=== PATIENT | female | born 1945 | race Caucasian/White ===

== ENCOUNTER 2018-04-20 13:49 | Inpatient (IN) | payer MEDICARE ==
[2018-04-20 14:23] LABS: Bilirubin Small (Negative); Blood, Urine Negative (Negative); Clarity CLOUDY (Clear); Glucose, Urine (Dipstick) Negative (Negative); Leukocyte Moderate (Negative); Nitrite Positive (Negative); Protein, Urine (Dipstick) Trace mg/dL (Neg-Trace); Specific Gravity, Urine 1.025 (1.002-1.036); Urobilinogen 0.2 mg/dL (0.2-1.0); pH, Urine 5.5 (5.0-9.0)
[2018-04-20 14:30] LABS: RBC/HPF 0-3 HPF (0-3); WBC/HPF 21-50 HPF (0-3)
[2018-04-20 14:31] LABS: Bacteria/HPF 3+ HPF (None Seen); Hyaline Casts/LPF 0-3 HYALINE CAST LPF (0-3 Hyaline)
[2018-04-20 15:05] LABS: #Basophils 0.1 thou/uL (0.0-0.2); #Lymphocytes 2.2 thou/uL (1.20-3.40); #Monocytes 1.2 thou/uL (0.11-0.59); %Basophils 0.7 % (0.0-1.0); %Lymphocytes 16.2 % (21.0-51.0); %Neutrophils 74.1 % (42.0-75.0); Hemoglobin 12.6 g/dL (12.0-16.0); Mean Corpuscular HGB CONC 31.5 g/dL (32.0-36.0); Mean Corpuscular Hemoglobin 28.5 pg (27.0-31.0); Mean Corpuscular Volume 90.4 fL (78.0-98.0); Mean Platelet Volume 6.4 fL (7.4-10.4); Platelet Count 489 thou/uL (130-400); RBC Distribution Width 13.2 % (11.5-14.5); Red Blood Cell (RBC) Count 4.42 mill/uL (4.20-5.40); White Blood Cell (WBC) Count 13.4 thou/uL (4.8-10.8)
[2018-04-20] MEDS ORDERED: Iopamidol 370 76% 100 ML VIAL ONE (15:08)
[2018-04-20 15:25] LABS: ALT (SGPT) 18 U/L (8-55); AST (SGOT) 20 U/L (5-34); Albumin 3.3 g/dL (3.4-4.8); Alkaline Phosphatase 84 U/L (40-150); Anion Gap 12 mmol/L (10-20); BUN (Urea Nitrogen) 8 mg/dL (9.8-20.1); Bilirubin, Total 0.5 mg/dL (0.2-1.2); Calc. Creatinine Clearance 0 mL/min (70-130); Calcium 9.3 mg/dL (7.8-10.44); Carbon Dioxide 27 mmol/L (23-31); Chloride 98 mmol/L (98-107); Estimated GFR-MDRD 77; Globulin 4.5 g/dL (2.4-3.5); Glucose 107 mg/dL (83-110); Lipase Less than 4 U/L (8-78); Potassium 4.5 mmol/L (3.5-5.1); Protein, Total 7.8 g/dL (6.0-8.3); Sodium 132 mmol/L (136-145)
[2018-04-20] MEDS ORDERED: Fentanyl 100 MCG/2 ML VIAL ONE ×4 (17:30→21:53)
[2018-04-20] MEDS ORDERED: Cefepime 2 GM VIAL ONE (20:12)
[2018-04-20] MEDS ORDERED: metroNIDAZOLE 500 MG/100 ML BAG ONE (20:12)
--- NOTE | 2018-04-20 20:48 | CT ---
CT ABDOMEN AND PELVIS WITH IV CONTRAST: 04/20/2018 HISTORY: Intermittent left lower quadrant abdominal pain for several months. Generalized weakness and difficu lty ambulating. COMPARISON: None available. FINDINGS: Partial visualization of bilateral breast prostheses. There is linear scarring versus atelectasis in the right middle lobe. There is also a small, approxi mately 7 mm pulmonary nodule in the right middle lobe. There is atelectasis present at each lung bas e. Degenerative changes are seen in the lumbar spine. There is a 2 cm calculus within the gallbladder lumen. There is a subcentimeter, low density focus at the medial aspect, lateral segment, left hepatic lobe. This may be related to volume averaging as opposed to a hypodense lesion, although difficult to darin racterize hypodense lesions cannot be entirely excluded. Subcentimeter, avg-fcbwo-su-characterize, hypodense lesions are seen in each kidney. There is mild left hydronephrosis and hydroureter, with dilatation of the ureter extending to the pel vis, where there are prominent inflammatory changes and phlegmon at the left aspect of the pelvis, ad jacent to the left lateral aspect of the sigmoid colon. There is also mild colonic wall thickening. There is a small fluid collection seen within the wall of the sigmoid colon, measuring approximately 2 cm, which may represent a tiny focal abscess collection. In addition, there is also a heterogeneo us focus in the proximal sigmoid colon which measures 2.2 cm. I am unsure if this is related to feca l material within the colon, or related to a small, contained perforation. There is a fluid and gas collection present in the inferior left psoas muscle and extending into the iliopsoas muscle, most co mpatible with an abscess collection. While overall dimensions are difficult to measure, given the sh ape of the abscess collection, the abscess collection measures approximately 11.8 cm craniocaudal x 6 .7 cm AP x 2.5 cm transverse. A small amount of free fluid is seen in the pelvis. No free intraperitoneal gas is appreciated. The spleen, pancreas, and bilateral adrenal glands demonstrate a normal CT appearance. The urinary bladder is decompressed and not well evaluated. The uterus is small in size. There are fluid filled loops of small bowel, which are at the upper limits of normal in size, which c ould be related to a developing ileus due to inflammatory changes in the left lower quadrant. IMPRESSION: 1. Prominent inflammatory changes and phlegmon in the left hemipelvis with a psoas and iliopsoas abs cess collection, with a probable small abscess collection involving the left lateral wall of the sigm oid colon. A heterogeneous focus is seen in the proximal sigmoid colon, which could be related to ret ained fecal material in the colon, but a contained perforation cannot be entirely excluded. The etio logy for the above findings is difficult to determine on this examination. There are colonic diverti cula seen, and findings could potentially be related to diverticulitis, as there does appear to be th ickening in the sigmoid colon. A neoplastic process involving the sigmoid colon is a differential co nsideration but is thought less likely, and findings are most likely infectious in etiology. 2. Left hydronephrosis and hydroureter due to inflammatory changes in the left hemipelvis. 3. Fluid-filled, mildly prominent loops of small bowel, which could be related to a developing ileus , due to inflammatory change in the left lower quadrant. 4. Cholelithiasis with gallbladder wall thickness at the upper limits of normal. 5. Low density focus, left hepatic lobe, which is difficult to further characterize. 6. Subcentimeter, zcl-gxqqh-db-characterize, hypodense lesions in each kidney. 7. Small amount of free fluid in the pelvis. 8. Approximately 7 mm pulmonary nodule, right middle lobe. Follow-up CT scan thorax is recommended. 9. Prominent atherosclerotic vascular calcifications and atherosclerotic plaque in the abdominal aor ta and iliac arteries. The above findings were discussed with KEON Pollack, in the emergency department, on 8, at 1949 hours. CODE CR POS: CARMITA
[2018-04-20 22:48] VITALS: BMI 19.4
[2018-04-20] MEDS ORDERED: Acetaminophen 325 MG TAB PO PRN (22:52)
[2018-04-20] MEDS ORDERED: Ondansetron ODT 4 MG TAB SL PRN (22:52)
[2018-04-20] MEDS ORDERED: Ondansetron PF 4 MG/2 ML Vial IVP PRN (22:52)
[2018-04-20] MEDS: Sodium Chloride 0.9% 1,000 ML IV SCH (23:05)
[2018-04-21] MEDS: Fentanyl 100 MCG/2 ML VIAL SLOW IVP PRN ×2 (03:48→05:50)
[2018-04-21] MEDS ORDERED: metroNIDAZOLE 500 MG in Premix Bag 1 BAG IVPB SCH (06:00)
[2018-04-21 06:19] LABS: ALT (SGPT) 15 U/L (8-55); AST (SGOT) 19 U/L (5-34); Albumin 2.6 g/dL (3.4-4.8); Alkaline Phosphatase 70 U/L (40-150); Anion Gap 16 mmol/L (10-20); BUN (Urea Nitrogen) 8 mg/dL (9.8-20.1); Bilirubin, Total 0.5 mg/dL (0.2-1.2); Calc. Creatinine Clearance 65 mL/min (70-130); Calcium 8.5 mg/dL (7.8-10.44); Carbon Dioxide 19 mmol/L (23-31); Chloride 107 mmol/L (98-107); Estimated GFR-MDRD Greater than 90; Globulin 3.6 g/dL (2.4-3.5); Glucose 82 mg/dL (83-110); Potassium 4.7 mmol/L (3.5-5.1); Protein, Total 6.2 g/dL (6.0-8.3); Sodium 137 mmol/L (136-145)
[2018-04-21 06:56] LABS: #Eosinphils 0.1 thou/uL (0.0-0.7); #Monocytes 1.7 thou/uL (0.11-0.59); #Neutrophils 10.6 thou/uL (1.40-6.50); %Basophils 0.2 % (0.0-1.0); %Eosinophils 0.7 % (0.0-10.0); %Lymphocytes 19.3 % (21.0-51.0); %Neutrophils 68.7 % (42.0-75.0); Hemoglobin 10.2 g/dL (12.0-16.0); Mean Corpuscular HGB CONC 31.6 g/dL (32.0-36.0); Mean Corpuscular Hemoglobin 27.7 pg (27.0-31.0); Mean Corpuscular Volume 87.7 fL (78.0-98.0); Mean Platelet Volume 7.3 fL (7.4-10.4); Platelet Count 408 thou/uL (130-400); RBC Distribution Width 13.1 % (11.5-14.5); Red Blood Cell (RBC) Count 3.68 mill/uL (4.20-5.40); White Blood Cell (WBC) Count 15.6 thou/uL (4.8-10.8)
[2018-04-21] MEDS ORDERED: Cefepime 2 GM in Sodium Chloride 0.9% 100 ML IVPB SCH (09:00)
[2018-04-21 09:05] LABS: INR-International Normal Ratio 1.3; PTT 38.8 SEC (22.9-36.1); Prothrombin Time 16.6 SEC (12.0-14.7)
[2018-04-21] MEDS: Sodium Chloride 0.9% 1,000 ML IV SCH (09:29)
--- NOTE | 2018-04-21 10:28 | HP ---
CHIEF COMPLAINT: Left groin pain, fever and chills. HISTORY OF PRESENT ILLNESS: The patient is a 72-year-old female who came from [place] to visit her daughter and she got sick. She developed a pain in her left groin other than what she had before, although she had some pain on and off in [place]. Her primary care physician told her that she has diverticulosis and diverticulitis and when she came to visit her daughter who lives in [place], she got sicker and they made decision about going to the emergency room for further evaluation and p ossible treatment. She was found to have abscess in her pelvis and she is admitted to the hospital f or further management of this problem. She complains about the left groin pain which is severe, on a nd off from time to time. It is much worse when she walks. She denied any nausea and vomiting. She denied any headache. Apparently, she has a history of coronary artery disease and MIs x2 and she wa s taking 4 or 5 different medications. She does not really know the names well, but she quit many mo nths ago. She said that they were making her sick and she decided to stop taking them altogether. S he denies any chest pains. She denies any shortness of breath. PAST MEDICAL HISTORY: 1. Diverticulosis. 2. Myocardial infarction x2. 3. Coronary artery disease. PAST SURGICAL HISTORY: 1. Shoulder surgery, status post fall and a rotator cuff tear. 2. Breast implants. 3. Abdominal surgery, unclear purpose. CURRENT MEDICATIONS: Herbs, as I mentioned above, she quit taking her regular medications many month s ago. FAMILY HISTORY: Mother of lung cancer. She was a smoker. Her father is not known to her. She is a very poor historian. SOCIAL HISTORY: She used to smoke half a pack for many, many years. She quit 4 months ago. She does not drink any alcohol. She uses marijuana daily. She lives in [place]. REVIEW OF SYSTEMS: CONSTITUTIONAL: Positive for fever and chills. EYES: Negative for eye pain and eye discharge. ENT: Negative for nasal congestion and epistaxis. RESPIRATORY: Negative for shortness of breath and cough. CARDIOVASCULAR: Negative for chest pain or palpitations. GASTROINTESTINAL: Positive for abdominal pain. Negative for nausea and vomiting. GENITOURINARY: Negative for hematuria and dysuria. SKIN: Negative for erythema or rash. NEUROLOGIC: Negative for headache and focal findings. PSYCHIATRIC: Negative for homicidal or suicidal ideations. PHYSICAL EXAMINATION: VITAL SIGNS: Blood pressure is 97/63, temperature is 98.3, pulse is 66, respiratory rate is 15, O2 s aturation is 97 on room air. HEENT: Head is atraumatic, normocephalic. She looks older than her biological age. She is responsi ve to me properly. Eyes are PERRLA, sclerae is nonicteric. Oral mucosa is dry. NECK: Supple, no lymphadenopathy. Thyroid is not palpable. LUNGS: Emphysematous, no rales or wheezing. HEART: S1, S2 distant. No S3, no S4. ABDOMEN: Soft, nontender, bowel sounds are present, no organomegaly. The left groin, there is a pal pable mass approximately 2 x 3 inches, tender on palpation. SKIN: Skin is not changed in the left groin. EXTREMITIES: No clubbing, cyanosis or edema. Peripheral pulses somewhat diminished on both tibialis posterior and dorsalis pedis arteries, similar bilaterally. CARDIOLOGY CLINICAL NURSE SPECIALIST: She is alert and oriented x4. There is not any sensory or motor deficits present. Cranial ner ves are intact. LABORATORY DATA: White count of 15.6, hemoglobin 10.2, hematocrit 32.3, platelet count is 408, lymph ocytes 19.3, INR is 1.3, PT of 16.6, APTT 38.8, normal sodium and potassium and chloride, CO2 of 19, BUN 8, creatinine 0.62, albumin 2.6, lipase less than 4. Urinalysis showed trace of ketones, positiv e for nitrites, small amount of bilirubin, moderate leukocyte esterase positive, 21-50 WBCs, 11-20 sq uamous epithelial cells, 3+ bacteria, 0-3 hyaline casts. Lactic acid yesterday, 2.1, then rechecked it was 1.0, her anion gap calculated is 14. CT of the abdomen showed: 1. Prominent inflammatory changes and phlegmon in the left hemipelvis with a psoas and iliopsoas abs cess collection with a probable small abscess collection involving the left lateral wall of the sigmo id colon. 2. Left hydronephrosis and hydroureter due to inflammatory changes in the left hemipelvis. 3. Fluid filled mildly prominent loops of small bowel which are most likely related to her abscess a nd possible developing ileus due to inflammatory changes in the left lower quadrant of the abdomen. 4. Cholelithiasis with gallbladder wall thickness at the upper limits of normal. 5. Low density focus left hepatic lobe which is difficult to further characterize. 6. Subcentimeter too small to characterize hypodense lesions in each kidney. 7. Small amount of free fluid in the pelvis. 8. Approximately 7 mm pulmonary nodule right middle lobe. 9. Prominent atherosclerotic vascular calcifications and atherosclerotic plaque in the abdominal aor ta and iliac arteries. IMPRESSION: 1. Iliopsoas and psoas abscess. 2. Left hydronephrosis and hydroureter, most likely secondary to #1. 3. Possible early ileus secondary to #1. 4. Cholelithiasis. 5. Low density focus in the left hepatic lobe, which is difficult to further characterize. 6. Subcentimeter too small to characterize hypodense lesions in each kidney. 7. Seven millimeter pulmonary nodule right middle lobe. Further investigation should be done on out patient basis. 8. Prominent atherosclerotic vascular calcification and atherosclerotic plaque. 9. History of myocardial infarctions x2. 10. Coronary artery disease. 11. Noncompliance. The patient stopped taking her medications many months ago and we know that she had several stents placed in her coronary arteries when she had her heart attack in September. PLAN: The plan is to admit her to the surgical floor. Condition is fair. Activity: Bed rest. IV fluids; normal saline at 100 mL per hour, metronidazole 500 mg q.8 h IV piggyback, cefepime 2 grams q .12 hours. Pain management with fentanyl 25 mcg slow IV push q.4h. Surgical evaluation by Dr. Franko pimentel who saw the patient in the emergency room and she will make decision about how this abscess is goi ng to be treated, whether it is going to be drained by radiologist or she will do the surgical open p rocedure. Also will continue both antibiotics. There were some changes in urine suggestive of UTI. She will be on n.p.o. for now until decisions are made. She will have SCDs for DVT prophylaxis.
[2018-04-21] MEDS ORDERED: Aspirin 81 mg Enteric Coated Tablet PO SCH (10:30)
[2018-04-21 13:40] LABS: Bilirubin Negative (Negative); Blood, Urine Negative (Negative); Clarity CLEAR (Clear); Glucose, Urine (Dipstick) Negative (Negative); Leukocyte Small (Negative); Nitrite Negative (Negative); Protein, Urine (Dipstick) Negative (Neg-Trace); Specific Gravity, Urine 1.034 (1.002-1.036); Urobilinogen 0.2 mg/dL (0.2-1.0)
[2018-04-21 13:44] LABS: Bacteria/HPF None Seen HPF (None Seen)
[2018-04-21] MEDS ORDERED: Lidocaine 1% PF 5 ML VIAL ONE (13:47)
[2018-04-21] MEDS ORDERED: Metoclopramide HCl 10 MG/2 ML VIAL ONE (13:47)
[2018-04-21] MEDS ORDERED: Ondansetron PF 4 MG/2 ML Vial ONE (13:47)
[2018-04-21] MEDS ORDERED: PROPOFOL 200 MG/20 ML VIAL ONE (13:47)
[2018-04-21] MEDS ORDERED: Glycopyrrolate 0.2 MG/ML 5 ML SYRINGE ONE (13:47)
[2018-04-21] MEDS ORDERED: Dexamethasone 20 MG/5 ML VIAL ONE (13:47)
[2018-04-21] MEDS ORDERED: PHENYLEPHRINE-NS 100 MCG/ML 10 ML SYRINGE ONE (13:47)
[2018-04-21 13:54] LABS: Pathc Cast-AUWi Flag 3.05 (0-2.49)
[2018-04-21] MEDS ORDERED: Famotidine/PF 20 mg/2ml Vial ONE (13:56)
[2018-04-21] MEDS ORDERED: Iothalamate Meglumine 60% 50 ML VIAL FS ONE (13:56)
[2018-04-21] MEDS ORDERED: Fentanyl 100 MCG/2 ML VIAL ONE (13:56)
[2018-04-21] MEDS ORDERED: Levofloxacin 500 mg/D5W 100 ml Premix Bag ONE (14:06)
[2018-04-21 14:10] LABS: Hyaline Casts/LPF 0-3 HYALINE CAST LPF (0-3 Hyaline); Other Casts/LPF None Seen LPF (0-3 Hyaline)
[2018-04-21] MEDS ORDERED: Meperidine HCl/PF 25 MG/ML VIAL SLOW IVP PRN (14:47)
[2018-04-21] MEDS ORDERED: Ondansetron HCl/PF 4 MG/2 ML Vial IVP PRN (14:47)
[2018-04-21] MEDS ORDERED: Promethazine HCl 25 MG/ML VIAL SLOW IVP PRN (14:47)
[2018-04-21] MEDS ORDERED: SUGAMMADEX SODIUM 200 MG/2 ML VIAL ONE (15:10)
--- NOTE | 2018-04-21 15:55 | RAD ---
RETROGRADE PYELOGRAM: 04/21/18 Two portable fluoroscopic images are presented for interpretation. HISTORY: 72-year-old female with left lower quadrant pain and left renal hydronephrosis. There is injection of the left ureter with areas of marked narrowing of the ureter at the level of th e inferior left sacral ala region with proximal dilatation beyond this areas of marked narrowing. A l eft ureteral stent is placed. IMPRESSION: Marked focal area of narrowing involving the left ureter at approximately the inferior left sacral al a region with proximal dilatation of the upper left ureter and renal upper collecting system. A left ureteral stent placed. POS: LILLY
[2018-04-21] MEDS ORDERED: Albumin 25% 100 ML ONE (16:01)
--- NOTE | 2018-04-21 16:50 | EKG ---
Test Reason : PREOP Blood Pressure : / mmHG Vent. Rate : 072 BPM Atrial Rate : 072 BPM P-R Int : 132 ms QRS Dur : 084 ms QT Int : 426 ms P-R-T Axes : 056 -01 -23 degrees QTc Int : 466 ms Normal sinus rhythm Low voltage QRS Possible Inferior infarct , age undetermined Inferior T wave changes Abnormal ECG No previous ECGs available Confirmed by DR. Davin FLAHERTY ([id number]) on 04/21/2018 4:50:23 PM Referred By: OLIVER Confirmed By:DR. Davin FLAHERTY
[2018-04-21] MEDS ORDERED: Phenazopyridine HCl 97.5 MG TABLET PO PRN (17:33)
[2018-04-21] MEDS: Piperacillin/Tazobactam 3.375 GM in Sodium Chloride 0.9% 100 ML IVPB SCH (18:21)
--- NOTE | 2018-04-21 19:26 | OP ---
DATE OF PROCEDURE: 04/21/2018 PREOPERATIVE DIAGNOSES: 1. History of left pelvic abscess, iliopsoas abscess, phlegmon due to diverticulitis, possible colon mass. 2. Left hydronephrosis secondary to above. POSTOPERATIVE DIAGNOSES: 1. History of left pelvic abscess, iliopsoas abscess, phlegmon due to diverticulitis, possible colon mass. 2. Left hydronephrosis secondary to above. PROCEDURE: Cystoscopy, left retrograde, 4.8 x 28 double-J ureteral stent. SURGEON: Maryanne Monreal D.O. ANESTHESIA: General. COMPLICATIONS: None apparent. DISPOSITION: To the recovery room in stable condition. INTRAOPERATIVE FINDINGS: 1. Bladder grossly unremarkable. 2. Left hydronephrosis with tortuous proximal ureter, ureteral stricture narrowing at the level of t he S1 to ureter. INDICATIONS FOR THE PROCEDURE AND HISTORY: Ms. Santos is a 72-year-old female who presented with pelvic abdominal discomfort, found to have pelvic, iliopsoas abscess due to likely sigmoid diverticu litis, although mass cannot be completely excluded. The patient is being monitored by General Surger y. Urologic consultation was obtained due to left hydronephrosis to the level of the phlegmon. She was advised regarding indications for ureteral stent placement. Risks and complications and indicati ons were reviewed. She desires to proceed. DESCRIPTION OF THE PROCEDURE: After an informed consent is signed, the patient is taken to the opera ting room, placed in a dorsal lithotomy position. Bilateral SHAMA hose, SCDs, and broad-spectrum antib iotics were provided. A 21 Macanese cystoscope was utilized for cystoscopy which demonstrated no evide nce of bladder or urethral mass. The UO's are identified in normal anatomical location. The left UO was intubated with a 5 Macanese open-ended catheter. Of note, KUB perioperative does demonstrate some retained contrast in the proximal ureter consistent with the CT scan. I was able to opacify the col lecting system without difficulty, demonstrating a left ureteral stricture at the level of the phlegm on at the S1 to ureter. The second is approximately 2 cm on KUB fluoroscopy. There was proximal tor tuosity of the ureter. A 0.35 sensor wire was able to be passed without significant issues. I was u nable to pass a 6-Macanese stent, therefore a 4.8 x 28 double-J ureteral stent passed. A 4.8 stent was able to be passed without difficulty. She tolerated the procedure well and transported to the [facility] room in stable condition. She is to be monitored by primary, General Surgery Service as she is s cheduled for CT guided pelvic abscess drainage. As she does have a ureteral stricture formation due to significant inflammatory component the phlegmon, we will leave the indwelling ureteral stent and r estage her pending General Surgery disposition regarding her pelvic abscess. Continue antibiotics du e to urine culture being positive for E. coli.
[2018-04-22] MEDS: Acetaminophen 1,000 MG in Premix Bag 1 BAG IVPB PRN ×3 (00:26→12:07)
[2018-04-22] MEDS: Piperacillin/Tazobactam 3.375 GM in Sodium Chloride 0.9% 100 ML IVPB SCH ×5 (00:26→23:19)
--- NOTE | 2018-04-22 04:21 | CON ---
DATE OF CONSULTATION: 04/21/2018 REASON FOR CONSULT: Complicated diverticulitis. HISTORY OF PRESENT ILLNESS: Ms. Santos is a 72-year-old woman who reports that she has been havi ng abdominal pain off and on for the past 4 months. She states that she is taking antibiotics for it and gets better, but then it comes back. She also reports that she has had episodes of diarrhea and swelling in her groin over the same amount of time, both of which come and go. She is unable to say really how long her most current episode has persisted, but over the past few months, she has lost a bout 20-25 pounds and has had an overall decline in her health. She has a known history of diverticu li and diverticulitis and states that she had a colonoscopy at another facility 2-4 years ago, which did not show any other abnormalities. She has not had any nausea or vomiting, but has had some chill s, but mostly just malaise and abdominal pain. PAST MEDICAL HISTORY: Coronary artery disease, reportedly she has had 2 heart attacks, most recently in September and has had 6 stents placed for this. She also has a history of diverticulosis and diverti culitis. PAST SURGICAL HISTORY: Shoulder surgery in July. Bilateral breast implants and removal of a lar ge birthmark from her lower abdomen. She states that there was no intra-abdominal component to this surgery. SOCIAL HISTORY: The patient does not smoke or drink, but does use marijuana. She is currently stayi ng with her daughter After getting sick during her visits here. MEDICATIONS: She is on no medications except for herbal supplements. She was prescribed a beta-bloc ker, aspirin, and Plavix after her heart attack, but stopped taking those because she felt like they were making things worse. REVIEW OF SYSTEMS: Ten-system review of systems is negative except per HPI. She has not had any dys uria or hematuria. FAMILY HISTORY: Noncontributory. ALLERGIES: She reports no known drug allergies. PHYSICAL EXAMINATION: VITAL SIGNS: Patient has been afebrile since her admission. Heart rate in the 60s, respirations 16, 94% saturated on room air, blood pressure 98/62. GENERAL: Reveals a thin, frail, elderly woman, in no acute distress. She is not flushed or toxic in appearance. She is not jaundiced or icteric. HEENT: Unremarkable. NECK: Supple without lymphadenopathy or thyroid nodules. HEART: Regular in its rate and rhythm without murmurs, rubs, or gallops. LUNGS: Clear to auscultation bilaterally. ABDOMEN: Soft, slightly distended, tender to palpation in the lower greater than upper abdomen and l eft greater than right. She has swelling and tenderness in her left groin, which is quite severe and a healed lower transverse abdominal incision. EXTREMITIES: Warm and well perfused without edema. NEUROLOGIC: No focal deficits. PSYCHIATRIC: Alert, oriented, and appropriate. IMAGING: I have reviewed the patient's CT with our radiologist. She has fairly severe diverticuliti s of the sigmoid colon with some areas adjacent to the colonic loops consistent with contained perfor ations and a large iliopsoas abscess containing gas and liquid extending down into the left groin. T he interloop areas are quite small. There are two, both of which measure under 3 cm at the iliopsoas abscesses over 6 cm in size and easily percutaneously accessible. She also has hydronephrosis of th e left kidney. LABORATORY DATA: Reveal an elevated white count of 15.6, hematocrit of 32, platelet count of 408. C oags were unremarkable and electrolytes were fairly normal. Her albumin is low at 2.6. UA on arriva l was contaminated, but had a lot of white cells, leukocyte esterase, and nitrites and her initial ur ine culture from her clean catch urine showed greater than 100,000 colonies of presumptive E. coli. ASSESSMENT: Complicated diverticulitis with perforation into the large psoas abscess. I have recomm ended percutaneous drainage and antibiotics to try to allow the diverticulitis to subside. Surgery a t this point would be quite hazardous due to the large degree of inflammation and she would require a n end-colostomy for at least 6 months. I was concerned about the hydronephrosis and put urology cons ult this morning and given the E. coli in her urine. Dr. Monreal elected to place a ureteral chandni nt. This will certainly be useful as the patient proceeds to surgery, she would be at very high risk for needing open surgery and risk for ureteral injury will be high. Given the patient's high risk f or need to proceed to the operating room, I have recommended that she have a Cardiology consult. We should also try to obtain her records from [place]. The patient states that she is able to get most of these records through her portal and that she also has printed records at home which her family i s going to bring in. Because of the need for the ureteral stent, her percutaneous drain had to be re scheduled for tomorrow since the patient has not had any nausea or vomiting, I think a clear liquid d iet is probably safe, although she will need to be n.p.o. after midnight for her next procedure.
--- NOTE | 2018-04-22 05:35 | CON ---
DATE OF CONSULTATION: 04/21/2018 CARDIOLOGY CONSULT NOTE INDICATION FOR CONSULTATION: This is a 72-year-old female with a history of coronary artery disease, who has been found to have a left groin or psoas abscess. We were asked to see her concerning her cardiac status. She is pain free, is asymptomatic at this time, but does have a history of stent placement recently and has not been taking her medications. HISTORY OF PRESENT ILLNESS: This is a very unfortunate 72-year-old female, apparently underwent angioplasties and stent placements in the past. I believe the first time according to the patient was 15 years ago. She most recently had a redo stent what sounds like it may perhaps in the right coronary, but was uncertain exactly where they were placed. Back in September of this year, she had more stents placed. I suspect this in the right coronary artery, perhaps she had the restenosis. She states she only had one-vessel disease; however, we do not have those records, and I cannot substantiate that information. She had been placed on Plavix in the past, but she stopped taking her medications, thinking that they were not helping her. She was on other medications, but does not remember the name of the medications, but has not been taking them, but she has continued to smoke until September of this year, and she continues to smoke marijuana. She has occasional alcohol use, but otherwise, she has decreased the amount recently and now pretty much just drinks socially. She denies any chest pain and has no shortness of breath and has been doing quite well apparently since her stent placements, has also a history of myocardial infarction, and according to the EKG, it looks as if she has had an inferior myocardial infarction in the past. PAST MEDICAL HISTORY: Significant for the coronary artery disease, angioplasty and stent placements as noted above in 2018, and prior to that, she also had stents placed 15 years ago. She does have a history of myocardial infarction, history of diverticulitis or diverticuli. She has had a rotator cuff repair, and she also had breast implants. MEDICATIONS: She had been off her medications. She is uncertain as to what she was taking, but at some point in time, she was on Plavix, and she has apparently been doing quite well. She does say she had continued to take some aspirin. Once we have determined what kind of stent she has, it might be advantageous to the patient to resume her Plavix, but once I would suggest that we address her abscess first, and once it is finished, then we can resume her Plavix. ALLERGIES: None according to the patient. FAMILY HISTORY: Unremarkable for any early heart disease. Her mother did have some lung cancer and in her 80s. SOCIAL HISTORY: The patient worked in the past. She now just does what she wants to do pretty much. 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 She smoked heavily in the past, but stopped about 4 years ago. She has no significant alcohol use. She has children, who are alive and well. Apparently , she is staying with her daughter at this time. REVIEW OF SYSTEMS: A 12-point review of systems were unremarkable except for the abscess in the left groin area, and on review, the groin area does not appear that this was an area that she underwent angioplasty and stent placement or cardiac catheterization. I did not see any signs that she had performed it, but it appears to be that it was done on the right side. Otherwise, her 12- point review of systems was unremarkable. PHYSICAL EXAMINATION: GENERAL: Reveals a thin-statured, elderly female, who actually appears her stated age. She at times appears to be somewhat confused about some of the issues regarding her illness at least surrounding her cardiac status. VITAL SIGNS: She is afebrile at this time. Heart rate is in the 60s-70s and shows a sinus rhythm on the EKG, respiratory rate is about 18, O2 saturation is 93%, blood pressure 99/62. HEENT: Shows head to be normocephalic and atraumatic. Carotid pulses are present. There were no bruits. There is no JVD. The thyroid is not enlarged. CHEST: Clear to auscultation. I did not hear any rales, rhonchi, or wheezing at this time. CARDIOVASCULAR: Exam reveals a regular rate and rhythm. She has a normal S1, S2. I cannot hear an S3 nor an S4. There were no significant murmurs, heaves, thrills, bruits, or rubs. ABDOMEN: Soft and nontender. She does have tenderness of the left groin area. There is also palpable mass at that area and that most likely is the area of her abscess. She also has some discoloration over the suprapubic area, which she says there was a large mole or discoloration had been removed in the past. There was a defect that had been removed. EXTREMITIES: Show no clubbing, cyanosis, or edema. Pedal pulses are present as well as femoral pulses. LABORATORY DATA: Shows a sodium of 137. Her BUN was 8 with a creatinine of 0.62. Blood sugar was 82. WBC is 15,600, hemoglobin 10.2, platelet count of 408,000. IMAGING STUDIES: EKG shows a normal sinus rhythm with evidence of old inferior myocardial infarction. IMPRESSION: 1. Known coronary artery disease, for which, she has undergone angioplasty and stent placement with a history of myocardial infarctions in the past. I suspect this involves the right coronary artery. It will be advantageous for us to obtain records to determine exactly whether she has any other underlying coronary artery disease, to see whether or not she will be at risk, but she denies any chest pain. 2. History of apparently an iliopsoas abscess with some left hydronephrosis and hydroureter. I believe she is to undergo drainage in the next day or two. She also has had some discussion as to whether or not to approach iliopsoas abscess either with surgically or to percutaneously, it would appear that most likely her cardiac status will be stable for either method. I believe she has already had the stent placed to the left kidney area for the hydronephrosis. 3. History of tobacco abuse in the past. She no longer smokes. She does continue to use marijuana on a routine basis. It was suggested that she abstain from this at this time. At this time, we will obtain an echocardiogram for evaluation of left ventricular systolic function. We will try to obtain records to determine what stents were placed and where and whether or not she has had any previous recent stress testing or cardiac echocardiograms. She thinks she knows the hospital where her procedure was performed, but she is not aware of the physician. This was done at [facility] in [place], [place]. We will see whether or not we can obtain some records as to the cardiac history. DORCAS
[2018-04-22] MEDS: Aspirin 81 mg Enteric Coated Tablet PO SCH (07:31)
--- NOTE | 2018-04-22 08:07 | CON ---
DATE OF CONSULTATION: 04/21/2018 REASON FOR CONSULT: 72-year-old female admitted to medical service, visiting family from [place]. She has had history of lower pelvic, abdominal discomfort , with decreased appetite. CT demonstrated pelvic, iliopsoas abscess with significant inflammation of the sigmoid colon likely diverticulitis. Gen. surgery following, currently being managed conservatively. Plan percutaneous drainage of lower pelvic abscess. CT also demonstrated left hydronephrosis at the level of the phlegmon in the lower pelvis therefore urologic consultation advise. Patient does have history of tobacco abuse, prior history of [place] cardiology is yet to seen. Urine culture is contaminated however demonstrates Escherichia coli which I did initiate antibiotic therapy. She denies history of kidney stones, recurrent UTI. PAST MEDICAL HISTORY: Diverticulosis, myocardial infarction x2, coronary artery disease. PAST SURGICAL HISTORY: Includes left rotator cuff, breast implants, likely abdominoplasty based on incision. CURRENT MEDICATIONS: Include aspirin 81 mg, sodium chloride. I did add Zosyn upon reviewing her urine culture with [employer] accounting professional to OR. ALLERGIES: No known drug allergies. FAMILY HISTORY: Positive for lung cancer. SOCIAL HISTORY: History of tobacco abuse, quit 4 months ago, uses marijuana daily. Lives in [place]. PHYSICAL EXAMINATION: ABDOMEN: Soft. There is an incision consistent with abdominoplasty. GENITOURINARY: Currently deferred. EXTREMITIES: No cyanosis, clubbing or edema. NEUROLOGIC: No gross focal deficits. PSYCHIATRIC: Appears to be appropriate and intact. PERTINENT LABORATORIES: White count 13 upon presentation, currently is 15, hemoglobin 10, platelets 408. INR is 1.3, PTT 38, creatinine stable at 0.62. Urinalysis demonstrates nitrite positive urine, output is contaminated with moderate leukocytes, 20-50 wbc's, 0-3 rbc's. Urine culture demonstrating E. coli, sensitivity pending. Repeat UA C&S by primary service. CT of the abdomen and pelvis, prominent inflammatory changes and phlegmon in the left hemipelvis with psoas, iliopsoas abscess collection. There is likely a small abscess collection involving the left lateral and sigmoid colon. Diverticulosis, cancer cannot be completely ruled out from the colon. There is incidental left hydroureteronephrosis due to inflammatory changes in the hemipelvis. Per my review, there is symmetric enhancement; however, there is dilated collecting system with dilated ureter to the level of the phlegmon. Incidental 7 mm pulmonary nodule, prominent atherosclerosis. IMPRESSION/PLAN: 1. Ms. Santos is a 72-year-old female from [place] admitted for pelvic abscess likely from sigmoid diverticulitis, iliopsoas psoas abscess. 2. Urologic issues of hydronephrosis secondary to inflammatory process. Urine culture positive, although it is contaminated; however, may reflect true urinary tract infection. Repeat UA C&S has been obtained. Advised patient regarding cystoscopy, left retrograde stent placement. After her convalescence from the inflammatory process of her pelvis and definitive treatment of her diverticulosis, diverticulitis, I would restage her ureter with retrograde to assess for stent removal candidacy. She is NPO. [employer] accounting professional to OR. [facility]
--- NOTE | 2018-04-22 10:10 | PRG ---
DATE OF SERVICE: 04/22/2018 SUBJECTIVE: The patient is seen and examined at bedside. Dr. Galvan is in the room and she is visi ting with the patient too. The patient is doing significantly better. She does not have much pain a nymore. She did not have fever. OBJECTIVE: VITAL SIGNS: Blood pressure is 107/65, pulse is 52, temperature 97.6, respiratory rate is 16, O2 sat uration is 96% on room air. HEENT: Head is atraumatic and normocephalic. Eyes are PERRLA. Sclerae is nonicteric. Oral mucosa is somewhat dry. NECK: Supple, no lymphadenopathy. LUNGS: Emphysematous. HEART: S1 and S2 normal, no S3, no S4. ABDOMEN: Soft, nontender, bowel sounds are present, no organomegaly. Left groin palpable lesion as yesterday, somewhat smaller and nontender on palpation. There is no erythema in the groin. NEUROLOGICAL EXAMINATION: She is alert and oriented x4. There is not any motor or sensory deficit. Cranial nerves are intact. LABORATORY DATA: None this morning. Microbiology shows growth of E. coli, which is almost pansensit garry except for fluoroquinolones. IMPRESSION: 1. Iliopsoas abscess, secondary to diverticulitis. Patient is on Zosyn at this point. She will hav e her abscess drained by Interventional Radiology today. 2. Left hydronephrosis with hydroureter. The patient was seen by Dr. Monreal, urologist, who pl aced a stent to her left ureter stricture yesterday. 3. Cholelithiasis, asymptomatic. 4. A 7 mm pulmonary nodule in the right middle lobe. Further investigation will be done on outpatie nt basis. 5. Prominent atherosclerotic vascular calcification and atherosclerotic plaque in setting of history of coronary artery disease and myocardial infarctions x2. 6. Noncompliance. The patient was seen by planner, who is trying to get more information from her place where she had stenting done during her myocardial infarction. At this point, the patient is not complaining about any chest pains, so as mentioned above, the plan is to go forward with the percutaneous drainage of the abscess today. Continue pain management, cont inue IV Zosyn, and most likely, she will be on clear liquids today. We will continue current regimen with IV fluids.
[2018-04-22] MEDS ORDERED: Midazolam HCl 2 mg/2 ml Vial ONE (10:12)
[2018-04-22] MEDS ORDERED: Lidocaine 1% PF 5 ML VIAL ONE (10:13)
[2018-04-22] MEDS ORDERED: Sodium Bicarbonate 2.5 MEQ/5 ML VIAL ONE (10:13)
[2018-04-22] MEDS ORDERED: Fentanyl 100 MCG/2 ML VIAL ONE (10:29)
--- NOTE | 2018-04-22 10:55 | PDOC.GSPN ---
Surgery Progress Note: Subj - Subjective Narrative: Patient is feeling much better today. Her abdominal pain is gone down and the pain and swelling in her groin his last period she has passed a lot of gas and had a mucousy bowel movement. She denies any nausea vomiting fevers or chills. Her abdomen is soft and less distended. She is only mildly tender to palpation in the left lower quadrant and groin. The swelling in the groin does seem less. Urine output is okay. Assessment/plan: Complicated diverticulitis with symptomatic improvement on antibiotics. She is scheduled for percutaneous drain of her iliopsoas abscess today. I am hopeful that we can avoid surgery during this hospitalization. I consider starting her on TPN given her clinical improvement. He can hold off on this. Hopefully we will be able to advance her diet to full liquids after her percutaneous drain placement, and address her chronic malnutrition with dietary supplements and protein shakes. Dr. Valera will be covering for the next few days as I'm going out of town. Surgery Progress Note: Obj - Vital signs Vital signs: Vital Signs - Most Recent Temp Pulse Resp BP Pulse Ox 97.6 F 52 L 16 107/65 96 04/22/18 07:59 04/22/18 07:59 04/22/18 07:59 04/22/18 07:59 04/22/18 08:00 Surgery Progress Note: Results - Labs Result Diagrams: 04/21/18 05:29 04/21/18 05:29
--- NOTE | 2018-04-22 15:53 | CT ---
CT GUIDED LEFT PSOAS AND ILIOPSOAS ABSCESS COLLECTION DRAINAGE: 04/22/18 HISTORY: Fluid and gas collection involving the distal left psoas muscle and extending to the left iliopsoas m uscle. Drainage was requested. TECHNIQUE: The procedure including risks and complications were explained to the patient and informed consent wa s obtained. The patient was placed on the CT scan table in the supine position. Limited noncontrasted CT scan was obtained through the level of the abscess collection with grid localizer in place. An ar ea was marked and then meticulously prepped and draped in the usual sterile fashion. Skin and subcutaneous tissues were infiltrated with buffered 1% lidocaine for local anesthesia. 21 ga uge needle was advanced into the collection and position was confirmed with three axial noncontrasted CT images. The needle was exchanged over a 0.018 inch guide wire for a 5 [place] introducer sheath an d a 0.035 inch Amplatz guide wire was placed. Positioning was confirmed with axial CT images. A small skin incision was made. The introducer sheath was exchanged over the quide wire for an 8 Fren ch tissue dilator followed by placement of an 8 [place] Wilmer loop drainage catheter. The guide wire wa s removed, and approximately 10 mL of purulent fluid was aspirated. Positioning was evaluated with ax ial noncontrasted CT images. Wilmer loop portion of the drainage catheter was noted to be within the co llection in the region of the psoas muscle and as the result the catheter was withdrawn. An addition al 20 mL of purulent fluid was aspirated. The catheter was flushed and placed to gravity drainage. The catheter was sutured in place utilizing 2-0 Ethilon suture. A dry sterile dressing was placed. FINDINGS: Technically successful left psoas and iliopsoas abscess drainage with placement of an 8 [place] Wilmer loop all purpose drainage catheter within the collection. Market Maker images demonstrate partial visualization of a left ureteral stent. Most proximal portion which is not imaged. Small amount of free fluid is seen in the pelvis. IMPRESSION: Technically successful left psoas/iliopsoas abscess drainage. Specimen was sent for labs. POS: [facility]
--- NOTE | 2018-04-22 17:28 | PRG ---
DATE OF SERVICE: 04/22/2018 INPATIENT PROGRESS NOTE SUBJECTIVE: The patient is resting comfortably, echocardiogram in progress. The patient states that her component of her left lower pelvic discomfort has improved since the stent. OBJECTIVE: VITAL SIGNS: Stable. She is afebrile. I's and O's 550 out. not strictly documented. ABDOMEN: Soft. No rigidity, no rebound. She does have residual left mid to lower pelvic discomfort with no gross rigidity appreciated. PERTINENT LABORATORY DATA: No new labs. Creatinine yesterday 0.6. Repeat UA with initial one being contaminated appears to be still contaminated. Prior urine culture demonstrating E. coli. Repeat urine culture is pending. IMPRESSION AND PLAN: Ms. Santos is a 72-year-old female who presents with, 1. Left lower pelvic abscess. 2. Iliopsoas abscess. 3. Likely diverticulitis. 4. Urologic issues of left hydroureteronephrosis, cystoscopy retrograde demonstrates component of ureteral stricture at the level of the phlegmon, postop day number 1 stent. The patient will continue indwelling ureteral stent. I will follow along on this admission. Informed patient that after resolution of her pelvic abscess, phlegmon, I would advise regarding restaging cystoscopy, ureteral stricture dilatation. [facility]
[2018-04-23] MEDS: Oxybutynin 5 MG TAB PO PRN ×2 (02:34→12:05)
[2018-04-23 05:56] LABS: #Lymphocytes 2.7 thou/uL (1.20-3.40); #Monocytes 0.8 thou/uL (0.11-0.59); #Neutrophils 7.5 thou/uL (1.40-6.50); %Basophils 0.2 % (0.0-1.0); %Eosinophils 0.3 % (0.0-10.0); %Lymphocytes 24.1 % (21.0-51.0); %Monocytes 7.6 % (0.0-10.0); %Neutrophils 67.7 % (42.0-75.0); Hemoglobin 9.5 g/dL (12.0-16.0); Mean Corpuscular HGB CONC 30.6 g/dL (32.0-36.0); Mean Corpuscular Hemoglobin 27.8 pg (27.0-31.0); Mean Corpuscular Volume 90.8 fL (78.0-98.0); Mean Platelet Volume 6.3 fL (7.4-10.4); Platelet Count 476 thou/uL (130-400); Red Blood Cell (RBC) Count 3.42 mill/uL (4.20-5.40); White Blood Cell (WBC) Count 11.1 thou/uL (4.8-10.8)
[2018-04-23] MEDS: Piperacillin/Tazobactam 3.375 GM in Sodium Chloride 0.9% 100 ML IVPB SCH (06:00)
[2018-04-23 06:38] LABS: Anion Gap 9 mmol/L (10-20); BUN (Urea Nitrogen) 9 mg/dL (9.8-20.1); Calc. Creatinine Clearance 62 mL/min (70-130); Calcium 8.1 mg/dL (7.8-10.44); Carbon Dioxide 21 mmol/L (23-31); Chloride 112 mmol/L (98-107); Estimated GFR-MDRD 90; Glucose 84 mg/dL (83-110); Potassium 4.4 mmol/L (3.5-5.1); Sodium 138 mmol/L (136-145)
--- NOTE | 2018-04-23 08:33 | PRG ---
DATE OF SERVICE: 04/23/2018 SUBJECTIVE: The patient is sleeping, continues to have some mid lower quadrant abdominal discomfort. PHYSICAL EXAMINATION: VITAL SIGNS: Stable. She is afebrile. ABDOMEN: Soft, some tenderness in the left mid to lower quadrant. No rigidity , no rebound. LABORATORY DATA: White blood cell count is 11, hemoglobin 9.5, platelets 476, creatinine 0.65. Repeat urine culture negative thus far. Previous urine culture E. coli, currently on Zosyn. It is pansensitive except to quinolones. IMPRESSION AND PLAN: 1. Ms. Santos is a 72-year-old female with left iliopsoas, pelvic abscess secondary to diverticulitis. 2. Left hydronephrosis secondary to ureteral stricture due to significant inflammatory phlegmon formation in the pelvis, status post stent, postop day # 2. Continue indwelling ureteral stent. I will restage her ureter in a few weeks pending convalescence from her diverticulitis and pelvic abscess. patient informed. 3. Positive urine culture likely a true urinary tract infection even though it is contaminated. I do recommend treatment for a few days as she has had a recent stent. Repeat urine culture is negative. Currently on Zosyn. May discontinue Zosyn as she is on full liquids. will transition to oral Omnicef for a few days. Recommend Omnicef for a course of 5-7 days. She will have an elective followup with me as an outpatient to readdressed her ureteral stent at a later date. DORCAS
--- NOTE | 2018-04-23 09:03 | PRG ---
DATE OF SERVICE: 04/23/2018 SUBJECTIVE: The patient is seen and examined at the bedside. She complains about the left groin dulce maria n where the drain was placed by radiologist yesterday. Yesterday she had some tangerine and she had full liquid diet, tolerating well. No nausea, no vomiting. OBJECTIVE: VITAL SIGNS: Blood pressure is 113/67, temperature 98.5, pulse 65, respiratory rate 16, O2 saturatio n is 94% on room air. HEENT: Head is atraumatic, normocephalic. Eyes are PERRLA. Sclerae nonicteric. Oral mucosa is patrica st. NECK: Supple, no lymphadenopathy. Thyroid is not palpable. LUNGS: Lungs are somewhat emphysematous, breath sounds diminished diffusely. HEART: S1, S2, somewhat distant. No S3, no S4. ABDOMEN: Soft, mildly to moderate tender in the left lower quadrant. No guarding. EXTREMITIES: No clubbing, cyanosis or edema. NEUROLOGIC: She is alert and oriented x4. There is not any sensorimotor deficits present. Cranial nerves are intact. LABORATORY DATA: Showed white count of 11.1, hemoglobin 9.5, hematocrit 31.1, platelet count is 476, 000. Sodium of 138, potassium 4.4, chloride 112, CO2 of 21, BUN 9, creatinine 0.65. Lactic acid not checked. Calcium 8.1. Microbiology showed E. coli in the urine culture which is resistant to Cipro . Otherwise, is pansensitive. Also, is resistant to levofloxacin. Abdominal aspirate preliminary report is many WBCs, moderate gram positive cocci in pairs and few gra m negative rods and culture is presumptive E. coli many. I suspect that there is going to be some ot her organism since she has moderate gram positive cocci in pairs on her Gram stain. Echocardiogram was also done which showed ejection fraction of left ventricle was 59-65%, normal righ t ventricular size and function, normal left atrium, normal right atrium, mild to moderate tricuspid regurgitation and mild to moderate pulmonic regurgitation is present. IMPRESSION: 1. Iliopsoas abscess secondary to diverticulitis. The specimen from the drained abscess, which was done yesterday by interventional radiologist who got approximately 30 mL of pus out of the abscess. The patient was started on Omnicef by Dr. Monreal, but I would like to continue her Zosyn for now until we have final report on this culture since she is growing a lot of gram positive cocci and it is not clear what pathogen it is. 2. Left hydronephrosis with hydroureter, status post stent placement for left ureter, stricture. e plan is to reevaluate her later and continue her stent in place. 3. Cholelithiasis, asymptomatic. 4. A 7 mm pulmonary nodule in the right middle lobe, for further investigation with a CT on outpatie nt basis. 5. Prominent atherosclerotic vascular calcification and atherosclerotic plaque in the setting of his tory of coronary artery disease and myocardial infarctions x2. The patient is asymptomatic. She is started on aspirin and Cardiology is obtaining her past medical records. 6. Noncompliance. Apparently, the patient was taking some medications for her heart and she stopped all of them several months ago, so plan is to continue with Zosyn. We are going to start her on a s oft diet today and this will be confirmed with General Surgery. I will start her on Tylenol p.o. 500 mg every 6 hours p.r.n. as needed for the pain since she does not like to take drugs. She will star t physical therapy and will continue DVT prophylaxis.
[2018-04-23] MEDS: Cefdinir 300 MG CAP PO SCH ×2 (09:14→21:00)
[2018-04-23] MEDS: Acetaminophen 500 MG TAB PO PRN (09:15)
[2018-04-23] MEDS: Aspirin 81 mg Enteric Coated Tablet PO SCH (09:15)
--- NOTE | 2018-04-23 16:43 | PRG ---
DATE OF SERVICE: 04/23/2018 SUBJECTIVE: Ms. Santos is doing well today. I am seeing her for Dr. Galvan. The patient is on Omnicef. A CT guided drainage revealed E. coli. Purulent material, 10 mL aspirated and sent for cu lture. In her drainage bag from her drainage catheter is stool appearing material. She denies havin g any pain. She has been advanced to a regular diet. Her white count is diminished. OBJECTIVE: LUNGS: Clear to auscultation. CARDIAC: murmur or gallop. ABDOMEN: Soft, nontender. ASSESSMENT AND PLAN: Diverticulitis with psoas abscess. This has been drained effectively. She zhou s not have any pain. I would recommend a low fiber diet. Continue with MiraLax daily. She should b e on Augmentin twice a day. We will assure that nursing is irrigating her drainage tube twice a day. Patient should be instructed on drain tube care and irrigation. She should follow up with Dr. Allen george next week, and could be discharged home in the next 24-48 hours on oral antibiotics. She may aren yanes help with her CT guided drain tube in, which is a home health nursing could be arranged.
[2018-04-23] MEDS ORDERED: TICAGRELOR 90 MG TABLET PO SCH (17:00)
[2018-04-23] MEDS: HYDROcodone/Acetaminophen 7.5/325 mg Tablet PO PRN ×2 (17:05→21:01)
[2018-04-23] MEDS: Amoxicillin/Potassium Clav 500 MG TAB PO SCH (21:00)
[2018-04-24 05:58] LABS: #Monocytes 1.1 thou/uL (0.11-0.59); #Neutrophils 7.5 thou/uL (1.40-6.50); %Basophils 0.1 % (0.0-1.0); %Eosinophils 0.4 % (0.0-10.0); %Lymphocytes 18.5 % (21.0-51.0); %Monocytes 10.2 % (0.0-10.0); %Neutrophils 70.7 % (42.0-75.0); Hemoglobin 10.2 g/dL (12.0-16.0); Mean Corpuscular HGB CONC 30.2 g/dL (32.0-36.0); Mean Corpuscular Hemoglobin 27.2 pg (27.0-31.0); Mean Corpuscular Volume 89.9 fL (78.0-98.0); Mean Platelet Volume 6.3 fL (7.4-10.4); Platelet Count 472 thou/uL (130-400); Red Blood Cell (RBC) Count 3.77 mill/uL (4.20-5.40); White Blood Cell (WBC) Count 10.6 thou/uL (4.8-10.8)
[2018-04-24 06:09] LABS: Anion Gap 10 mmol/L (10-20); BUN (Urea Nitrogen) 6 mg/dL (9.8-20.1); Calc. Creatinine Clearance 74 mL/min (70-130); Calcium 8.2 mg/dL (7.8-10.44); Carbon Dioxide 26 mmol/L (23-31); Chloride 105 mmol/L (98-107); Estimated GFR-MDRD Greater than 90; Glucose 84 mg/dL (83-110); Potassium 3.4 mmol/L (3.5-5.1); Sodium 138 mmol/L (136-145)
--- NOTE | 2018-04-24 08:16 | PRG ---
DATE OF SERVICE: 04/24/2018 SUBJECTIVE: The patient without complaints, doing well. PHYSICAL EXAMINATION: VITAL SIGNS: Stable. She is afebrile. ABDOMEN: Soft, some tenderness in the left lower quadrant as expected due to pelvic abscess. No rigidity, no rebound. LABORATORY DATA: 1. White blood cell count 10. Renal function stable at 0.55. 2. Repeat urine culture is negative. Prior urine culture demonstrated Escherichia coli. 3. Abdominal aspirate pelvic abscess, E. coli, same sensitivity as urine culture. She is currently on Augmentin and Omnicef. IMPRESSION AND PLAN: 1. Ms. Santos is a 72-year-old female with history of coronary artery disease, presents with sigmoid diverticulitis, complicated by pelvic abscess, iliopsoas abscess. 2. Left hydronephrosis secondary to ureteral stricture; due to significant inflammation phlegmon in the pelvis, status post stent, postop day #3. 3. Positive urine culture. Repeat culture negative. From a urologic perspective, patient can be discharged home. As she is on Augmentin and Omnicef, I will leave antibiotic regimen for General Surgery as there is same sensitivity from pelvic abscess culture as urine culture. From a urologic perspective antibiotics can be discontinued in the next 2-3 days. She has followup appointment with me in chart. She will require restaging retrograde once pelvic abscess has resolved. DORCAS
[2018-04-24] MEDS: Cefdinir 300 MG CAP PO SCH (09:41)
[2018-04-24] MEDS: Amoxicillin/Potassium Clav 500 MG TAB PO SCH (09:42)
[2018-04-24] MEDS: Polyethylene Glycol 3350 17 GM Packet PO SCH (09:42)
[2018-04-24] MEDS: Aspirin 81 mg Enteric Coated Tablet PO SCH (09:42)
[2018-04-24] MEDS: TICAGRELOR 90 MG TABLET PO SCH ×2 (09:43→20:33)
--- NOTE | 2018-04-24 13:31 | CT ---
CT GUIDED LEFT PSOAS AND ILIOPSOAS ABSCESS COLLECTION DRAINAGE: 04/22/18 HISTORY: Fluid and gas collection involving the distal left psoas muscle and extending to the left iliopsoas m uscle. Drainage was requested. TECHNIQUE: The procedure including risks and complications were explained to the patient and informed consent wa s obtained. The patient was placed on the CT scan table in the supine position. Limited noncontrasted CT scan was obtained through the level of the abscess collection with grid localizer in place. An ar ea was marked and then meticulously prepped and draped in the usual sterile fashion. Skin and subcutaneous tissues were infiltrated with buffered 1% lidocaine for local anesthesia. 21 ga uge needle was advanced into the collection and position was confirmed with three axial noncontrasted CT images. The needle was exchanged over a 0.018 inch guide wire for a 5 [place] introducer sheath an d a 0.035 inch Amplatz guide wire was placed. Positioning was confirmed with axial CT images. A small skin incision was made. The introducer sheath was exchanged over the quide wire for an 8 Fren ch tissue dilator followed by placement of an 8 [place] loop drainage catheter. The guide wire wa s removed, and approximately 10 mL of purulent fluid was aspirated. Positioning was evaluated with ax ial noncontrasted CT images. [place] loop portion of the drainage catheter was noted to be within the co llection in the region of the psoas muscle and as the result the catheter was withdrawn. An addition al 20 mL of purulent fluid was aspirated. The catheter was flushed and placed to gravity drainage. The catheter was sutured in place utilizing 2-0 Ethilon suture. A dry sterile dressing was placed. FINDINGS: Technically successful left psoas and iliopsoas abscess drainage with placement of an 8 [place] loop all purpose drainage catheter within the collection. Game Moderator images demonstrate partial visualization of a left ureteral stent. Most proximal portion which is not imaged. Small amount of free fluid is seen in the pelvis. IMPRESSION: Technically successful left psoas/iliopsoas abscess drainage. Specimen was sent for labs.
--- NOTE | 2018-04-24 15:59 | PRG ---
DATE OF SERVICE: 04/24/2018 SUBJECTIVE: The patient is seen and examined at the bedside. She is not having any pain and night w as uneventful. OBJECTIVE: VITAL SIGNS: Blood pressure is 114/73, pulse is 79, respiratory rate is 20, pulse oximetry is 95% on room air, temperature is 98.5, maximal temperature is 98.7. HEENT: Head is atraumatic, normocephalic. Eyes are PERRLA. Sclerae are nonicteric. Oral mucosa is moist. NECK: Supple, no lymphadenopathy. Thyroid is not palpable. LUNGS: Clear, although emphysematous. HEART: S1, S2, somewhat distant. No S3, no S4. ABDOMEN: Soft, nontender, bowel sounds are present, no organomegaly. EXTREMITIES: No clubbing, cyanosis or edema. She has a drain in the left groin draining some yellow tova fluid. NEUROLOGIC: She is alert and oriented x4. There is not any motor or sensory deficits. LABORATORY DATA AND IMAGING: Showed a white count of 10.6, hemoglobin 10.2, hematocrit 33.9, platele t count is 472. Sodium of 130, potassium 3.4, chloride 105, CO2 of 28, BUN 6, creatinine 0.55, calci um 8.2. Microbiology is growing E. coli in urine, which is pansensitive except for Cipro and levoflo xacin. Urine from the 6th is not growing anything. Abdomen aspirate bacterial culture is growing E. coli and alpha hemolytic streptococcus E. coli is sensitive to amikacin, ampicillin/sulbactam, cefoxitin, gentamicin, meropenem and tazobactam along with piperacillin, tobramycin, trimethoprim, s ulfamethoxazole IMPRESSION: 1. Iliopsoas abscesses secondary to diverticulitis, status post drainage. The patient was switched to Omnicef and Augmentin was added by Dr. Valera yesterday and Zosyn was stopped by Dr. Monreal. She is growing E. coli, which is quite resistant to many pathogens and will most likely have to send her to the skilled unit for IV antibiotics and most likely this is going to be meropenem. 2. Left hydronephrosis with hydroureter, status post stent placement for left ureteral stricture. 3. Cholelithiasis, asymptomatic. 4. A 5 mm pulmonary nodule in the right middle lobe for further evaluation with a CT scan on outpati ent basis. Prominent atherosclerotic vascular calcification, atherosclerotic plaque in the setting o f history of coronary artery disease and myocardial infarction x2. According to the recommendation, she had stent placed, so Cardiology be starting her on anticoagulant. 5. Noncompliance. PLAN: Make some adjustment to the antibiotic and send her to skilled unit for PT, OT, and IV antibio tics.
[2018-04-24] MEDS: HYDROcodone/Acetaminophen 7.5/325 mg Tablet PO PRN ×2 (18:22→23:09)
[2018-04-24] MEDS: MEROPENEM 1 GM/50 ML 1 GM in Premix Bag 1 BAG IVPB SCH (20:33)
[2018-04-25] MEDS: MEROPENEM 1 GM/50 ML 1 GM in Premix Bag 1 BAG IVPB SCH ×3 (05:24→20:11)
[2018-04-25] MEDS: HYDROcodone/Acetaminophen 7.5/325 mg Tablet PO PRN ×2 (05:33→17:27)
[2018-04-25] MEDS: Aspirin 81 mg Enteric Coated Tablet PO SCH (10:44)
[2018-04-25] MEDS: TICAGRELOR 90 MG TABLET PO SCH ×2 (10:45→20:10)
[2018-04-25] MEDS: Polyethylene Glycol 3350 17 GM Packet PO SCH (10:45)
--- NOTE | 2018-04-25 12:55 | PDOC.PN ---
- Subjective Encounter Start Date: 04/25/18 Encounter Start Time: 10:45 Subjective: no abd pain or sob -: feels weak, is amb in room - Objective MAR Reviewed: Yes Vital Signs & Weight: Vital Signs (12 hours) Temp Pulse Resp BP Pulse Ox 04/25/18 11:09 97.8 F 88 18 100/65 97 04/25/18 07:18 98.2 F 74 16 106/67 94 L 04/25/18 04:01 98.6 F 74 20 94/57 L 95 Weight Weight 109 lb 12.8 oz I&O: 04/24/18 04/25/18 04/26/18 06:59 06:59 06:59 Intake Total 1050 600 Output Total 1105 600 Balance -55 0 Result Diagrams: 04/24/18 04:44 04/24/18 04:44 Phys Exam - Physical Examination HEENT: PERRLA, moist MMs Neck: no JVD, supple Respiratory: no wheezing, no rales Cardiovascular: RRR, no significant murmur Gastrointestinal: soft, positive bowel sounds percut drain has purulent/stool in it Musculoskeletal: no edema, pulses present Neurological: non-focal, moves all 4 limbs Psychiatric: normal affect, A&O x 3 Dx/Plan (1) Sigmoid diverticulitis Code(s): K57.32 - DVTRCLI OF LG INT W/O PERFORATION OR ABSCESS W/O BLEEDING Status: Acute (2) Pelvic abscess Code(s): XNG1770 - Status: Acute Comment: sec to above (3) CAD (coronary artery disease) Code(s): I25.10 - ATHSCL HEART DISEASE OF [place] CORONARY ARTERY W/O ANG PCTRS Status: Chronic Qualifiers: Coronary Disease-Associated Artery/Lesion type: [place] artery [place] vs. transplanted heart: [place] heart Associated angina: without angina Qualified Code(s): I25.10 - Atherosclerotic heart disease of [place] coronary artery without angina pectoris (4) Hydronephrosis Code(s): N13.30 - UNSPECIFIED HYDRONEPHROSIS Status: Acute Comment: s/p stent to left ureter sec to pelvic abscess/obstr uropathy (5) UTI (urinary tract infection) Status: Acute Qualifiers: Urinary tract infection type: acute cystitis Hematuria presence: without hematuria Qualified Code(s): N30.00 - Acute cystitis without hematuria - Plan is on meropenem -: plan is for oral augmentin and omnicef per surgeons -: is still draining a lot from her percut drain -: to amb as tolerated -: is on asp and brilinta, azo, oxybutynin and norco prn * . Review of Systems - Medications/Allergies Allergies/Adverse Reactions: Allergies Allergy/AdvReac Type Severity Reaction Status Date / Time No Known Allergies Allergy Unverified 04/20/18 22:49 Medications: Current Medications Acetaminophen (Tylenol) 500 mg PO Q6H PRN PRN Reason: Mild Pain (1-3) Last Admin: 04/23/18 09:15 Dose: 500 mg Hydrocodone Bitart/Acetaminophen ([place] 7.5/325) 1 tab PO Q4H PRN PRN Reason: Moderate Pain (4-6) Last Admin: 04/25/18 05:33 Dose: 1 tab Hydrocodone Bitart/Acetaminophen ([place] 7.5/325) 2 tab PO Q4H PRN PRN Reason: Severe Pain (7-10) Aspirin (Ecotrin) 81 mg PO DAILY [facility] Last Admin: 04/25/18 10:44 Dose: 81 mg Meropenem 1 gm/ Device 50 mls @ 100 mls/hr IVPB 0400,1200,2000 [facility] Last Admin: 04/25/18 05:24 Dose: 50 mls Oxybutynin Chloride (Ditropan) 5 mg PO Q8H PRN PRN Reason: Bladder Spasms Last Admin: 04/23/18 12:05 Dose: 5 mg Phenazopyridine HCl (Azo Standard) 97.5 mg PO Q8H PRN PRN Reason: dysuria Polyethylene Glycol (Miralax) 17 gm PO DAILY [facility] Last Admin: 04/25/18 10:45 Dose: Not Given Sodium Chloride (Flush - Normal Saline) 10 ml IVF Q12HR [facility] Last Admin: 04/24/18 20:34 Dose: 10 ml Sodium Chloride (Flush - Normal Saline) 10 ml IVF PRN PRN PRN Reason: Saline Flush Sodium Chloride (Flush - Normal Saline) 10 ml IVF PRN PRN PRN Reason: Saline Flush Ticagrelor (Brilinta) 90 mg PO BID [facility] Last Admin: 04/25/18 10:45 Dose: 90 mg
[2018-04-25] MEDS: Acetaminophen 500 MG TAB PO PRN (20:10)
--- NOTE | 2018-04-25 21:26 | CON ---
DATE OF CONSULTATION: 04/25/2018 REASON FOR CONSULTATION: Psoas abscess. HISTORY OF PRESENT ILLNESS: A 72-year-old patient who has a history of recurrent diverticulitis, coronary artery disease, previous NV, who has had worsening symptoms in the left lower quadrant and pain on ambulation left lower extremity. The patient reportedly went to her doctor in [place] and he did not think that she had any infection. She decided to come here, she has been admitted and CT scan showed psoas abscess resulting from complications of her diverticulitis. Dr. Galvan has been consulted and recommended percutaneous aspirate which has been accomplished. Cultures have been resulted in which the results are discussed below. She is having improvement in the left groin pain and it is still moderate. She has a percutaneous drainage in place with purulent drainage. She denies any headaches, no visual symptoms, sore throat, odynophagia, dysphagia, no cough or sputum production or chest pain, no abdominal pain or diarrhea. No genitourinary symptoms. No other joint symptoms. PAST MEDICAL HISTORY: Diverticulitis, coronary artery disease, myocardial infarction. PAST SURGICAL HISTORY: Shoulder rotator cuff repair, breast implants, some abdominal surgery in the past. CURRENT MEDICATIONS: Tylenol, [place], Ecotrin, meropenem, oxybutynin, Marlex, IV fluids, Brilinta. FAMILY HISTORY: Lung cancer. SOCIAL HISTORY: Former smoker, quit recently. Does not drink. She had been living in [place]. PHYSICAL EXAMINATION: VITAL SIGNS: Within normal limits. She has been afebrile since admission. SKIN: Shows a percutaneous drainage in the left lower quadrant, purulent drainage. Peripheral IV access. No lymphadenopathy. HEENT: Ocular movements conjugate. Oral cavity normal. NECK: Supple. LUNGS: Clear to auscultation and percussion. HEART: S1, S2, regular rate. No S3 or S4. ABDOMEN: Soft, not distended or tender. There is tenderness on range of motion of left hip and on palpation of the left groin. EXTREMITIES: Pulses are 1+ in dorsalis pedis. No edema. She is able to move extremities with limitations imposed by the left psoas muscle abscess. NEUROLOGIC: Cognitive function appears to be intact. LABORATORY DATA AND IMAGING DATA: White cell count of 13,000 down to 10.6, hemoglobin 10.2, platelets 472, 70% neutrophils. INR 1.3. Sodium 138, creatinine 0.55. Liver profile normal. Albumin 2.6 and globulin 3.6. Urinalysis, 4-6 wbc's. Microbiology from the aspirate showed E. coli and Streptococcus constellates, urine culture with E. coli. The abdominal aspirate E. coli has ESBL pattern and Streptococcus constellates is intermediate to cefotaxime, erythromycin, resistant to clindamycin, tetracycline and penicillin intermediate. Reports include abdomen and pelvis CT which showed a prominent inflammatory change in left hemipelvis with psoas and iliopsoas abscess collection. Also, a small abscess collection involving the left lateral wall of the sigmoid colon. There is evidence of left hydronephrosis and hydroureter , possible early ileus small pulmonary nodule. Patient had a retrograde pyelogram done and it showed marked focal area of narrowing involving the left ureter approximately the inferior left sacral ala region. A left ureteral stent was placed. ASSESSMENT: 1. History of coronary artery disease. 2. History of recurrent diverticulitis. 3. Diverticulitis with left psoas muscle abscess and kidney outflow tract obstruction managed with stenting. DISCUSSION: Patient has a not very common complication of diverticulitis and she will be managed conservatively with percutaneous drainage and IV antimicrobial administration geared towards the organisms retrieved with meropenem. The patient can be transitioned to Invanz for d/c planning eventually. We will continue meropenem/invanz in the outpatient setting. We will need a PICC line placement. The duration of therapy will probably at least 4 weeks. We will follow up imaging studies. Drainage of the psoas abscess to be monitored with also CT scan and discontinue the drainage according to the radiological response. Eventually, she probably will need resection of the involved segment of colon once the inflammatory process receives. Complications of placing a PICC line and on antimicrobial therapy have discussed with the patient and family members and they agreed with management recommendations. DORCAS
[2018-04-26] MEDS: MEROPENEM 1 GM/50 ML 1 GM in Premix Bag 1 BAG IVPB SCH ×3 (03:04→20:05)
[2018-04-26] MEDS: HYDROcodone/Acetaminophen 7.5/325 mg Tablet PO PRN ×2 (03:06→08:20)
[2018-04-26] MEDS: Aspirin 81 mg Enteric Coated Tablet PO SCH (08:20)
[2018-04-26] MEDS: Polyethylene Glycol 3350 17 GM Packet PO SCH (08:20)
[2018-04-26] MEDS: TICAGRELOR 90 MG TABLET PO SCH ×2 (08:20→20:06)
--- NOTE | 2018-04-26 10:28 | PDOC.PN ---
- Subjective Encounter Start Date: 04/26/18 Encounter Start Time: 08:45 Subjective: abd pain is better, is amb in room -: no sob - Objective MAR Reviewed: Yes Vital Signs & Weight: Vital Signs (12 hours) Temp Pulse Resp BP Pulse Ox 04/26/18 07:29 98.4 F 76 20 99/70 96 04/26/18 03:57 98 F 81 18 114/79 97 04/26/18 00:00 98.2 F 67 16 130/83 95 Weight Weight 109 lb 12.8 oz I&O: 04/25/18 04/26/18 04/27/18 06:59 06:59 06:59 Intake Total 600 500 Output Total 600 70 Balance 0 430 Result Diagrams: 04/24/18 04:44 04/24/18 04:44 Phys Exam - Physical Examination HEENT: PERRLA, moist MMs Neck: no JVD, supple Respiratory: no wheezing, no rales Cardiovascular: RRR, no significant murmur Gastrointestinal: soft, no distention, positive bowel sounds per cut drain has purulent material Musculoskeletal: no edema, pulses present Neurological: non-focal, moves all 4 limbs Dx/Plan (1) Sigmoid diverticulitis Code(s): K57.32 - DVTRCLI OF [place] INT W/O PERFORATION OR ABSCESS W/O BLEEDING Status: Acute (2) Pelvic abscess Code(s): [id number] - Status: Acute Comment: sec to above (3) CAD (coronary artery disease) Code(s): I25.10 - ATHSCL HEART DISEASE OF [place] CORONARY ARTERY W/O ANG PCTRS Status: Chronic Qualifiers: Coronary Disease-Associated Artery/Lesion type: [place] artery [place] vs. transplanted heart: [place] heart Associated angina: without angina Qualified Code(s): I25.10 - Atherosclerotic heart disease of [place] coronary artery without angina pectoris (4) Hydronephrosis Code(s): N13.30 - UNSPECIFIED HYDRONEPHROSIS Status: Acute Comment: s/p stent to left ureter sec to pelvic abscess/obstr uropathy (5) UTI (urinary tract infection) Status: Acute Qualifiers: Urinary tract infection type: acute cystitis Hematuria presence: without hematuria Qualified Code(s): N30.00 - Acute cystitis without hematuria - Plan is on meropenem -: awaiting placement -: needs invanz to be set up at swing bed -: picc line in am -: on asp, brilinta, oxybutynin and azo. [place] prn * . Review of Systems - Medications/Allergies Allergies/Adverse Reactions: Allergies Allergy/AdvReac Type Severity Reaction Status Date / Time No Known Allergies Allergy Unverified 04/20/18 22:49 Medications: Current Medications Acetaminophen (Tylenol) 500 mg PO Q6H PRN PRN Reason: Mild Pain (1-3) Last Admin: 04/25/18 20:10 Dose: 500 mg Hydrocodone Bitart/Acetaminophen ([place] 7.5/325) 1 tab PO Q4H PRN PRN Reason: Moderate Pain (4-6) Last Admin: 04/26/18 08:20 Dose: 1 tab Hydrocodone Bitart/Acetaminophen ([place] 7.5/325) 2 tab PO Q4H PRN PRN Reason: Severe Pain (7-10) Aspirin (Ecotrin) 81 mg PO DAILY [facility] Last Admin: 04/26/18 08:20 Dose: 81 mg Meropenem 1 gm/ Device 50 mls @ 100 mls/hr IVPB 0400,1200,2000 [facility] Last Admin: 04/26/18 03:04 Dose: 50 mls Oxybutynin Chloride (Ditropan) 5 mg PO Q8H PRN PRN Reason: Bladder Spasms Last Admin: 04/23/18 12:05 Dose: 5 mg Phenazopyridine HCl (Azo Standard) 97.5 mg PO Q8H PRN PRN Reason: dysuria Polyethylene Glycol (Miralax) 17 gm PO DAILY [facility] Last Admin: 04/26/18 08:20 Dose: Not Given Sodium Chloride (Flush - Normal Saline) 10 ml IVF Q12HR [facility] Last Admin: 04/26/18 08:21 Dose: 10 ml Sodium Chloride (Flush - Normal Saline) 10 ml IVF PRN PRN PRN Reason: Saline Flush Sodium Chloride (Flush - Normal Saline) 10 ml IVF PRN PRN PRN Reason: Saline Flush Ticagrelor (Brilinta) 90 mg PO BID [facility] Last Admin: 04/26/18 08:20 Dose: 90 mg
[2018-04-27] MEDS: HYDROcodone/Acetaminophen 7.5/325 mg Tablet PO PRN ×6 (01:50→22:19)
[2018-04-27] MEDS: MEROPENEM 1 GM/50 ML 1 GM in Premix Bag 1 BAG IVPB SCH ×3 (03:56→20:07)
[2018-04-27] MEDS: Polyethylene Glycol 3350 17 GM Packet PO SCH (08:07)
[2018-04-27] MEDS: TICAGRELOR 90 MG TABLET PO SCH ×2 (08:15→20:09)
[2018-04-27] MEDS: Aspirin 81 mg Enteric Coated Tablet PO SCH (08:15)
--- NOTE | 2018-04-27 10:32 | PDOC.PN ---
- Subjective Encounter Start Date: 04/27/18 Encounter Start Time: 10:15 Subjective: no sob or pain -: is amb in hallway per patient - Objective MAR Reviewed: Yes Vital Signs & Weight: Vital Signs (12 hours) Temp Pulse Resp BP Pulse Ox 04/27/18 08:00 98.3 F 63 15 148/97 H 96 04/27/18 04:00 98.5 F 88 18 108/70 95 04/26/18 23:55 99.2 F 78 20 133/82 97 04/26/18 23:18 96 Weight Weight 109 lb 12.8 oz I&O: 04/26/18 04/27/18 04/28/18 06:59 06:59 06:59 Intake Total 500 1730 Output Total 70 90 Balance 430 1640 Result Diagrams: 04/24/18 04:44 04/24/18 04:44 Phys Exam - Physical Examination HEENT: PERRLA, moist MMs Neck: no JVD, supple Respiratory: no wheezing, no rales Cardiovascular: RRR, no significant murmur Gastrointestinal: soft, no distention, positive bowel sounds percut drain has purulent material Musculoskeletal: no edema, pulses present Neurological: non-focal, moves all 4 limbs Psychiatric: A&O x 3 Dx/Plan (1) Sigmoid diverticulitis Code(s): K57.32 - DVTRCLI OF LG INT W/O PERFORATION OR ABSCESS W/O BLEEDING Status: Acute Comment: s/p perc drain (2) Pelvic abscess Code(s): [id number] - Status: Acute Comment: sec to above (3) CAD (coronary artery disease) Code(s): I25.10 - ATHSCL HEART DISEASE OF [place] CORONARY ARTERY W/O ANG PCTRS Status: Chronic Qualifiers: Coronary Disease-Associated Artery/Lesion type: [place] artery [place] vs. transplanted heart: [place] heart Associated angina: without angina Qualified Code(s): I25.10 - Atherosclerotic heart disease of [place] coronary artery without angina pectoris (4) Hydronephrosis Code(s): N13.30 - UNSPECIFIED HYDRONEPHROSIS Status: Acute Comment: s/p stent to left ureter sec to pelvic abscess/obstr uropathy (5) UTI (urinary tract infection) Status: Acute Qualifiers: Urinary tract infection type: acute cystitis Hematuria presence: without hematuria Qualified Code(s): N30.00 - Acute cystitis without hematuria - Plan awaiting placement and arrangement of iv invanz -: for picc line today -: outpt imaging and duration of perc tube will be decided by surgery -: on meropenem, asp, brilinta, norco prn -: likely has underlying dementia/cognitive dysfunction * . Review of Systems - Medications/Allergies Allergies/Adverse Reactions: Allergies Allergy/AdvReac Type Severity Reaction Status Date / Time No Known Allergies Allergy Unverified 04/20/18 22:49 Medications: Current Medications Acetaminophen (Tylenol) 500 mg PO Q6H PRN PRN Reason: Mild Pain (1-3) Last Admin: 04/25/18 20:10 Dose: 500 mg Hydrocodone Bitart/Acetaminophen ([place] 7.5/325) 1 tab PO Q4H PRN PRN Reason: Moderate Pain (4-6) Last Admin: 04/27/18 05:53 Dose: 1 tab Hydrocodone Bitart/Acetaminophen ([place] 7.5/325) 2 tab PO Q4H PRN PRN Reason: Severe Pain (7-10) Last Admin: 04/27/18 09:55 Dose: 2 tab Aspirin (Ecotrin) 81 mg PO DAILY [facility] Last Admin: 04/27/18 08:15 Dose: Not Given Meropenem 1 gm/ Device 50 mls @ 100 mls/hr IVPB 0400,1200,2000 [facility] Last Admin: 04/27/18 03:56 Dose: 50 mls Oxybutynin Chloride (Ditropan) 5 mg PO Q8H PRN PRN Reason: Bladder Spasms Last Admin: 04/23/18 12:05 Dose: 5 mg Phenazopyridine HCl (Azo Standard) 97.5 mg PO Q8H PRN PRN Reason: dysuria Polyethylene Glycol (Miralax) 17 gm PO DAILY [facility] Last Admin: 04/27/18 08:07 Dose: 17 gm Sodium Chloride (Flush - Normal Saline) 10 ml IVF Q12HR [facility] Last Admin: 04/27/18 08:15 Dose: 10 ml Sodium Chloride (Flush - Normal Saline) 10 ml IVF PRN PRN PRN Reason: Saline Flush Sodium Chloride (Flush - Normal Saline) 10 ml IVF PRN PRN PRN Reason: Saline Flush Ticagrelor (Brilinta) 90 mg PO BID [facility] Last Admin: 04/27/18 08:15 Dose: Not Given
--- NOTE | 2018-04-27 13:42 | SPC ---
ULTRASOUND-GUIDED LEFT UPPER EXTREMITY PICC LINE PLACEMENT: HISTORY: Infection. COMPARISON: None. EXPOSURE: 5 minutes 1852 mGy per cm2 FINDINGS: Successful left upper extremity PICC line placement with ultrasound guidance. There is a 41 cm singl e-lumen 5 Swiss catheter with the distal tip in the superior vena cava. The catheter flushes and as pirates without difficulty. TECHNIQUE: Consent obtained to perform an ultrasound-guided right upper extremity PICC line. the right arm was prepped and draped in a sterile fashion. Lidocaine 1% buffered with sodium bicarbonate was used for local anesthesia. Under ultrasound guidance, a micropuncture needle was used to cannulate the brachi al vein. A 0.018 guidewire was advanced through the needle, to the level of the superior vena cava. Under fluoroscopy, the wire was advanced into the inferior vena cava, to document venous access. Th e wire was subsequently pulled back to the superior vena cava. The tract was dilated. A single-lume n 5 Swiss catheter was advanced over the wire. The wire was removed. Trim length was 41 cm. The c atheter flushed and aspirated without difficulty. IMPRESSION: Successful left upper extremity peripherally inserted central catheter line placement with ultrasound guidance. POS: [facility]
--- NOTE | 2018-04-27 19:08 | PRG ---
DATE OF SERVICE: 04/27/2018 SUBJECTIVE: Feeling well. No pain in the abdominal area. No respiratory symptoms, no diarrhea. PHYSICAL EXAMINATION: VITAL SIGNS: T-max 99.2, BP nl, pulse 63, respirations 16, O2 sat 96%. SKIN: Not remarkable. She has a percutaneous drainage tube with quite prominent drainage, still a PICC line in left upper extremity. HEENT: Noncontributory. LUNGS: Clear. HEART: S1, S2, regular rate. No S3, S4. ABDOMEN: Soft with mild tenderness, left lower quadrant. NEUROLOGIC: Nonfocal. LABORATORY DATA: White cell count 10.6, hemoglobin 10.2, platelets 472. Sodium 138, creatinine 0.55. Liver profile normal. Albumin 2.6. Microbiology with E. coli and Streptococcus constellates/constellates E. coli with resistance to quinolones. ASSESSMENT AND DISCUSSION: Coronary artery disease with recurrent diverticulitis and now complication of left psoas muscle abscess and kidney outflow tract obstruction managed with stenting. Patient to continue on IV meropenem. PICC line has been placed at least with 4 weeks of therapy. Follow up CT scan in 2-3 weeks and hopefully then discontinue the drainage. After completion of IV phase of therapy, transitioned to oral antimicrobial therapy potentially with Bactrim and Augmentin. She probably will have to complete the entire course of therapy anywhere from 4-6 weeks with IV meropenem. DOR[facility]
[2018-04-28] MEDS: MEROPENEM 1 GM/50 ML 1 GM in Premix Bag 1 BAG IVPB SCH ×3 (02:52→21:13)
[2018-04-28] MEDS: HYDROcodone/Acetaminophen 7.5/325 mg Tablet PO PRN ×5 (03:09→21:13)
[2018-04-28 05:23] LABS: #Eosinphils 0.2 thou/uL (0.0-0.7); #Lymphocytes 2.1 thou/uL (1.20-3.40); #Monocytes 0.9 thou/uL (0.11-0.59); %Basophils 0.4 % (0.0-1.0); %Eosinophils 1.7 % (0.0-10.0); %Lymphocytes 22.3 % (21.0-51.0); %Monocytes 9.8 % (0.0-10.0); %Neutrophils 65.8 % (42.0-75.0); Hemoglobin 10.6 g/dL (12.0-16.0); Mean Corpuscular HGB CONC 30.2 g/dL (32.0-36.0); Mean Corpuscular Hemoglobin 27.6 pg (27.0-31.0); Mean Corpuscular Volume 91.4 fL (78.0-98.0); Mean Platelet Volume 5.9 fL (7.4-10.4); Platelet Count 518 thou/uL (130-400); RBC Distribution Width 13.6 % (11.5-14.5); Red Blood Cell (RBC) Count 3.84 mill/uL (4.20-5.40); White Blood Cell (WBC) Count 9.2 thou/uL (4.8-10.8)
[2018-04-28 05:39] LABS: ALT (SGPT) 10 U/L (8-55); AST (SGOT) 12 U/L (5-34); Albumin 2.7 g/dL (3.4-4.8); Alkaline Phosphatase 62 U/L (40-150); Anion Gap 11 mmol/L (10-20); BUN (Urea Nitrogen) 10 mg/dL (9.8-20.1); Bilirubin, Total 0.4 mg/dL (0.2-1.2); Calc. Creatinine Clearance 77 mL/min (70-130); Calcium 8.6 mg/dL (7.8-10.44); Carbon Dioxide 26 mmol/L (23-31); Chloride 107 mmol/L (98-107); Estimated GFR-MDRD Greater than 90; Globulin 3.3 g/dL (2.4-3.5); Glucose 85 mg/dL (83-110); Potassium 3.9 mmol/L (3.5-5.1); Sodium 140 mmol/L (136-145)
[2018-04-28] MEDS: Aspirin 81 mg Enteric Coated Tablet PO SCH (08:26)
[2018-04-28] MEDS: Polyethylene Glycol 3350 17 GM Packet PO SCH (08:26)
[2018-04-28] MEDS: TICAGRELOR 90 MG TABLET PO SCH ×2 (08:26→21:12)
--- NOTE | 2018-04-28 11:06 | RAD ---
ABDOMEN TWO VIEWS: HISTORY: Abdominal pain. Flank pain. Bloating. COMPARISON: None. FINDINGS: Nonspecific bowel gas pattern. There is a mild amount of fecal material throughout the colon. No bajwa spicious densities in the abdomen or pelvis. No pneumoperitoneum. A left-sided double-J ureteral stent is noted and is appropriately positioned. There is a pigtail ca theter in the left hemipelvis. IMPRESSION: 1. Nonspecific bowel gas pattern. 2. Drainage catheter and stent, as above. POS: [facility] [place]
[2018-04-28] MEDS: Magnesium Citrate 300 ML BOT PO SCH ×2 (11:15→18:40)
--- NOTE | 2018-04-28 12:43 | PDOC.PN ---
- Subjective Encounter Start Date: 04/28/18 Encounter Start Time: 12:40 - Objective Vital Signs & Weight: Vital Signs (12 hours) Temp Pulse Resp BP Pulse Ox 04/28/18 11:29 98.2 F 82 14 109/66 04/28/18 08:24 94 L 04/28/18 07:33 97.9 F 85 16 131/93 H 94 L 04/28/18 04:24 98.3 F 75 20 111/75 95 Weight Weight 109 lb 12.8 oz I&O: 04/27/18 04/28/18 04/29/18 06:59 06:59 06:59 Intake Total 1730 1810 Output Total 90 40 Balance 1640 1770 Result Diagrams: 04/28/18 04:16 04/28/18 04:16 Dx/Plan (1) Pelvic abscess Code(s): [id number] - Status: Acute Comment: Iliopsoas abscess as a complication of sigmoid diverticulitis, S/P drain. Continue merrem. Switch to Invanz at [place]? Awaiting PICC and make arrangements for IV abx. Abd abscess cx growing ecoli and Sterp Constellatus (2) Sigmoid diverticulitis Code(s): K57.32 - DVTRCLI OF LG INT W/O PERFORATION OR ABSCESS W/O BLEEDING Status: Acute Comment: sEE Above (3) Hydronephrosis Code(s): N13.30 - UNSPECIFIED HYDRONEPHROSIS Status: Acute Qualifiers: Hydronephrosis type: other Qualified Code(s): N13.39 - Other hydronephrosis Comment: s/p stent to left ureter sec to pelvic abscess/obstr uropathy (4) UTI (urinary tract infection) Status: Acute Qualifiers: Urinary tract infection type: acute cystitis Hematuria presence: without hematuria Qualified Code(s): N30.00 - Acute cystitis without hematuria Comment: Urine cx positive for ecoli (5) CAD (coronary artery disease) Code(s): I25.10 - ATHSCL HEART DISEASE OF [place] CORONARY ARTERY W/O ANG PCTRS Status: Chronic Qualifiers: Coronary Disease-Associated Artery/Lesion type: [place] artery [place] vs. transplanted heart: [place] heart Associated angina: without angina Qualified Code(s): I25.10 - Atherosclerotic heart disease of [place] coronary artery without angina pectoris Comment: Aspirin - Plan cont current plan of care, plan discussed w/ family, continue antibiotics, DVT proph w/SCDs Patient on Brillinta * .
[2018-04-28] MEDS ORDERED: Ondansetron PF 4 MG/2 ML Vial SLOW IVP PRN (18:49)
[2018-04-29] MEDS: HYDROcodone/Acetaminophen 7.5/325 mg Tablet PO PRN (03:58)
[2018-04-29] MEDS: MEROPENEM 1 GM/50 ML 1 GM in Premix Bag 1 BAG IVPB SCH ×3 (03:59→20:35)
[2018-04-29] MEDS: TICAGRELOR 90 MG TABLET PO SCH ×2 (08:49→19:37)
[2018-04-29] MEDS: Aspirin 81 mg Enteric Coated Tablet PO SCH (08:49)
[2018-04-29] MEDS: Docusate 100 MG CAP PO SCH ×2 (08:53→19:37)
[2018-04-29] MEDS: Polyethylene Glycol 3350 17 GM Packet PO SCH ×2 (08:53→19:36)
[2018-04-29] MEDS: HYDROcodone/Acetaminophen 5/325 mg Tablet PO PRN ×2 (14:01→19:37)
--- NOTE | 2018-04-29 14:28 | PDOC.PN ---
- Subjective Encounter Start Date: 04/29/18 Encounter Start Time: 14:27 Subjective: waiting for discharge with IV abx. - Objective MAR Reviewed: Yes Vital Signs & Weight: Vital Signs (12 hours) Temp Pulse Resp BP Pulse Ox 04/29/18 11:26 98.0 F 76 18 105/70 96 04/29/18 08:00 98.3 F 75 20 106/60 95 04/29/18 04:48 98.2 F 75 22 H 113/66 98 Weight Weight 109 lb 12.8 oz I&O: 04/28/18 04/29/18 04/30/18 06:59 06:59 06:59 Intake Total 1810 2340 Output Total 40 35 Balance 1770 2305 Result Diagrams: 04/28/18 04:16 04/28/18 04:16 Phys Exam - Physical Examination HEENT: PERRLA, moist MMs, sclera anicteric, TM's clear, oral pharynx no lesions , 2+ tonsils Neck: no nodes, no JVD, supple, full ROM Respiratory: no wheezing, no rales, no rhonchi Cardiovascular: RRR, no significant murmur, no rub Gastrointestinal: soft, non-tender, no distention, positive bowel sounds Musculoskeletal: pulses present, edema present right groin drain in place Neurological: non-focal, normal sensation, moves all 4 limbs Dx/Plan (1) Pelvic abscess Code(s): [id number] - Status: Acute Comment: Iliopsoas abscess as a complication of sigmoid diverticulitis, S/P drain. Continue merrem. Switch to Invanz at [place]? S/P PICC and make arrangements for IV abx. Abd abscess cx growing ecoli and Sterp Constellatus (2) Sigmoid diverticulitis Code(s): K57.32 - DVTRCLI OF [place] INT W/O PERFORATION OR ABSCESS W/O BLEEDING Status: Acute Comment: sEE Above (3) Hydronephrosis Code(s): N13.30 - UNSPECIFIED HYDRONEPHROSIS Status: Acute Qualifiers: Hydronephrosis type: other Qualified Code(s): N13.39 - Other hydronephrosis Comment: s/p stent to left ureter sec to pelvic abscess/obstr uropathy (4) UTI (urinary tract infection) Status: Acute Qualifiers: Urinary tract infection type: acute cystitis Hematuria presence: without hematuria Qualified Code(s): N30.00 - Acute cystitis without hematuria Comment: Urine cx positive for ecoli (5) CAD (coronary artery disease) Code(s): I25.10 - ATHSCL HEART DISEASE OF [place] CORONARY ARTERY W/O ANG PCTRS Status: Chronic Qualifiers: Coronary Disease-Associated Artery/Lesion type: [place] artery [place] vs. transplanted heart: [place] heart Associated angina: without angina Qualified Code(s): I25.10 - Atherosclerotic heart disease of [place] coronary artery without angina pectoris Comment: Aspirin - Plan * .
[2018-04-29 16:59] VITALS: BP 98/64; TEMP 98.8
--- NOTE | 2018-04-30 03:55 | DIS ---
DATE OF ADMISSION: 04/20/2018 DATE OF DISCHARGE: 04/29/2018 ADMISSION DIAGNOSES: 1. Sigmoid diverticulitis. 2. Pelvic abscess. 3. Coronary artery disease. 4. Hydronephrosis. 5. Urinary tract infection. DISCHARGE DIAGNOSES: 1. Sigmoid diverticulitis. 2. Pelvic abscess growing Escherichia coli. 3. Coronary artery disease. 4. Hydronephrosis. 5. Urinary tract infection due to Escherichia coli. HISTORY OF PRESENTING ILLNESS AND HOSPITAL COURSE: Ms. Santos is a 72-year-old, female , who came to the ER with significant abdominal pain. Patient had a known history of diverticulosis and diverticulitis. She complained of the left groin pain, which was very severe and that was gettin g worse as she walked. 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 The patient was admitted with impression of diverticulosis and diverticulitis, and fur ther radiology evaluation of abdomen and pelvis with a CT scan showed prominent inflammatory changes in the left hemipelvic psoas abscess collection. Next, it also showed left hydronephrosis and hydroureter. The patient was then treated with a left iliopsoas G-tube drain. PREOPERATIVE DIAGNOSES: Patient's preoperative diagnosis was: 1. Left pelvic abscess, iliopsoas abscess, and phlegmon due to diverticulitis, possible colon mass. 2. Left hydronephrosis secondary to the above. POSTOPERATIVE DIAGNOSES: Patient's postoperative diagnosis was: 1. Left pelvic abscess, iliopsoas abscess, and phlegmon due to diverticulitis, possible colon mass. 2. Left hydronephrosis secondary to the above. The patient underwent cystoscopy, left retrograde, double-J ureteral stent. The patient subsequently did well with the drainage of the abscess. The wound cultures grew E. coli and Streptococcus conste llatus. The patient was treated with IV antibiotics, and a PICC line was placed for a total of 6 wee ks of IV antibiotics. The patient was discharged with G-tube intact with an instruction to follow up with the surgeon for discontinuation of the G-tube. DISCHARGE INSTRUCTIONS: 1. The patient was discharged with IV antibiotics. Initially, she was treated here on meropenem and discharged with meropenem or Invanz. 2. G-tube was left intact in her left groin to continue to drain the abscess. 3. Please follow up with the surgeon in a week. 4. Activity: As tolerated. 5. Continue with IV antibiotics for the next 3 weeks. 6. PICC line to be discontinued upon discharge from the rehab or the skill that she has gone to.
[2018-05-01] MEDS ORDERED: Heparin 1,000 UNITS/ML VIAL ONE (14:23)
== END 2018-04-29 21:30 | DRG 988 ==
LOC: ERS 13:49 → SURG A 22:07
PROVIDERS: ADMIT Internal Medicine; ATTEND Internal Medicine
PROC: 0T778DZ Dilation of Left Ureter with Intraluminal Device, Via Natural or Artificial Opening Endoscopic (ICD-10-PCS; principal; 2018-04-21)
PROC: 0K9P30Z Drainage of Left Hip Muscle with Drainage Device, Percutaneous Approach (ICD-10-PCS; 2018-04-22)
PROC: 02HV33Z Insertion of Infusion Device into Superior Vena Cava, Percutaneous Approach (ICD-10-PCS; 2018-04-27)
DX: K57.20 Diverticulitis of large intestine with perforation and abscess without bleeding (principal); N13.1 Hydronephrosis with ureteral stricture, not elsewhere classified; M60.08 Infective myositis, other site; E46 Unspecified protein-calorie malnutrition; Z68.1 Body mass index [BMI] 19.9 or less, adult; N30.00 Acute cystitis without hematuria; B96.20 Unspecified Escherichia coli [E. coli] as the cause of diseases classified elsewhere; B95.4 Other streptococcus as the cause of diseases classified elsewhere; I25.10 Atherosclerotic heart disease of native coronary artery without angina pectoris; I25.2 Old myocardial infarction; R91.1 Solitary pulmonary nodule; K59.09 Other constipation; K80.80 Other cholelithiasis without obstruction; Z16.24 Resistance to multiple antibiotics; Z87.891 Personal history of nicotine dependence; Z91.14 Patient's other noncompliance with medication regimen
CPT/HCPCS: 36415; 36569; 49020; 74019; 74177; 74420; 77002; 80048; 80053; 81001; 81003; 81015; 83605; 83690; 85025; 85610; 85730; 87070; 87077; 87086; 87186; 87205; 93005; 93010; 93306; 96361; 96365; 96366; 96368; 96375; 96376; C1729; C1751; C1758; C1769; G8978-GP-CK; G8979-GP-CI; J0131; J0692; J1100; J1956; J2001; J2185; J2250; J2405; J2543; J2704; J2765; J3010; J7050; P9047; Q9961; S0028

== ENCOUNTER 2018-05-08 11:24 | Inpatient (IN) | payer MEDICARE ==
[2018-05-08 12:23] LABS: Bilirubin Negative (Negative); Blood, Urine Large (Negative); Clarity CLOUDY (Clear); Glucose, Urine (Dipstick) Negative (Negative); Leukocyte Small (Negative); Nitrite Negative (Negative); Protein, Urine (Dipstick) 100 mg/dL (Neg-Trace)
[2018-05-08 12:25] LABS: WBC/HPF 21-50 HPF (0-3)
[2018-05-08 12:26] LABS: Yeast-AUWi Flag 178.3 (0-25.0)
[2018-05-08 12:27] LABS: Specific Gravity, Urine Greater than 1.060 (1.002-1.036)
[2018-05-08 12:35] LABS: RBC/HPF GREATER THAN 50-TNTC HPF (0-3)
[2018-05-08 12:36] LABS: Bacteria/HPF 1+ HPF (None Seen); Hyaline Casts/LPF NONE SEEN LPF (0-3 Hyaline); Manual Microscopic Reviewed? No Path Casts Seen; Yeast-All Forms 1+ HPF (None Seen)
[2018-05-08] MEDS ORDERED: Sodium Chloride 0.9% 1,000 ML IV SCH (13:00)
[2018-05-08] MEDS ORDERED: Meropenem 1 GM in Sodium Chloride 0.9% 100 ML IVPB SCH (13:00)
[2018-05-08 13:08] LABS: #Lymphocytes 1.7 thou/uL (1.20-3.40); #Monocytes 1.1 thou/uL (0.11-0.59); #Neutrophils 9.8 thou/uL (1.40-6.50); %Basophils 0.2 % (0.0-1.0); %Eosinophils 0.3 % (0.0-10.0); %Lymphocytes 13.6 % (21.0-51.0); %Monocytes 8.4 % (0.0-10.0); %Neutrophils 77.5 % (42.0-75.0); Hemoglobin 10.9 g/dL (12.0-16.0); Mean Corpuscular HGB CONC 31.5 g/dL (32.0-36.0); Mean Corpuscular Hemoglobin 28.2 pg (27.0-31.0); Mean Corpuscular Volume 89.4 fL (78.0-98.0); Mean Platelet Volume 6.2 fL (7.4-10.4); Platelet Count 548 thou/uL (130-400); RBC Distribution Width 13.7 % (11.5-14.5); Red Blood Cell (RBC) Count 3.85 mill/uL (4.20-5.40); White Blood Cell (WBC) Count 12.6 thou/uL (4.8-10.8)
[2018-05-08 13:30] LABS: CKMB 0.4 ng/mL (0-6.6); Troponin I Less than 0.010 ng/mL (< 0.028)
[2018-05-08 13:40] LABS: ALT (SGPT) 12 U/L (8-55); AST (SGOT) 22 U/L (5-34); Alkaline Phosphatase 80 U/L (40-150); Anion Gap 16 mmol/L (10-20); BUN (Urea Nitrogen) 8 mg/dL (9.8-20.1); Bilirubin, Total 0.5 mg/dL (0.2-1.2); CK (CPK) 28 U/L (29-168); Calc. Creatinine Clearance 0 mL/min (70-130); Calcium 8.7 mg/dL (7.8-10.44); Carbon Dioxide 22 mmol/L (23-31); Chloride 102 mmol/L (98-107); Estimated GFR-MDRD Greater than 90; Globulin 4.1 g/dL (2.4-3.5); Glucose 106 mg/dL (83-110); Lipase Less than 4 U/L (8-78); Potassium 3.7 mmol/L (3.5-5.1); Protein, Total 7.1 g/dL (6.0-8.3); Sodium 136 mmol/L (136-145)
[2018-05-08] MEDS ORDERED: Morphine 4 MG/ML VIAL ONE (14:00)
--- NOTE | 2018-05-08 14:20 | CON ---
DATE OF CONSULTATION: 05/08/2018 CHIEF COMPLAINT: Worsening diverticulitis. HISTORY OF PRESENT ILLNESS: This is a 72-year-old female who came back to the hospital today for a t ube check via CT scan found to have worsening diverticulitis. Her pain was worse after eating a heav y Thanksgiving meal last night. Review of the CT this morning reveals worsening diverticular inflammation, contained perforation, no significant free air. The previous psoas abscess fluid collection is improved. The patient herself states that she has been doing actually better in the last few days. She is pain free now. Please s ee previous notes for details. PHYSICAL EXAMINATION: VITAL SIGNS: Blood pressure is 114/82, her pulse is 85. She is afebrile. CHEST: Clear. HEART: Regular rate. ABDOMEN: Soft, tender in the left lower quadrant with localized guarding, no rebound, no abdominal i nguinal hernias. EXTREMITIES: No ischemia or edema to extremities. LABORATORY DATA: White blood cell count 12, hemoglobin 10, creatinine 0.56. ASSESSMENT: Worsening diverticulitis refractory to medical treatment including percutaneous drain. PLAN: Admit to hospital for IV antibiotics. We will have medical admit her. Plan surgery within next 3-4 days.
--- NOTE | 2018-05-08 15:19 | HP ---
PRIMARY CARE PHYSICIAN: [facility] call admission. REASON FOR ADMISSION: Worsening diverticulitis with abscess. HISTORY OF PRESENT ILLNESS: A 72-year-old female who was admitted in our hospital on 04/20/2018. At that time, patient had a CT of the abdomen and pelvis for her lower abdominal pain which showed phlegmon in the left hemipelvis with iliopsoas abscess. The patient was predominantly suspected for diverticulitis with abscess. The patient also had associated left hydronephrosis and hydroureter secondary to inflammatory changes. During that admission, patient was evaluated by Dr. Galvan, General Surgery as well as Dr. Monreal, Urology and Dr. Castro was also involved in her care. The patient was treated with broad spectrum IV antibiotic therapy while in hospital. The patient also required CT guided drainage of the abscess. Subsequently, patient was discharged to rehab on 04/29/2018. The patient was discharged with IV antibiotic therapy after PICC line placement. As per patient, she was not receiving any antibiotic therapy at intermediate. The patient had a repeat CT today which showed worsening of diverticulitis with abscess and contained perforation. The patient was sent to emergency room for evaluation. Subsequently, patient was admitted to medical floor. Dr. Quevedo already saw this patient and he is considering that patient will need a surgery in the next 3-4 days. The patient will need IV antibiotic therapy and close monitoring in hospital. The patient still has left lower quadrant drain as well as left lower quadrant pain. Patient denies any fever or chills. She denies any urinary tract infection symptoms, but her urinalysis is consistent with urinary tract infection. The patient continued to worsen over rehab facility and that is why she was sent to emergency room for further evaluation. PAST MEDICAL HISTORY: Coronary artery disease, history of MS, history of diverticulitis, failure of outpatient therapy with abscess. PAST SURGICAL HISTORY: Shoulder surgery required a rotator cuff repair, breast implant, status post CT guided drainage of pelvic abscess. PAST PSYCHIATRIC HISTORY: Reviewed and negative. FAMILY HISTORY: Mother from lung cancer. No family history of coronary artery disease or stroke. SOCIAL HISTORY: The patient has a remote history of smoking. She quit smoking 4 months ago. She denies any alcohol abuse. She abuses marijuana periodically. She is originally from [place]. REVIEW OF SYSTEMS: The following complete review of systems was negative, unless otherwise mentioned in the HPI or below: Constitutional: Weight loss or gain, ability to conduct usual activities. Skin: Rash, itching. Eyes: Double vision, pain. ENT/Mouth: Nose bleeding, neck stiffness, pain, tenderness. Cardiovascular: Palpitations, dyspnea on exertion, orthopnea. Respiratory: Shortness of breath, wheezing, cough, hemoptysis, fever or night sweats. Gastrointestinal: Poor appetite, abdominal pain, heartburn, nausea, vomiting, constipation, or diarrhea. Genitourinary: Urgency, frequency, dysuria, nocturia. Musculoskeletal: Pain, swelling. Neurologic/Psychiatric: Anxiety, depression. Allergy/Immunologic: Skin rash, bleeding tendency. Please see my HPI for pertinent positive and negative. All other review of systems reviewed and negative except as mentioned in the HPI. ALLERGIES: No known drug allergy. CURRENT HOME MEDICATIONS: Lipitor 40 mg p.o. daily, Plavix 75 mg p.o. daily, lisinopril 2.5 mg p.o. daily, Toprol-XL 25 mg p.o. daily, Ditropan 5 mg p.o. q.8 hourly, AZO 97.5 mg p.o. q.8 hours p.r.n., MiraLax 17 grams p.o. b.i.d., Brilinta. EMERGENCY ROOM COURSE: Patient has received meropenem, IV fluid and morphine. PHYSICAL EXAMINATION: VITAL SIGNS: Currently, blood pressure 114/77, pulse 73, respiratory rate 17, temperature 98.7, saturation 98% on room air, weight 44.4 kilograms. GENERAL: Patient is currently alert, awake, no obvious acute distress, appears chronically ill. HEAD: Normocephalic, atraumatic. EYES: Pupils round, reactive to light. Extraocular muscle intact. ENT: Oropharynx within normal limits. Moist mucous membranes. No oral lesion , no pharyngeal erythema, no exudate. NECK: Supple, no JVD, no thyromegaly, no carotid bruit. LUNGS: Clear to auscultation without any rhonchi or rales. CARDIAC: S1, S2 regular. No murmur, no gallop, no rub. ABDOMEN: The patient does have left-sided lower quadrant tenderness. Patient does have drains in place. No organomegaly, rebound tenderness noted in left lower quadrant. BACK: Unremarkable, no CVA tenderness. EXTREMITIES: Upper extremity: Passive movements of all joints are normal. Lower extremities: No edema. Good distal pulsation. SKIN: No skin rash. HEMATOLOGICAL: No lymphadenopathy. SIGNIFICANT LABORATORY DATA: 1. EKG normal sinus rhythm without any acute ischemic changes. CT pelvis today showed severely inflamed sigmoid colon with extraluminal gas and fluid suggestive of contained perforation. 2. Left percutaneous groin drain remained in place. CBC: WBC 12.6, hemoglobin 10.9, platelet 548. 3. BMP shows sodium 136, potassium 3.7, chloride 102, carbon dioxide 22, BUN 8 , creatinine 0.56, calcium 8.7, lactic acid 1.7. 4. LFT: AST 22, ALT 12, alkaline phosphatase 80, albumin 3.0, lipase less than 4. CK 28, CK-MB 0.4, troponin I less than 0.010. Urinalysis suggestive of UTI. ASSESSMENT AND PLAN: 1. Acute diverticulitis complicated by contained perforation, failure of outpatient therapy. This patient does not responded to IV antibiotic therapy. Patient's condition has continued to deteriorate. The patient will require surgery. Dr. Quevedo already consulted. At this point, we will continue with antibiotic therapy with meropenem 1 gram IV q.8 hourly and Flagyl 500 mg IV q. 8 hourly, Florastor 250 mg p.o. daily. We will control her pain with morphine p.r.n. basis. Dr. Quevedo will be consulted. 2. Urinary tract infection. Patient is already started on meropenem therapy. We will follow up on culture result. 3. Protein calorie malnutrition. The patient will need nutritional supplement with Ensure t.i.d. 4. Coronary artery disease, currently stable without any angina. We will continue Lipitor, Toprol-XL, and lisinopril. 5. Hypertension, currently blood pressure is stable. We will continue Toprol- XL and lisinopril low dose. 6. Deep venous thrombosis prophylaxis, Lovenox 40 mg subcu daily. 7. Gastrointestinal prophylaxis, Pepcid 20 mg IV q.12 hourly. CODE STATUS: The patient is FULL CODE. Patient does not have any surrogate decision maker. Disposition plan based on clinical course. We are expecting patient's stay in hospital more than 2 midnights. Plan of care discussed with the patient in detail. [facility]
[2018-05-08] MEDS ORDERED: Oxybutynin 5 MG TAB PO PRN (16:15)
[2018-05-08] MEDS ORDERED: Promethazine HCl 25 MG/ML VIAL IM PRN (16:15)
[2018-05-08] MEDS ORDERED: Acetaminophen 1,000 MG in Premix Bag 1 BAG IVPB PRN (16:15)
[2018-05-08] MEDS ORDERED: Dextrose 5% in Water 1,000 ML IV PRN (16:15)
[2018-05-08] MEDS ORDERED: Dextrose 50% Abboject 50 ML SYRINGE SLOW IVP PRN (16:15)
[2018-05-08] MEDS ORDERED: Ondansetron ODT 4 MG TAB PO PRN (16:15)
[2018-05-08] MEDS ORDERED: Phenazopyridine HCl 97.5 MG TABLET PO PRN (16:15)
[2018-05-08] MEDS ORDERED: Ondansetron PF 4 MG/2 ML Vial IVP PRN (16:15)
[2018-05-08 16:37] VITALS: BMI 16.6
[2018-05-08] MEDS: D5 1/2 NS w/20 mEq KCL 1,000 ML IV SCH (17:08)
[2018-05-08] MEDS: metroNIDAZOLE 500 MG in Premix Bag 1 BAG IVPB SCH (17:10)
[2018-05-08] MEDS: Famotidine/PF 20 mg/2ml Vial SLOW IVP SCH (20:24)
[2018-05-08] MEDS: Morphine 4 MG/ML VIAL SLOW IVP PRN (20:24)
[2018-05-08] MEDS ORDERED: Enoxaparin Sodium 40 MG/0.4 ML SYRINGE SC SCH (21:00)
[2018-05-08] MEDS: MEROPENEM 1 GM/50 ML 1 GM in Premix Bag 1 BAG IVPB SCH (22:25)
[2018-05-09] MEDS: metroNIDAZOLE 500 MG in Premix Bag 1 BAG IVPB SCH ×3 (02:26→18:20)
[2018-05-09] MEDS: MEROPENEM 1 GM/50 ML 1 GM in Premix Bag 1 BAG IVPB SCH ×3 (05:44→21:39)
[2018-05-09] MEDS: D5 1/2 NS w/20 mEq KCL 1,000 ML IV SCH ×3 (05:44→18:24)
[2018-05-09 06:16] LABS: Anion Gap 11 mmol/L (10-20); BUN (Urea Nitrogen) 5 mg/dL (9.8-20.1); Calc. Creatinine Clearance 69 mL/min (70-130); Calcium 7.5 mg/dL (7.8-10.44); Carbon Dioxide 23 mmol/L (23-31); Chloride 107 mmol/L (98-107); Estimated GFR-MDRD Greater than 90; Glucose 107 mg/dL (83-110); Potassium 3.9 mmol/L (3.5-5.1); Sodium 137 mmol/L (136-145)
[2018-05-09 06:19] LABS: #Eosinphils 0.1 thou/uL (0.0-0.7); #Lymphocytes 1.4 thou/uL (1.20-3.40); #Neutrophils 5.3 thou/uL (1.40-6.50); %Basophils 0.3 % (0.0-1.0); %Eosinophils 1.1 % (0.0-10.0); %Lymphocytes 17.6 % (21.0-51.0); %Monocytes 12.8 % (0.0-10.0); %Neutrophils 68.3 % (42.0-75.0); Hemoglobin 8.4 g/dL (12.0-16.0); Mean Corpuscular HGB CONC 32.1 g/dL (32.0-36.0); Mean Corpuscular Hemoglobin 28.3 pg (27.0-31.0); Mean Corpuscular Volume 88.1 fL (78.0-98.0); Mean Platelet Volume 6.6 fL (7.4-10.4); Platelet Count 476 thou/uL (130-400); RBC Distribution Width 13.5 % (11.5-14.5); Red Blood Cell (RBC) Count 2.96 mill/uL (4.20-5.40); White Blood Cell (WBC) Count 7.8 thou/uL (4.8-10.8)
[2018-05-09] MEDS: Saccharomyces boulardii 250 MG CAP PO SCH (08:42)
[2018-05-09] MEDS: Famotidine/PF 20 mg/2ml Vial SLOW IVP SCH ×2 (08:42→21:40)
[2018-05-09] MEDS: Morphine 4 MG/ML VIAL SLOW IVP PRN (08:42)
[2018-05-09] MEDS: Atorvastatin Calcium 40 MG TAB PO SCH (08:42)
[2018-05-09] MEDS: Lisinopril 2.5 MG TAB PO SCH (08:49)
--- NOTE | 2018-05-09 09:26 | PRG ---
DATE OF SERVICE: 05/09/2018 SUBJECTIVE: Ms. Santos notes continued crampy lower abdominal pain, but it is stable. PHYSICAL EXAMINATION: VITAL SIGNS: Blood pressure 93/58, pulse 66, respirations 18. She is afebrile. ABDOMEN: Soft, tender in the left lower quadrant and pelvis. LABORATORY DATA: White blood cell count is 7, hemoglobin 8.4, and platelets are 476. Creatinine is 0.52. ASSESSMENT: Severe diverticulitis. PLAN: Left colectomy with colostomy tomorrow. Risks, benefits, and alternatives discussed. She giv es consent to do this today.
--- NOTE | 2018-05-09 10:35 | PDOC.PN ---
- Subjective Encounter Start Date: 05/09/18 Encounter Start Time: 08:20 -: old records requested/rev Patient seen and examined. No new complaints. No overnight events pt has lower abdominal pain, no fever - Objective MAR Reviewed: Yes Vital Signs & Weight: Vital Signs (12 hours) Temp Pulse Resp BP Pulse Ox 05/09/18 08:49 68 05/09/18 08:00 99.0 F 68 16 101/66 99 05/09/18 04:00 99.1 F 66 18 93/58 L 94 L 05/09/18 00:00 99.2 F 73 18 92/56 L 95 Weight Weight 97 lb 0.054 oz I&O: 05/08/18 05/09/18 05/10/18 06:59 06:59 06:59 Intake Total 2280 Output Total 20 Balance 2260 Result Diagrams: 05/09/18 05:18 05/09/18 05:18 Phys Exam - Physical Examination Constitutional: NAD HEENT: PERRLA, moist MMs, sclera anicteric Neck: no JVD, supple Respiratory: no wheezing, no rales, no rhonchi Cardiovascular: RRR, no significant murmur, no rub Gastrointestinal: soft, no distention, positive bowel sounds LLQ drain in place Musculoskeletal: no edema, pulses present Neurological: non-focal, normal sensation Lymphatic: no nodes Psychiatric: normal affect, A&O x 3 Skin: no rash, normal turgor Dx/Plan (1) Diverticulitis of intestine with perforation and abscess Code(s): K57.80 - DVTRCLI OF INTEST, PART UNSP, W PERF AND ABSCESS W/O BLEED Status: Acute (2) Anemia of chronic disease Code(s): D63.8 - ANEMIA IN OTHER CHRONIC DISEASES CLASSIFIED ELSEWHERE Status : Acute (3) Protein-calorie malnutrition, moderate Code(s): E44.0 - MODERATE PROTEIN-CALORIE MALNUTRITION Status: Acute (4) UTI (urinary tract infection) Status: Acute Qualifiers: Comment: (5) CAD (coronary artery disease) Code(s): I25.10 - ATHSCL HEART DISEASE OF [place] CORONARY ARTERY W/O ANG PCTRS Status: Chronic Qualifiers: Comment: (6) Dyslipidemia Code(s): E78.5 - HYPERLIPIDEMIA, UNSPECIFIED Status: Chronic (7) Hypoalbuminemia due to protein-calorie malnutrition Code(s): E46 - UNSPECIFIED PROTEIN-CALORIE MALNUTRITION Status: Chronic - Plan cont current plan of care, continue antibiotics, incentive spirometry * continue meropenam and flagyl * tomorrow pt is planned for surgery * medication reviewed as below * symptomatic treatment * discussed with dr de santiago * continue IVF * Hold BP meds for SBP <110. Review of Systems - Review of Systems Constitutional: weakness. negative: fever, chills, sweats, malaise, other ENT: negative: Ear Pain, Ear Discharge, Nose Pain, Nose Discharge, Nose Congestion, Mouth Pain, Mouth Swelling, Throat Pain, Throat Swelling, Other Respiratory: negative: Cough, Dry, Shortness of Breath, Hemoptysis, SOB with Excertion, Pleuritic Pain, Sputum, Wheezing Cardiovascular: negative: chest pain, palpitations, orthopnea, paroxysmal nocturnal dyspnea, edema, light headedness, other Gastrointestinal: Abdominal Pain. negative: Nausea, Vomiting, Diarrhea, Constipation, Melena, Hematochezia, Other Genitourinary: negative: Dysuria, Frequency, Incontinence, Hematuria, Retention , Other Musculoskeletal: negative: Neck Pain, Shoulder Pain, Arm Pain, Back Pain, Hand Pain, Leg Pain, Foot Pain, Other Skin: negative: Rash, Lesions, Solitario, Bruising, Other - Medications/Allergies Allergies/Adverse Reactions: Allergies Allergy/AdvReac Type Severity Reaction Status Date / Time No Known Allergies Allergy Unverified 04/20/18 22:49 Medications: Current Medications Albuterol/Ipratropium (Duoneb) 3 ml NEB Q4H PRN PRN Reason: Wheezing Atorvastatin Calcium (Lipitor) 40 mg PO DAILY [facility] Last Admin: 05/09/18 08:42 Dose: 40 mg Dextrose/Water (Dextrose 50%) 25 gm SLOW IVP PRN PRN PRN Reason: Hypoglycemia Enoxaparin Sodium (Lovenox) 40 mg SC 2100 [facility] Last Admin: 05/08/18 20:24 Dose: 40 mg Famotidine (Pepcid) 20 mg SLOW IVP Q12HR [facility] Last Admin: 05/09/18 08:42 Dose: 20 mg Glucagon (Glucagon) 1 mg IM PRN PRN PRN Reason: Hypoglycemia Acetaminophen 1,000 mg/ Device 100 mls @ 400 mls/hr IVPB Q6H PRN PRN Reason: Fever/Mild Pain Stop: 05/09/18 16:16 Dextrose/Water (D5w) 1,000 mls @ 0 mls/hr IV .Q0M PRN PRN Reason: Hypoglycemia Meropenem 1 gm/ Device 50 mls @ 100 mls/hr IVPB Q8HR [facility] Last Admin: 05/09/18 05:44 Dose: 50 mls Metronidazole 500 mg/ Device 100 mls @ 100 mls/hr IVPB 0200,1000,1800 [facility] Last Admin: 05/09/18 09:14 Dose: 100 mls Potassium Chloride/Dextrose/Sod Cl (D5 1/2 Ns W/20 Meq Kcl) 1,000 mls @ 70 mls/ hr IV .[id number] [facility] Last Admin: 05/09/18 08:49 Dose: Not Given Lisinopril (Zestril) 2.5 mg PO DAILY [facility] Last Admin: 05/09/18 08:49 Dose: Not Given Metoprolol Succinate (Toprol Xl) 25 mg PO DAILY [facility] Last Admin: 05/09/18 08:49 Dose: Not Given Morphine Sulfate (Morphine) 2 mg IVP Q2H PRN PRN Reason: Mild Pain (1-3) Morphine Sulfate (Morphine) 4 mg SLOW IVP Q2H PRN PRN Reason: Severe Pain (7-10) Last Admin: 05/09/18 08:42 Dose: 4 mg Ondansetron HCl (Zofran Odt) 4 mg PO Q6H PRN PRN Reason: Nausea/Vomiting Ondansetron HCl (Zofran) 4 mg IVP Q6H PRN PRN Reason: Nausea Oxybutynin Chloride (Ditropan) 5 mg PO Q8H PRN PRN Reason: Bladder Spasms Phenazopyridine HCl (Azo Standard) 97.5 mg PO Q8H PRN PRN Reason: dysuria Promethazine HCl (Phenergan) 12.5 mg IM Q4H PRN PRN Reason: Nausea Saccharomyces Boulardii (Florastor) 250 mg PO DAILY [facility] Last Admin: 05/09/18 08:42 Dose: 250 mg Sodium Chloride (Flush - Normal Saline) 10 ml IVF PRN PRN PRN Reason: Saline Flush
[2018-05-09] MEDS: Morphine 2 MG/ML SYRINGE IVP PRN ×3 (15:09→21:40)
[2018-05-10] MEDS: metroNIDAZOLE 500 MG in Premix Bag 1 BAG IVPB SCH ×2 (01:05→12:17)
[2018-05-10] MEDS: Morphine 2 MG/ML SYRINGE IVP PRN (01:06)
[2018-05-10] MEDS: D5 1/2 NS w/20 mEq KCL 1,000 ML IV SCH (01:17)
[2018-05-10] MEDS: MEROPENEM 1 GM/50 ML 1 GM in Premix Bag 1 BAG IVPB SCH ×3 (05:31→21:00)
[2018-05-10 06:02] LABS: Anion Gap 12 mmol/L (10-20); BUN (Urea Nitrogen) Less than 4 mg/dL (9.8-20.1); Calc. Creatinine Clearance 70 mL/min (70-130); Calcium 8.1 mg/dL (7.8-10.44); Carbon Dioxide 20 mmol/L (23-31); Chloride 108 mmol/L (98-107); Estimated GFR-MDRD Greater than 90; Glucose 93 mg/dL (83-110); Potassium 3.7 mmol/L (3.5-5.1); Sodium 136 mmol/L (136-145)
[2018-05-10 06:47] LABS: Band 1 % (5-11); Eosinophils 2 % (0-10); Hemoglobin 9.2 g/dL (12.0-16.0); Lymphocytes 39 % (21-51); MDiff Complete? YES; Mean Corpuscular HGB CONC 31.9 g/dL (32.0-36.0); Mean Corpuscular Hemoglobin 28.2 pg (27.0-31.0); Mean Corpuscular Volume 88.4 fL (78.0-98.0); Mean Platelet Volume 6.4 fL (7.4-10.4); Monocytes 14 % (0-10); Neutrophil 44 % (42-75); PLT Morphology Comment Appears Increased; Platelet Count 500 thou/uL (130-400); RBC Distribution Width 13.5 % (11.5-14.5); Red Blood Cell (RBC) Count 3.28 mill/uL (4.20-5.40); Small Platelets SLIGHT
[2018-05-10] MEDS ORDERED: HYDROmorphone 2 MG/ML VIAL ONE (07:12)
[2018-05-10] MEDS ORDERED: Fentanyl 100 MCG/2 ML VIAL ONE (07:12)
[2018-05-10] MEDS: Atorvastatin Calcium 40 MG TAB PO SCH (08:30)
[2018-05-10] MEDS: Famotidine/PF 20 mg/2ml Vial SLOW IVP SCH ×2 (08:30→20:52)
[2018-05-10] MEDS: Saccharomyces boulardii 250 MG CAP PO SCH (08:30)
[2018-05-10] MEDS ORDERED: Promethazine HCl 25 MG/ML VIAL SLOW IVP PRN (09:59)
[2018-05-10] MEDS ORDERED: Promethazine HCl 25 MG/ML VIAL IM PRN ×3 (09:59→12:34)
[2018-05-10] MEDS ORDERED: Ondansetron HCl/PF 4 MG/2 ML Vial IVP PRN (09:59)
--- NOTE | 2018-05-10 10:27 | PDOC.PN ---
- Subjective Encounter Start Date: 05/10/18 Encounter Start Time: 08:15 Patient seen and examined. No new complaints. No overnight events - Objective MAR Reviewed: Yes Vital Signs & Weight: Vital Signs (12 hours) Temp Pulse Resp BP Pulse Ox 05/10/18 04:25 98.7 F 61 16 97/56 L 98 05/10/18 00:25 97.8 F 64 16 107/77 98 Weight Admit Weight 97 lb Weight 97 lb 0.054 oz I&O: 05/09/18 05/10/18 05/11/18 06:59 06:59 06:59 Intake Total 2280 2522 Output Total 20 25 Balance 2260 2497 Result Diagrams: 05/10/18 05:17 05/10/18 05:17 Additional Labs: Accuchecks 05/10/18 00:15 POC Glucose 127 H Phys Exam - Physical Examination Constitutional: NAD HEENT: PERRLA, moist MMs, sclera anicteric Neck: no JVD, supple Respiratory: no wheezing, no rales, no rhonchi Cardiovascular: RRR, no significant murmur, no rub Gastrointestinal: soft, no distention, positive bowel sounds diffuse sore ness, LLQ drain in place Musculoskeletal: no edema, pulses present Neurological: non-focal, normal sensation Lymphatic: no nodes Psychiatric: normal affect, A&O x 3 Skin: no rash, normal turgor Dx/Plan (1) Diverticulitis of intestine with perforation and abscess Code(s): K57.80 - DVTRCLI OF INTEST, PART UNSP, W PERF AND ABSCESS W/O BLEED Status: Acute (2) Anemia of chronic disease Code(s): D63.8 - ANEMIA IN OTHER CHRONIC DISEASES CLASSIFIED ELSEWHERE Status : Acute (3) Protein-calorie malnutrition, moderate Code(s): E44.0 - MODERATE PROTEIN-CALORIE MALNUTRITION Status: Acute (4) UTI (urinary tract infection) Status: Acute Qualifiers: Comment: (5) CAD (coronary artery disease) Code(s): I25.10 - ATHSCL HEART DISEASE OF [place] CORONARY ARTERY W/O ANG PCTRS Status: Chronic Qualifiers: Comment: (6) Dyslipidemia Code(s): E78.5 - HYPERLIPIDEMIA, UNSPECIFIED Status: Chronic (7) Hypoalbuminemia due to protein-calorie malnutrition Code(s): E46 - UNSPECIFIED PROTEIN-CALORIE MALNUTRITION Status: Chronic - Plan cont current plan of care, continue antibiotics * today plan for surgery * after surgery continue post operative care as per surgeon * continue meropenam and flagyl * medication reviewed as below * symptomatic treatment. Review of Systems - Review of Systems Constitutional: negative: fever, chills, sweats, weakness, malaise, other Eyes: negative: Pain, Vision Change, Conjunctivae Inflammation, Eyelid Inflammation, Redness, Other ENT: negative: Ear Pain, Ear Discharge, Nose Pain, Nose Discharge, Nose Congestion, Mouth Pain, Mouth Swelling, Throat Pain, Throat Swelling, Other Respiratory: negative: Cough, Dry, Shortness of Breath, Hemoptysis, SOB with Excertion, Pleuritic Pain, Sputum, Wheezing Cardiovascular: negative: chest pain, palpitations, orthopnea, paroxysmal nocturnal dyspnea, edema, light headedness, other Gastrointestinal: Abdominal Pain. negative: Nausea, Vomiting, Diarrhea, Constipation, Melena, Hematochezia, Other Genitourinary: negative: Dysuria, Frequency, Incontinence, Hematuria, Retention , Other Musculoskeletal: negative: Neck Pain, Shoulder Pain, Arm Pain, Back Pain, Hand Pain, Leg Pain, Foot Pain, Other Skin: negative: Rash, Lesions, Solitario, Bruising, Other - Medications/Allergies Allergies/Adverse Reactions: Allergies Allergy/AdvReac Type Severity Reaction Status Date / Time No Known Allergies Allergy Unverified 04/20/18 22:49 Medications: Current Medications Albuterol/Ipratropium (Duoneb) 3 ml NEB Q4H PRN PRN Reason: Wheezing Atorvastatin Calcium (Lipitor) 40 mg PO DAILY [facility] Last Admin: 05/10/18 08:30 Dose: Not Given Dextrose/Water (Dextrose 50%) 25 gm SLOW IVP PRN PRN PRN Reason: Hypoglycemia Enoxaparin Sodium (Lovenox) 40 mg SC 2100 [facility] Last Admin: 05/08/18 20:24 Dose: 40 mg Famotidine (Pepcid) 20 mg SLOW IVP Q12HR [facility] Last Admin: 05/10/18 08:30 Dose: Not Given Fentanyl (Pacu-Sublimaze) 50 mcg SLOW IVP Q10MIN PRN PRN Reason: Moderate to Severe Pain (6-10) Stop: 05/10/18 12:59 Glucagon (Glucagon) 1 mg IM PRN PRN PRN Reason: Hypoglycemia Dextrose/Water (D5w) 1,000 mls @ 0 mls/hr IV .Q0M PRN PRN Reason: Hypoglycemia Meropenem 1 gm/ Device 50 mls @ 100 mls/hr IVPB Q8HR [facility] Last Admin: 05/10/18 05:31 Dose: 50 mls Metronidazole 500 mg/ Device 100 mls @ 100 mls/hr IVPB 0200,1000,1800 [facility] Last Admin: 05/10/18 01:05 Dose: 100 mls Potassium Chloride/Dextrose/Sod Cl (D5 1/2 Ns W/20 Meq Kcl) 1,000 mls @ 70 mls/ hr IV .[id number] [facility] Last Admin: 05/10/18 01:17 Dose: 1,000 mls Lisinopril (Zestril) 2.5 mg PO DAILY [facility] Last Admin: 05/09/18 08:49 Dose: Not Given Metoprolol Succinate (Toprol Xl) 25 mg PO DAILY [facility] Last Admin: 05/09/18 08:49 Dose: Not Given Morphine Sulfate (Morphine) 2 mg IVP Q2H PRN PRN Reason: Mild Pain (1-3) Last Admin: 05/10/18 01:06 Dose: 2 mg Morphine Sulfate (Morphine) 4 mg SLOW IVP Q2H PRN PRN Reason: Severe Pain (7-10) Last Admin: 05/09/18 08:42 Dose: 4 mg Ondansetron HCl (Zofran Odt) 4 mg PO Q6H PRN PRN Reason: Nausea/Vomiting Ondansetron HCl (Zofran) 4 mg IVP Q6H PRN PRN Reason: Nausea Ondansetron HCl (Pacu-Zofran) 4 mg IVP ONE PRN PRN Reason: Nausea/Vomiting Stop: 05/10/18 12:59 Oxybutynin Chloride (Ditropan) 5 mg PO Q8H PRN PRN Reason: Bladder Spasms Phenazopyridine HCl (Azo Standard) 97.5 mg PO Q8H PRN PRN Reason: dysuria Promethazine HCl (Phenergan) 12.5 mg IM Q4H PRN PRN Reason: Nausea Promethazine HCl (Pacu-Phenergan) 6.25 mg SLOW IVP ONE PRN PRN Reason: Nausea/Vomiting Stop: 05/10/18 12:59 Promethazine HCl (Pacu-Phenergan) 6.25 mg IM ONE PRN PRN Reason: Nausea/Vomiting Stop: 05/10/18 12:59 Saccharomyces Boulardii (Florastor) 250 mg PO DAILY [facility] Last Admin: 05/10/18 08:30 Dose: Not Given Sodium Chloride (Flush - Normal Saline) 10 ml IVF PRN PRN PRN Reason: Saline Flush
[2018-05-10] MEDS ORDERED: Ondansetron PF 4 MG/2 ML Vial IVP PRN (11:09)
[2018-05-10] MEDS ORDERED: hydrALAZINE 20 MG/ML VIAL SLOW IVP PRN (11:09)
[2018-05-10] MEDS: Lisinopril 2.5 MG TAB PO SCH (11:13)
[2018-05-10] MEDS ORDERED: Glycopyrrolate 0.2 MG/ML 5 ML SYRINGE ONE (11:26)
[2018-05-10] MEDS ORDERED: Dexamethasone 20 MG/5 ML VIAL ONE (11:26)
[2018-05-10] MEDS ORDERED: PROPOFOL 200 MG/20 ML VIAL ONE (11:26)
[2018-05-10] MEDS ORDERED: PHENYLEPHRINE-NS 100 MCG/ML 10 ML SYRINGE ONE (11:26)
[2018-05-10] MEDS ORDERED: Ondansetron PF 4 MG/2 ML Vial ONE (11:26)
[2018-05-10] MEDS ORDERED: Lidocaine 1% PF 5 ML VIAL ONE (11:26)
[2018-05-10] MEDS: Acetaminophen 1,000 MG in Premix Bag 1 BAG IVPB SCH ×2 (11:34→17:29)
--- NOTE | 2018-05-10 11:39 | OP ---
DATE OF PROCEDURE: 05/10/2018 PREOPERATIVE DIAGNOSES: Left colon diverticulitis versus mass with worsening pain and inflammatory c hange. PROCEDURE: 1. Exploratory laparotomy and left colectomy with end colostomy and Demetra stump. 2. Splenic flexure mobilization. SURGEON: Lv Quevedo M.D. ANESTHESIA: General. ESTIMATED BLOOD LOSS: 50 mL. COMPLICATIONS: None. FINDINGS: Mass in the left colon. TECHNIQUE: The patient was taken to the operating room and laid supine on the table. After general anesthetic was obtained, a Castanon was placed. The abdomen was shaved, prepped, and draped in a steril e fashion. Midline incision was made. Bookwalter retractor was placed. There was severe local infl ammatory change and mass-like effect in the colon. Left ureter was found and excluded from the disse ction. The stent could be felt. There was extensive inflammatory change in the mesentery of the lef t colon. Mesentery for the left colon was taken using the impact LigaSure down into the pelvis, in t he lower sigmoid near the rectosigmoid junction. A contour stapler was fired across the colon distal to the inflammatory area. The mass-like effect in the left colon and the sigmoid colon was meticulo usly dissected off of the left pelvic sidewall, avoiding injury to the ureter. Suture was placed on distal margin. Splenic flexure was then mobilized in the usual fashion. An additional small amount of mesentery was taken where it looked like the mass-like effect was still present. This would be th e radial margin of the resection. A window was made at the base of the appendix and the appendix was removed, because of it was stuck to the local inflammatory area and its tip was involved. The ellip se of skin was taken out in the left abdomen, in the proximal colon, brought up here. This will be t he colostomy. Abdomen was irrigated. There was no ongoing bleeding. Prolene suture placed on the t ip of the Demetra. PDS was used to close the fascial defect from the top and the bottom and tied in the middle. Subcutaneous tissues were irrigated and closed using 3-0 Vicryl, 4-0 Monocryl, and Derm abond. The colostomy was matured in usual fashion using Vicryl suture. The patient was en route to recovery in stable condition. All instrument counts, needle counts, lap counts were correct.
[2018-05-10] MEDS ORDERED: diphenhydrAMINE 50 MG/ML VIAL IM PRN (12:34)
[2018-05-10] MEDS ORDERED: Zolpidem Tartrate 5 MG TAB PO PRN (12:34)
[2018-05-10] MEDS ORDERED: diphenhydrAMINE 50 MG/ML VIAL IVP PRN (12:34)
[2018-05-10] MEDS ORDERED: Naloxone HCl 0.4 mg/ml Vial IV PRN (12:34)
[2018-05-10] MEDS ORDERED: diphenhydrAMINE 25 MG CAP PO PRN (12:34)
[2018-05-10] MEDS ORDERED: Communication Order-Pharmacy FS SCH (12:45)
[2018-05-10] MEDS: fentaNYL Citrate/PF 2,000 MCG in Sodium Chloride 0.9% 60 ML IV PRN (13:46)
[2018-05-10] MEDS ORDERED: Artificial Tear Sol 15 ML BOT EA EYE PRN (16:14)
[2018-05-10] MEDS: Sodium Chloride 0.9% 1,000 ML IV SCH (17:29)
[2018-05-10] MEDS: Enoxaparin Sodium 40 MG/0.4 ML SYRINGE SC SCH (20:52)
[2018-05-10] MEDS ORDERED: Famotidine 20 MG TAB PO SCH (21:00)
[2018-05-11] MEDS: Acetaminophen 1,000 MG in Premix Bag 1 BAG IVPB SCH ×2 (00:57→06:21)
[2018-05-11 05:59] LABS: Anion Gap 13 mmol/L (10-20); BUN (Urea Nitrogen) 7 mg/dL (9.8-20.1); Calc. Creatinine Clearance 62 mL/min (70-130); Calcium 8.1 mg/dL (7.8-10.44); Carbon Dioxide 21 mmol/L (23-31); Chloride 109 mmol/L (98-107); Estimated GFR-MDRD Greater than 90; Glucose 130 mg/dL (83-110); Potassium 4.7 mmol/L (3.5-5.1); Sodium 138 mmol/L (136-145)
[2018-05-11] MEDS: MEROPENEM 1 GM/50 ML 1 GM in Premix Bag 1 BAG IVPB SCH ×3 (06:20→21:29)
[2018-05-11 06:24] LABS: #Basophils 0.1 thou/uL (0.0-0.2); #Lymphocytes 2.1 thou/uL (1.20-3.40); #Monocytes 1.3 thou/uL (0.11-0.59); #Neutrophils 10.1 thou/uL (1.40-6.50); %Basophils 0.4 % (0.0-1.0); %Eosinophils 0.3 % (0.0-10.0); %Lymphocytes 15.2 % (21.0-51.0); %Monocytes 9.7 % (0.0-10.0); %Neutrophils 74.5 % (42.0-75.0); Hemoglobin 9.2 g/dL (12.0-16.0); Mean Corpuscular HGB CONC 32.6 g/dL (32.0-36.0); Mean Corpuscular Hemoglobin 28.3 pg (27.0-31.0); Mean Corpuscular Volume 86.8 fL (78.0-98.0); Mean Platelet Volume 6.5 fL (7.4-10.4); PLT Morphology Comment Appears Increased; Platelet Count 574 thou/uL (130-400); RBC Distribution Width 13.5 % (11.5-14.5); RBC Morphology Normal; Red Blood Cell (RBC) Count 3.24 mill/uL (4.20-5.40); White Blood Cell (WBC) Count 13.6 thou/uL (4.8-10.8)
[2018-05-11] MEDS: Sodium Chloride 0.9% 1,000 ML IV SCH ×3 (07:39→21:33)
--- NOTE | 2018-05-11 08:17 | PRG ---
DATE OF SERVICE: 05/11/2018 Ms. Santos notes pain, but no nausea. PHYSICAL EXAMINATION: VITAL SIGNS: She is afebrile and her vital signs are stable. ABDOMEN: Soft, nondistended and incision is healing well. Colostomy; mucosa is dark, but viable. T here is no stool in the bag. ASSESSMENT: Postop day #1, left colectomy for chronic diverticulitis on meropenem. PLAN: Stay on clear liquids today. Encouraged ambulation. I explained to her that if she is more a mbulatory and dependent she does not have to go back to rehab later this week when she is discharged.
[2018-05-11] MEDS: Famotidine/PF 20 mg/2ml Vial SLOW IVP SCH ×2 (09:45→21:30)
[2018-05-11] MEDS: Atorvastatin Calcium 40 MG TAB PO SCH (09:45)
[2018-05-11] MEDS: Lisinopril 2.5 MG TAB PO SCH (09:50)
--- NOTE | 2018-05-11 13:08 | PDOC.PN ---
- Subjective Encounter Start Date: 05/11/18 Encounter Start Time: 08:45 Patient seen and examined. No new complaints. No overnight events - Objective MAR Reviewed: Yes Vital Signs & Weight: Vital Signs (12 hours) Temp Pulse Resp BP Pulse Ox 05/11/18 10:49 97.6 F 70 16 106/73 98 05/11/18 09:50 74 05/11/18 07:11 97.6 F 74 14 101/65 97 05/11/18 04:00 98.0 F 74 18 104/69 97 Weight Admit Weight 97 lb Weight 97 lb 0.054 oz I&O: 05/10/18 05/11/18 05/12/18 06:59 06:59 06:59 Intake Total 2522 890 Output Total 25 200 400 Balance 2497 -200 490 Result Diagrams: 05/11/18 05:22 05/11/18 05:22 Phys Exam - Physical Examination Constitutional: NAD HEENT: PERRLA, moist MMs, sclera anicteric Neck: no JVD, supple Respiratory: no wheezing, no rales, no rhonchi Cardiovascular: RRR, no significant murmur, no rub Gastrointestinal: soft, non-tender, no distention, positive bowel sounds surgical site clean, colostomy+ Musculoskeletal: no edema, pulses present Neurological: non-focal, normal sensation, moves all 4 limbs Lymphatic: no nodes Psychiatric: normal affect, A&O x 3 Skin: no rash, normal turgor Dx/Plan (1) Diverticulitis of intestine with perforation and abscess Code(s): K57.80 - DVTRCLI OF INTEST, PART UNSP, W PERF AND ABSCESS W/O BLEED Status: Acute (2) S/P left colectomy Code(s): Z90.49 - ACQUIRED ABSENCE OF OTHER SPECIFIED PARTS OF DIGESTIVE TRACT Status: Acute (3) S/P colostomy Code(s): Z93.3 - COLOSTOMY STATUS Status: Acute (4) Anemia of chronic disease Code(s): D63.8 - ANEMIA IN OTHER CHRONIC DISEASES CLASSIFIED ELSEWHERE Status : Acute (5) Protein-calorie malnutrition, moderate Code(s): E44.0 - MODERATE PROTEIN-CALORIE MALNUTRITION Status: Acute (6) UTI (urinary tract infection) Status: Acute Qualifiers: Comment: (7) CAD (coronary artery disease) Code(s): I25.10 - ATHSCL HEART DISEASE OF [place] CORONARY ARTERY W/O ANG PCTRS Status: Chronic Qualifiers: Comment: (8) Dyslipidemia Code(s): E78.5 - HYPERLIPIDEMIA, UNSPECIFIED Status: Chronic (9) Hypoalbuminemia due to protein-calorie malnutrition Code(s): E46 - UNSPECIFIED PROTEIN-CALORIE MALNUTRITION Status: Chronic - Plan cont current plan of care, continue antibiotics, PT/OT, incentive spirometry * continue meropenam * continue post operative care as per surgeon * medication reviewed as below * symptomatic treatment * ambulate as tolerated * on LASERIST for pain control. * on clear liquid diet, diet will defer to surgeon * continue IVF * repeat labs tomorrow Review of Systems - Review of Systems Eyes: negative: Pain, Vision Change, Conjunctivae Inflammation, Eyelid Inflammation, Redness, Other ENT: negative: Ear Pain, Ear Discharge, Nose Pain, Nose Discharge, Nose Congestion, Mouth Pain, Mouth Swelling, Throat Pain, Throat Swelling, Other Respiratory: negative: Cough, Dry, Shortness of Breath, Hemoptysis, SOB with Excertion, Pleuritic Pain, Sputum, Wheezing Cardiovascular: negative: chest pain, palpitations, orthopnea, paroxysmal nocturnal dyspnea, edema, light headedness, other Gastrointestinal: Abdominal Pain. negative: Nausea, Vomiting, Diarrhea, Constipation, Melena, Hematochezia, Other Genitourinary: negative: Dysuria, Frequency, Incontinence, Hematuria, Retention , Other Musculoskeletal: negative: Neck Pain, Shoulder Pain, Arm Pain, Back Pain, Hand Pain, Leg Pain, Foot Pain, Other Skin: negative: Rash, Lesions, Solitario, Bruising, Other - Medications/Allergies Allergies/Adverse Reactions: Allergies Allergy/AdvReac Type Severity Reaction Status Date / Time No Known Allergies Allergy Unverified 04/20/18 22:49 Medications: Current Medications Albuterol/Ipratropium (Duoneb) 3 ml NEB Q4H PRN PRN Reason: Wheezing Artificial Tears (Tears Renewed 15ml Bottle) 1 drop EA EYE PRN PRN PRN Reason: Dry Eyes Atorvastatin Calcium (Lipitor) 40 mg PO DAILY [facility] Last Admin: 05/11/18 09:45 Dose: 40 mg Diphenhydramine HCl (Benadryl) 25 mg IVP Q3H PRN PRN Reason: Itching Diphenhydramine HCl (Benadryl) 25 mg PO Q3H PRN PRN Reason: Itching Diphenhydramine HCl (Benadryl) 25 mg IM Q3H PRN PRN Reason: Itching Enoxaparin Sodium (Lovenox) 40 mg SC 2100 [facility] Last Admin: 05/10/18 20:52 Dose: 40 mg Famotidine (Pepcid) 20 mg SLOW IVP Q12HR [facility] Last Admin: 05/11/18 09:45 Dose: 20 mg Hydralazine HCl (Apresoline) 10 mg SLOW IVP Q4H PRN PRN Reason: SBP > 170 or DBP > 100 Meropenem 1 gm/ Device 50 mls @ 100 mls/hr IVPB Q8HR [facility] Last Admin: 05/11/18 06:20 Dose: 50 mls Sodium Chloride (Normal Saline 0.9%) 1,000 mls @ 70 mls/hr IV .[id number] [facility] Last Admin: 05/11/18 07:39 Dose: Not Given Fentanyl Citrate 2,000 mcg/ (Sodium Chloride) 100 mls @ 0 mls/hr IV INF PRN PRN Reason: Pain Last Admin: 05/10/18 13:46 Dose: 100 mls Lisinopril (Zestril) 2.5 mg PO DAILY [facility] Last Admin: 05/11/18 09:50 Dose: Not Given Metoprolol Succinate (Toprol Xl) 25 mg PO DAILY [facility] Last Admin: 05/11/18 09:50 Dose: Not Given Naloxone HCl (Narcan) 0.2 mg IV Q5MIN PRN PRN Reason: Opiate Reversal Ondansetron HCl (Zofran) 4 mg IVP Q6H PRN PRN Reason: Nausea/Vomiting Promethazine HCl (Phenergan) 12.5 mg IM Q4H PRN PRN Reason: Nausea/Vomiting Sodium Chloride (Flush - Normal Saline) 10 ml IVF PRN PRN PRN Reason: Saline Flush Zolpidem Tartrate (Ambien) 5 mg PO HSPRN PRN PRN Reason: Insomnia
[2018-05-11] MEDS: Enoxaparin Sodium 40 MG/0.4 ML SYRINGE SC SCH (21:30)
[2018-05-12] MEDS: MEROPENEM 1 GM/50 ML 1 GM in Premix Bag 1 BAG IVPB SCH ×3 (05:20→21:32)
[2018-05-12 06:47] LABS: #Eosinphils 0.1 thou/uL (0.0-0.7); #Lymphocytes 2.7 thou/uL (1.20-3.40); #Monocytes 0.8 thou/uL (0.11-0.59); #Neutrophils 6.8 thou/uL (1.40-6.50); %Basophils 0.3 % (0.0-1.0); %Eosinophils 0.6 % (0.0-10.0); %Monocytes 7.9 % (0.0-10.0); %Neutrophils 65.2 % (42.0-75.0); Hemoglobin 6.8 g/dL (12.0-16.0); Mean Corpuscular HGB CONC 31.2 g/dL (32.0-36.0); Mean Corpuscular Hemoglobin 27.9 pg (27.0-31.0); Mean Corpuscular Volume 89.3 fL (78.0-98.0); Mean Platelet Volume 6.4 fL (7.4-10.4); Platelet Count 564 thou/uL (130-400); RBC Distribution Width 13.5 % (11.5-14.5); Red Blood Cell (RBC) Count 2.45 mill/uL (4.20-5.40); White Blood Cell (WBC) Count 10.5 thou/uL (4.8-10.8)
[2018-05-12 06:54] LABS: Anion Gap 11 mmol/L (10-20); BUN (Urea Nitrogen) 8 mg/dL (9.8-20.1); Calc. Creatinine Clearance 73 mL/min (70-130); Carbon Dioxide 24 mmol/L (23-31); Chloride 109 mmol/L (98-107); Estimated GFR-MDRD Greater than 90; Glucose 84 mg/dL (83-110); Magnesium 1.6 mg/dL (1.6-2.6); Phosphorus 2.4 mg/dL (2.3-4.7); Potassium 4.3 mmol/L (3.5-5.1); Sodium 140 mmol/L (136-145)
[2018-05-12] MEDS: Atorvastatin Calcium 40 MG TAB PO SCH (09:32)
[2018-05-12] MEDS: Lisinopril 2.5 MG TAB PO SCH (09:33)
[2018-05-12] MEDS: Famotidine/PF 20 mg/2ml Vial SLOW IVP SCH ×2 (09:35→21:32)
--- NOTE | 2018-05-12 10:32 | PDOC.PN ---
- Subjective Encounter Start Date: 05/12/18 Encounter Start Time: 10:30 Feels ok. Not tolerating the clear liquids because she is a vegetarian and the broth is making her nauseated just to smell it. Overall does not feel great. - Objective MAR Reviewed: Yes Vital Signs & Weight: Vital Signs (12 hours) Temp Pulse Resp BP BP BP Pulse Ox 05/12/18 09:33 82 121/73 05/12/18 07:50 98.4 F 82 16 118/71 99 05/12/18 04:33 98.3 F 85 20 99/60 98 05/12/18 00:05 98.1 F 84 22 H 106/58 L 95 Weight Admit Weight 97 lb Weight 97 lb 0.054 oz I&O: 05/11/18 05/12/18 05/13/18 06:59 06:59 06:59 Intake Total 3150 Output Total 200 1350 Balance -200 1800 Result Diagrams: 05/12/18 05:19 05/12/18 05:19 Phys Exam - Physical Examination Constitutional: NAD Had shower, up in chair. Respiratory: no wheezing, no rales, no rhonchi Cardiovascular: RRR, no significant murmur, no rub Gastrointestinal: soft Musculoskeletal: no edema Trace edema in fingers/hands. Psychiatric: normal affect Skin: normal turgor Dx/Plan (1) Diverticulitis of intestine with perforation and abscess Code(s): K57.80 - DVTRCLI OF INTEST, PART UNSP, W PERF AND ABSCESS W/O BLEED Status: Acute (2) Protein-calorie malnutrition, moderate Code(s): E44.0 - MODERATE PROTEIN-CALORIE MALNUTRITION Status: Acute (3) S/P colostomy Code(s): Z93.3 - COLOSTOMY STATUS Status: Acute (4) S/P left colectomy Code(s): Z90.49 - ACQUIRED ABSENCE OF OTHER SPECIFIED PARTS OF DIGESTIVE TRACT Status: Acute (5) CAD (coronary artery disease) Code(s): I25.10 - ATHSCL HEART DISEASE OF [place] CORONARY ARTERY W/O ANG PCTRS Status: Chronic Qualifiers: Comment: (6) Hypoalbuminemia due to protein-calorie malnutrition Code(s): E46 - UNSPECIFIED PROTEIN-CALORIE MALNUTRITION Status: Chronic - Plan * Try to change clear liquid diet to better meet patient preferences. * Continue abx. * Follow up path and cultures. * Recheck hgb. She is amenable to transfusion if necessary. * Continue to mobilize. * GI/DVT prophylaxis.
[2018-05-12 11:16] LABS: Hemoglobin 7.2 g/dL (12.0-16.0)
--- NOTE | 2018-05-12 13:16 | PDOC.GSPN ---
Surgery Progress Note: Subj - Subjective Narrative: Feels more distended today Surgery Progress Note: Obj - Vital signs Vital signs: Vital Signs - Most Recent Temp Pulse Resp BP Pulse Ox 97.7 F 71 16 106/71 93 L 05/12/18 12:04 05/12/18 12:04 05/12/18 12:04 05/12/18 12:04 05/12/18 12:04 - Physical Exam General: no distress Cardiovascular: regular rate and rhythm Respiratory: clear to auscultation Abdomen: soft, positive bowel sounds, distended Surgery Progress Note: Results - Labs Result Diagrams: 05/12/18 10:55 05/12/18 05:19 Lab results: Laboratory Results - last 24 hr 05/12/18 05/12/18 05/12/18 05:19 05:19 10:55 WBC 10.5 RBC 2.45 L Hgb 6.8 L 7.2 L Hct 21.9 L 22.7 L MCV 89.3 MCH 27.9 MCHC 31.2 L RDW 13.5 Plt Count 564 H MPV 6.4 L Neutrophils % 65.2 Lymphocytes % 26.0 Monocytes % 7.9 Eosinophils % 0.6 Basophils % 0.3 Neutrophils # 6.8 H Lymphocytes # 2.7 Monocytes # 0.8 H Eosinophils # 0.1 Basophils # 0.0 Sodium 140 Potassium 4.3 Chloride 109 H Carbon Dioxide 24 Anion Gap 11 BUN 8 L Creatinine 0.49 L Estimated GFR (MDRD) Greater than 90 Glucose 84 Calcium 8.0 Phosphorus 2.4 Magnesium 1.6 Surgery Progress Note: A/P - Plan Plan: POD #2 -full liquid diet -transfuse with further drop in Hgb -Likely home or to rehab end of week.
[2018-05-12] MEDS: Enoxaparin Sodium 40 MG/0.4 ML SYRINGE SC SCH (21:32)
[2018-05-13] MEDS: fentaNYL Citrate/PF 2,000 MCG in Sodium Chloride 0.9% 60 ML IV PRN (05:13)
[2018-05-13] MEDS: MEROPENEM 1 GM/50 ML 1 GM in Premix Bag 1 BAG IVPB SCH ×3 (05:13→21:36)
[2018-05-13] MEDS: Sodium Chloride 0.9% 1,000 ML IV SCH ×2 (05:17→12:06)
[2018-05-13 07:02] LABS: #Eosinphils 0.1 thou/uL (0.0-0.7); #Lymphocytes 2.2 thou/uL (1.20-3.40); #Monocytes 0.8 thou/uL (0.11-0.59); #Neutrophils 6.2 thou/uL (1.40-6.50); %Basophils 0.2 % (0.0-1.0); %Lymphocytes 23.5 % (21.0-51.0); %Monocytes 8.5 % (0.0-10.0); %Neutrophils 66.7 % (42.0-75.0); Hemoglobin 7.3 g/dL (12.0-16.0); Mean Corpuscular HGB CONC 32.3 g/dL (32.0-36.0); Mean Corpuscular Hemoglobin 28.5 pg (27.0-31.0); Mean Corpuscular Volume 88.2 fL (78.0-98.0); Mean Platelet Volume 5.9 fL (7.4-10.4); Platelet Count 656 thou/uL (130-400); RBC Distribution Width 13.7 % (11.5-14.5); Red Blood Cell (RBC) Count 2.54 mill/uL (4.20-5.40); White Blood Cell (WBC) Count 9.3 thou/uL (4.8-10.8)
[2018-05-13 07:21] LABS: Anion Gap 14 mmol/L (10-20); BUN (Urea Nitrogen) 5 mg/dL (9.8-20.1); Calc. Creatinine Clearance 76 mL/min (70-130); Calcium 7.7 mg/dL (7.8-10.44); Carbon Dioxide 24 mmol/L (23-31); Chloride 105 mmol/L (98-107); Estimated GFR-MDRD Greater than 90; Glucose 66 mg/dL (83-110); Potassium 3.5 mmol/L (3.5-5.1); Sodium 139 mmol/L (136-145)
[2018-05-13] MEDS ORDERED: Clopidogrel Bisulfate 75 MG TAB ONE ×2 (08:03→08:26)
[2018-05-13] MEDS: Lisinopril 2.5 MG TAB PO SCH (08:18)
[2018-05-13] MEDS: Atorvastatin Calcium 40 MG TAB PO SCH (08:18)
[2018-05-13] MEDS: Famotidine/PF 20 mg/2ml Vial SLOW IVP SCH ×2 (08:19→19:41)
[2018-05-13] MEDS: Ondansetron PF 4 MG/2 ML Vial IVP PRN ×2 (11:09→19:40)
--- NOTE | 2018-05-13 13:59 | PDOC.PN ---
- Subjective Encounter Start Date: 05/13/18 Encounter Start Time: 11:15 Doing ok. Has had some nausea. No BM. - Objective Vital Signs & Weight: Vital Signs (12 hours) Temp Pulse Resp BP BP BP Pulse Ox 05/13/18 11:02 98.3 F 83 18 124/79 97 05/13/18 08:18 91 113/78 05/13/18 07:21 98.4 F 91 18 113/78 98 05/13/18 04:00 98.5 F 83 18 122/77 95 Weight Admit Weight 97 lb Weight 97 lb 0.054 oz I&O: 05/12/18 05/13/18 05/14/18 06:59 06:59 06:59 Intake Total 3150 2410 Output Total 1350 1300 Balance 1800 1110 Result Diagrams: 05/13/18 06:45 05/13/18 06:45 Phys Exam - Physical Examination Constitutional: NAD Respiratory: no wheezing, no rales, no rhonchi, clear to auscultation bilateral Cardiovascular: RRR, no significant murmur Gastrointestinal: soft, no distention, positive bowel sounds Musculoskeletal: no edema Neurological: non-focal Psychiatric: normal affect, A&O x 3 Dx/Plan (1) S/P colostomy Code(s): Z93.3 - COLOSTOMY STATUS Status: Acute (2) Diverticulitis of intestine with perforation and abscess Code(s): K57.80 - DVTRCLI OF INTEST, PART UNSP, W PERF AND ABSCESS W/O BLEED Status: Acute (3) S/P left colectomy Code(s): Z90.49 - ACQUIRED ABSENCE OF OTHER SPECIFIED PARTS OF DIGESTIVE TRACT Status: Acute (4) Protein-calorie malnutrition, moderate Code(s): E44.0 - MODERATE PROTEIN-CALORIE MALNUTRITION Status: Acute (5) CAD (coronary artery disease) Code(s): I25.10 - ATHSCL HEART DISEASE OF [place] CORONARY ARTERY W/O ANG PCTRS Status: Chronic Qualifiers: Comment: (6) Hypoalbuminemia due to protein-calorie malnutrition Code(s): E46 - UNSPECIFIED PROTEIN-CALORIE MALNUTRITION Status: Chronic (7) Dyslipidemia Code(s): E78.5 - HYPERLIPIDEMIA, UNSPECIFIED Status: Chronic Comment: Statin - Plan * Discussed the pathology findings. Patient indicated that she had prepared herself for a diagnosis of cancer and was much relieved. She was reassured that there is a good chance that she can have the reversal procedure at some point in the future. She was relieved by this news as well. * Advancing diet as tolerated. * Post-op per surg. * Continue abx.
--- NOTE | 2018-05-13 14:06 | PRG ---
DATE OF SERVICE: 05/13/2018 SUBJECTIVE: Ms. Santos has been in the hallway, walking today. She is complaining of nausea and abdominal distention. OBJECTIVE: VITAL SIGNS: She is afebrile. Her vital signs are stable. ABDOMEN: Distended, but there are bowel sounds present. There is no air or stool in her bag. Her wound is healing well. No evidence of infection or hernia. LABORATORY DATA: White blood cell count is 9, hemoglobin 7.3, and platelet count is 656. Creatinine 0.47, sodium 139, and potassium 3.5. Urine output is 1300. ASSESSMENT: Postop left colectomy, colostomy, chronic deconditioning. PLAN: She really needs to be walking more. We will keep her on liquids until her ileus resolves. I really expect more bowel function within the next few days. I encouraged her to be more active. Job ID: [id number]
[2018-05-13] MEDS: Enoxaparin Sodium 40 MG/0.4 ML SYRINGE SC SCH (19:42)
[2018-05-14] MEDS: Ondansetron PF 4 MG/2 ML Vial IVP PRN (04:42)
[2018-05-14] MEDS: Sodium Chloride 0.9% 1,000 ML IV SCH ×3 (05:12→22:58)
[2018-05-14] MEDS: MEROPENEM 1 GM/50 ML 1 GM in Premix Bag 1 BAG IVPB SCH ×3 (05:53→19:57)
--- NOTE | 2018-05-14 08:22 | PDOC.PN ---
- Subjective Encounter Start Date: 05/14/18 Encounter Start Time: 08:20 Had BM yesterday. Ostomy working. Had vomiting yesterday. Still feels nauseated this morning. Not much pain. Getting up, but feels very weak still. - Objective Vital Signs & Weight: Vital Signs (12 hours) Temp Pulse Resp BP Pulse Ox 05/14/18 04:45 98.5 F 82 19 121/75 95 05/13/18 23:52 96 14 113/76 95 Weight Admit Weight 97 lb Weight 97 lb 0.054 oz I&O: 05/13/18 05/14/18 05/15/18 06:59 06:59 06:59 Intake Total 2410 985 Output Total 1300 2572 Balance 1110 -1587 Result Diagrams: 05/13/18 06:45 05/13/18 06:45 Phys Exam - Physical Examination Constitutional: NAD Respiratory: no wheezing, no rales, no rhonchi, clear to auscultation bilateral Cardiovascular: RRR, no significant murmur, no rub Gastrointestinal: soft, non-tender, no distention, positive bowel sounds Wound looks good. Musculoskeletal: no edema Psychiatric: normal affect, A&O x 3 Skin: normal turgor Dx/Plan (1) Diverticulitis of intestine with perforation and abscess Code(s): K57.80 - DVTRCLI OF INTEST, PART UNSP, W PERF AND ABSCESS W/O BLEED Status: Acute (2) S/P colostomy Code(s): Z93.3 - COLOSTOMY STATUS Status: Acute (3) S/P left colectomy Code(s): Z90.49 - ACQUIRED ABSENCE OF OTHER SPECIFIED PARTS OF DIGESTIVE TRACT Status: Acute (4) Protein-calorie malnutrition, moderate Code(s): E44.0 - MODERATE PROTEIN-CALORIE MALNUTRITION Status: Acute (5) CAD (coronary artery disease) Code(s): I25.10 - ATHSCL HEART DISEASE OF [place] CORONARY ARTERY W/O ANG PCTRS Status: Chronic Qualifiers: Comment: (6) Hypoalbuminemia due to protein-calorie malnutrition Code(s): E46 - UNSPECIFIED PROTEIN-CALORIE MALNUTRITION Status: Chronic (7) Dyslipidemia Code(s): E78.5 - HYPERLIPIDEMIA, UNSPECIFIED Status: Chronic Comment: Statin (8) Nausea & vomiting Code(s): R11.2 - NAUSEA WITH VOMITING, UNSPECIFIED Status: Acute (9) Anemia Code(s): D64.9 - ANEMIA, UNSPECIFIED Status: Acute - Plan * Doing fairly well post-op. Bowels functioning. Nausea and weakness are primary post-op issues. * Recheck hemoglobin today. * Continue to ambulate as tolerated. * Discussed with CM. Will not need to return to the skilled facility for abx now that she has had the surgery. * Will likely need to have home health for ostomy care and PT.
[2018-05-14] MEDS: Lisinopril 2.5 MG TAB PO SCH (08:32)
[2018-05-14] MEDS: Famotidine/PF 20 mg/2ml Vial SLOW IVP SCH ×2 (08:32→19:57)
[2018-05-14] MEDS: Atorvastatin Calcium 40 MG TAB PO SCH (08:33)
[2018-05-14 09:42] LABS: Hemoglobin 6.8 g/dL (12.0-16.0)
[2018-05-14] MEDS ORDERED: Acetaminophen 1,000 MG in Premix Bag 1 BAG IVPB PRN (12:22)
[2018-05-14] MEDS ORDERED: Fentanyl 100 MCG/2 ML VIAL SLOW IVP PRN ×2 (12:22→12:26)
--- NOTE | 2018-05-14 12:49 | PRG ---
DATE OF SERVICE: 05/14/2018 SUBJECTIVE: Ms. Santos is not being super active. She still states she has nausea. She vomited at 4:30 this morning. She remains on a clear liquid diet. PHYSICAL EXAMINATION: VITAL SIGNS: She is afebrile. Her vital signs are stable. ABDOMEN: She has had good colostomy output today. Her abdomen is less distended with bowel sounds present. LABORATORY DATA: Her white blood cell count is 9. Hemoglobin is 6.8. Platelet count is 656. Normal differential. Creatinine is 0.47. Sodium 139. ASSESSMENT: 1. Postoperative left colectomy, colostomy. Hemoglobin is stable, but given her weakness, fatigue and lack of interest in the walking program, we will transfuse 1 unit. 2. For nutrition she has been 7 days, still not tolerating much liquids. We will start total parenteral nutrition. PLAN: For her to go to [facility] probably within the next few days as long her ileus resolves. Job ID: [id number]
[2018-05-14] MEDS: Enoxaparin Sodium 40 MG/0.4 ML SYRINGE SC SCH (19:57)
[2018-05-14] MEDS: SODIUM ACETATE IV SCH (22:38)
[2018-05-14] MEDS: POTASSIUM ACETATE IV SCH (22:38)
[2018-05-14] MEDS: [UNRECOGNIZED DRUG - OTHER] IV SCH (22:38)
[2018-05-15] MEDS: MEROPENEM 1 GM/50 ML 1 GM in Premix Bag 1 BAG IVPB SCH ×3 (05:22→19:45)
[2018-05-15 05:44] LABS: #Eosinphils 0.3 thou/uL (0.0-0.7); #Lymphocytes 2.3 thou/uL (1.20-3.40); #Monocytes 1.1 thou/uL (0.11-0.59); #Neutrophils 8.3 thou/uL (1.40-6.50); %Basophils 0.2 % (0.0-1.0); %Eosinophils 2.3 % (0.0-10.0); %Lymphocytes 19.1 % (21.0-51.0); %Monocytes 8.9 % (0.0-10.0); %Neutrophils 69.4 % (42.0-75.0); Hemoglobin 9.2 g/dL (12.0-16.0); Mean Corpuscular HGB CONC 33.1 g/dL (32.0-36.0); Mean Corpuscular Hemoglobin 28.9 pg (27.0-31.0); Mean Corpuscular Volume 87.5 fL (78.0-98.0); Mean Platelet Volume 5.7 fL (7.4-10.4); Platelet Count 680 thou/uL (130-400); RBC Distribution Width 13.7 % (11.5-14.5); Red Blood Cell (RBC) Count 3.18 mill/uL (4.20-5.40); White Blood Cell (WBC) Count 11.9 thou/uL (4.8-10.8)
[2018-05-15 05:55] LABS: Anion Gap 8 mmol/L (10-20); BUN (Urea Nitrogen) 6 mg/dL (9.8-20.1); Calc. Creatinine Clearance 60 mL/min (70-130); Calcium 7.7 mg/dL (7.8-10.44); Carbon Dioxide 26 mmol/L (23-31); Chloride 108 mmol/L (98-107); Estimated GFR-MDRD Greater than 90; Glucose 224 mg/dL (83-110); Potassium 3.1 mmol/L (3.5-5.1); Sodium 139 mmol/L (136-145)
[2018-05-15] MEDS ORDERED: Potassium Chloride 40 MEQ in Premix Bag 1 BAG IVPB SCH (07:45)
--- NOTE | 2018-05-15 07:58 | PQF ---
CLINICAL DOCUMENTATION IMPROVEMENT CLARIFICATION FORM: ICD-10 Updated PLEASE DO AN ADDENDUM TO THE PROGRESS NOTE WITH ANY DOCUMENTATION UPDATES OR ADDITIONS AND CARRY THROUGH TO DC SUMMARY. THANK YOU. DATE: 05/15 ATTN : DR. PADDY WATTS Please exercise your independent, professional judgment in responding to the clarification form. Clinical indicators are provided on the bottom of this form for your review. Please check appropriate box(s): [ ] Acute blood loss anemia [ x ] Post-op anemia related to acute blood loss [ ] Other diagnosis [ ] Unable to determine For continuity of documentation, please document condition throughout progress notes and discharge summary. Thank You. CLINICAL INDICATORS - SIGNS / SYMPTOMS / LABS H/H: 10.9/34.4 - 6.8/21.9 (05/08 - 05/14) PN 05/14 (STEFANIE): DX/PLAN: 9) ANEMIA, ACUTE; RECHECK HEMOGLOBIN TODAY RISK FACTORS: EXPLORATORY LAPAROTOMY, L COLECTOMY W/COLOSTOMY (05/10) MODERATE PROTEIN CALORIE MALNUTRITION TREATMENTS: SERIAL H/H LABS TRANSFUSION 1U [facility] (05/14) THANK YOU! Beatriz (This form is maintained as a part of the permanent medical record) 2014 [employer], [employer]. All Rights Reserved Beatriz Lawson RN, BSN [email or web address] Office: [phone] [facility]
[2018-05-15] MEDS: Lisinopril 2.5 MG TAB PO SCH (08:05)
[2018-05-15] MEDS: Atorvastatin Calcium 40 MG TAB PO SCH (08:06)
[2018-05-15] MEDS: Famotidine/PF 20 mg/2ml Vial SLOW IVP SCH ×2 (08:06→19:45)
[2018-05-15] MEDS: Potassium Chloride 20 MEQ in Premix Bag 1 BAG IVPB SCH ×2 (12:00→17:05)
[2018-05-15] MEDS ORDERED: Dextrose 50% Abboject 50 ML SYRINGE SLOW IVP PRN (12:31)
[2018-05-15] MEDS ORDERED: Dextrose 5% in Water 1,000 ML IV PRN (12:31)
[2018-05-15] MEDS: HumaLOG 300 UNITS/3 ML VIAL SC PRN ×2 (13:26→18:49)
--- NOTE | 2018-05-15 14:12 | PRG ---
DATE OF SERVICE: 05/15/2018 SUBJECTIVE: Ms. Santos remains weak. She is not getting out of bed much. She notes nausea, but she had not vomited in the last 24 hours. OBJECTIVE: VITAL SIGNS: She is afebrile. Vital signs are stable. ABDOMEN: Soft. Wounds are healing well. LABORATORY DATA: Her hemoglobin is now 9. Good urine output. Good stool output. ASSESSMENT: Postop left colectomy. Pathology shows only chronic diverticulitis, significant deconditioning, probably to shelter next week. PLAN: Encouraged ambulation over the weekend. We will stop TPN if she tolerates the soft diet and her nausea improves. Dr. Galvan covering for me this weekend. Job ID: [id number]
[2018-05-15] MEDS: Ondansetron PF 4 MG/2 ML Vial IVP PRN ×2 (15:30→22:33)
[2018-05-15] MEDS: Sodium Chloride 0.9% 1,000 ML IV SCH (19:42)
[2018-05-15] MEDS: Enoxaparin Sodium 40 MG/0.4 ML SYRINGE SC SCH (19:45)
--- NOTE | 2018-05-15 20:01 | PDOC.PN ---
- Subjective Encounter Start Date: 05/15/18 Encounter Start Time: 12:00 Still has some nausea, but not vomiting. Has good ostomy output. Minimal pain. - Objective Vital Signs & Weight: Vital Signs (12 hours) Temp Pulse Resp BP BP Pulse Ox 05/15/18 16:10 98.3 F 72 14 126/84 94 L 05/15/18 11:46 98.6 F 70 14 118/73 96 05/15/18 08:05 75 116/73 Weight Admit Weight 97 lb Weight 97 lb 0.054 oz Most Recent Monitor Data Heart Rate from ECG 72 NIBP 116/74 I&O: 05/14/18 05/15/18 05/16/18 06:59 06:59 06:59 Intake Total 985 1726 Output Total 2572 150 Balance -1587 1576 Result Diagrams: 05/15/18 05:25 05/15/18 05:25 Additional Labs: Accuchecks 05/15/18 05/15/18 05/15/18 18:03 12:06 05:41 POC Glucose 259 H 410 H 217 H Phys Exam - Physical Examination Constitutional: NAD Respiratory: no wheezing, no rales, no rhonchi, clear to auscultation bilateral Cardiovascular: RRR, no significant murmur Gastrointestinal: soft, no distention, positive bowel sounds Minimal TTP. Musculoskeletal: no edema Neurological: non-focal Psychiatric: normal affect, A&O x 3 Dx/Plan (1) Diverticulitis of intestine with perforation and abscess Code(s): K57.80 - DVTRCLI OF INTEST, PART UNSP, W PERF AND ABSCESS W/O BLEED Status: Acute (2) S/P colostomy Code(s): Z93.3 - COLOSTOMY STATUS Status: Acute (3) S/P left colectomy Code(s): Z90.49 - ACQUIRED ABSENCE OF OTHER SPECIFIED PARTS OF DIGESTIVE TRACT Status: Acute (4) Protein-calorie malnutrition, moderate Code(s): E44.0 - MODERATE PROTEIN-CALORIE MALNUTRITION Status: Acute (5) CAD (coronary artery disease) Code(s): I25.10 - ATHSCL HEART DISEASE OF [place] CORONARY ARTERY W/O ANG PCTRS Status: Chronic Qualifiers: Comment: (6) Hypoalbuminemia due to protein-calorie malnutrition Code(s): E46 - UNSPECIFIED PROTEIN-CALORIE MALNUTRITION Status: Chronic (7) Dyslipidemia Code(s): E78.5 - HYPERLIPIDEMIA, UNSPECIFIED Status: Chronic Comment: Statin (8) Nausea & vomiting Code(s): R11.2 - NAUSEA WITH VOMITING, UNSPECIFIED Status: Acute (9) Anemia Code(s): D64.9 - ANEMIA, UNSPECIFIED Status: Acute (10) Hyperglycemia Code(s): R73.9 - HYPERGLYCEMIA, UNSPECIFIED Status: Acute - Plan * Continue post-op recovery. * TPN ordered due to nausea and poor appetite. * Monitor hemoglobin. * Continue abx. * Sliding scale insulin for hyperglycemia related to TPN. * Patient is very deconditioned and the plan is to get her to a skilled facility. * Pepcid, lovenox.
[2018-05-15] MEDS: SODIUM ACETATE IV SCH (22:00)
[2018-05-15] MEDS: [UNRECOGNIZED DRUG - OTHER] IV SCH (22:00)
[2018-05-15] MEDS: POTASSIUM ACETATE IV SCH (22:00)
[2018-05-16] MEDS: MEROPENEM 1 GM/50 ML 1 GM in Premix Bag 1 BAG IVPB SCH ×3 (05:25→21:38)
[2018-05-16] MEDS: Ondansetron PF 4 MG/2 ML Vial IVP PRN (05:25)
[2018-05-16 06:20] LABS: ALT (SGPT) 12 U/L (8-55); AST (SGOT) 31 U/L (5-34); Albumin 2.3 g/dL (3.4-4.8); Alkaline Phosphatase 62 U/L (40-150); Anion Gap 10 mmol/L (10-20); BUN (Urea Nitrogen) 13 mg/dL (9.8-20.1); Bilirubin, Total 0.5 mg/dL (0.2-1.2); Calc. Creatinine Clearance 76 mL/min (70-130); Calcium 7.6 mg/dL (7.8-10.44); Carbon Dioxide 31 mmol/L (23-31); Chloride 103 mmol/L (98-107); Estimated GFR-MDRD Greater than 90; Globulin 3.4 g/dL (2.4-3.5); Glucose 130 mg/dL (83-110); Potassium 3.7 mmol/L (3.5-5.1); Protein, Total 5.7 g/dL (6.0-8.3); Sodium 140 mmol/L (136-145)
[2018-05-16 06:30] LABS: Band 8 % (5-11); Hemoglobin 9.6 g/dL (12.0-16.0); Lymphocytes 23 % (21-51); MDiff Complete? YES; Mean Corpuscular HGB CONC 33.2 g/dL (32.0-36.0); Mean Corpuscular Hemoglobin 28.9 pg (27.0-31.0); Mean Platelet Volume 5.8 fL (7.4-10.4); Metamyelocyte 1 % (0-0); Monocytes 6 % (0-10); Neutrophil 62 % (42-75); PLT Morphology Comment Appears Increased; Platelet Count 668 thou/uL (130-400); RBC Distribution Width 14.2 % (11.5-14.5); RBC Morphology Normal; Red Blood Cell (RBC) Count 3.33 mill/uL (4.20-5.40); White Blood Cell (WBC) Count 11.7 thou/uL (4.8-10.8)
[2018-05-16] MEDS ORDERED: HYDROcodone/Acetaminophen 10/325 mg Tablet PO PRN ×2 (07:51→08:10)
[2018-05-16] MEDS: Lisinopril 2.5 MG TAB PO SCH (08:43)
[2018-05-16] MEDS: Famotidine/PF 20 mg/2ml Vial SLOW IVP SCH ×2 (08:44→21:38)
[2018-05-16] MEDS: Atorvastatin Calcium 40 MG TAB PO SCH (08:44)
[2018-05-16] MEDS: traMADol HCl 50 MG TAB PO PRN ×2 (08:50→21:57)
--- NOTE | 2018-05-16 09:01 | PRG ---
DATE OF SERVICE: 05/16/2018 SUBJECTIVE: Ms. Santos actually feels better today. No nausea this morning. She did vomit a little bit last night. She has been advanced to GI soft diet. She is up and at the bedside today. PHYSICAL EXAMINATION: VITAL SIGNS: She is afebrile. Vital signs are stable. She has a colostomy output of 250-275 overnight. ABDOMEN: Soft, minimally distended. LABORATORY DATA: White cell count is 11, hemoglobin is 9.6. Creatinine 0.47. ASSESSMENT: Postop left colectomy for chronic diverticulitis, benign pathology. PLAN: Slow improvement for her deconditioning, likely to long term versus rehab next week. We will start weaning TPN. Job ID: [id number]
--- NOTE | 2018-05-16 18:00 | EKG ---
Test Reason : Blood Pressure : / mmHG Vent. Rate : 074 BPM Atrial Rate : 074 BPM P-R Int : 116 ms QRS Dur : 084 ms QT Int : 426 ms P-R-T Axes : -07 -16 -32 degrees QTc Int : 472 ms Normal sinus rhythm Inferior infarct , age undetermined Cannot rule out Anterior infarct , age undetermined Abnormal ECG Confirmed by INDY NAVAS, JERRICA ([id number]), editor school photograph EVELIN RIVERA ([id number]) on 05/16/2018 6:00:13 PM Referred By: Confirmed By:JERRICA PUTNAM MD
--- NOTE | 2018-05-16 19:38 | PDOC.PN ---
- Subjective Encounter Start Date: 05/16/18 Encounter Start Time: 10:15 Doing well overall. 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 Able to tolerate po's generally well. Good output from ostomy. - Objective Vital Signs & Weight: Vital Signs (12 hours) Temp Pulse Resp BP Pulse Ox 05/16/18 15:57 98.6 F 77 14 126/84 93 L 05/16/18 12:08 98.6 F 74 16 126/85 95 05/16/18 08:20 98.6 F 80 14 135/84 95 Weight Admit Weight 97 lb Weight 97 lb 0.054 oz Most Recent Monitor Data Heart Rate from ECG 72 NIBP 116/74 I&O: 05/15/18 05/16/18 05/17/18 06:59 06:59 06:59 Intake Total 1726 1400 1020 Output Total 150 75 250 Balance 1576 1325 770 Result Diagrams: 05/16/18 05:50 05/16/18 05:50 Additional Labs: Accuchecks 05/16/18 05/16/18 05/16/18 15:45 10:36 05:23 POC Glucose 128 H 133 H 177 H Phys Exam - Physical Examination Constitutional: NAD Respiratory: no wheezing, no rales, no rhonchi, clear to auscultation bilateral Cardiovascular: RRR, no significant murmur, no rub Gastrointestinal: soft, non-tender, positive bowel sounds Musculoskeletal: no edema Psychiatric: normal affect, A&O x 3 Dx/Plan (1) Diverticulitis of intestine with perforation and abscess Code(s): K57.80 - DVTRCLI OF INTEST, PART UNSP, W PERF AND ABSCESS W/O BLEED Status: Acute (2) S/P colostomy Code(s): Z93.3 - COLOSTOMY STATUS Status: Acute (3) S/P left colectomy Code(s): Z90.49 - ACQUIRED ABSENCE OF OTHER SPECIFIED PARTS OF DIGESTIVE TRACT Status: Acute (4) Protein-calorie malnutrition, moderate Code(s): E44.0 - MODERATE PROTEIN-CALORIE MALNUTRITION Status: Acute (5) CAD (coronary artery disease) Code(s): I25.10 - ATHSCL HEART DISEASE OF [place] CORONARY ARTERY W/O ANG PCTRS Status: Chronic Qualifiers: Comment: (6) Hypoalbuminemia due to protein-calorie malnutrition Code(s): E46 - UNSPECIFIED PROTEIN-CALORIE MALNUTRITION Status: Chronic (7) Dyslipidemia Code(s): E78.5 - HYPERLIPIDEMIA, UNSPECIFIED Status: Chronic Comment: Statin (8) Nausea & vomiting Code(s): R11.2 - NAUSEA WITH VOMITING, UNSPECIFIED Status: Acute (9) Anemia Code(s): D64.9 - ANEMIA, UNSPECIFIED Status: Acute (10) Hyperglycemia Code(s): R73.9 - HYPERGLYCEMIA, UNSPECIFIED Status: Acute Comment: secondary to the TPN. SSI. - Plan * Encouraging ambulation. * Weaning TPN. * Will need some longterm at discharge. * Monitor hemoglobin.
[2018-05-16] MEDS: Enoxaparin Sodium 40 MG/0.4 ML SYRINGE SC SCH (21:38)
[2018-05-16] MEDS: POTASSIUM ACETATE IV SCH (21:49)
[2018-05-16] MEDS: [UNRECOGNIZED DRUG - OTHER] IV SCH (21:49)
[2018-05-16] MEDS: SODIUM ACETATE IV SCH (21:49)
[2018-05-17] MEDS: traMADol HCl 50 MG TAB PO PRN ×2 (05:31→20:32)
[2018-05-17] MEDS: MEROPENEM 1 GM/50 ML 1 GM in Premix Bag 1 BAG IVPB SCH ×3 (05:31→21:52)
[2018-05-17 05:50] LABS: #Eosinphils 0.4 thou/uL (0.0-0.7); #Lymphocytes 2.8 thou/uL (1.20-3.40); #Monocytes 0.9 thou/uL (0.11-0.59); #Neutrophils 7.4 thou/uL (1.40-6.50); %Basophils 0.2 % (0.0-1.0); %Eosinophils 3.7 % (0.0-10.0); %Lymphocytes 24.3 % (21.0-51.0); %Monocytes 7.6 % (0.0-10.0); %Neutrophils 64.2 % (42.0-75.0); Hemoglobin 9.1 g/dL (12.0-16.0); Mean Corpuscular HGB CONC 33.1 g/dL (32.0-36.0); Mean Corpuscular Hemoglobin 28.9 pg (27.0-31.0); Mean Corpuscular Volume 87.4 fL (78.0-98.0); Mean Platelet Volume 5.9 fL (7.4-10.4); Platelet Count 591 thou/uL (130-400); RBC Distribution Width 14.5 % (11.5-14.5); Red Blood Cell (RBC) Count 3.15 mill/uL (4.20-5.40); White Blood Cell (WBC) Count 11.5 thou/uL (4.8-10.8)
[2018-05-17 06:11] LABS: ALT (SGPT) 13 U/L (8-55); AST (SGOT) 32 U/L (5-34); Albumin 2.2 g/dL (3.4-4.8); Alkaline Phosphatase 68 U/L (40-150); Anion Gap 8 mmol/L (10-20); BUN (Urea Nitrogen) 11 mg/dL (9.8-20.1); Bilirubin, Total 0.6 mg/dL (0.2-1.2); Calc. Creatinine Clearance 75 mL/min (70-130); Calcium 7.7 mg/dL (7.8-10.44); Carbon Dioxide 29 mmol/L (23-31); Chloride 104 mmol/L (98-107); Estimated GFR-MDRD Greater than 90; Globulin 3.1 g/dL (2.4-3.5); Glucose 81 mg/dL (83-110); Magnesium 1.7 mg/dL (1.6-2.6); Phosphorus 2.3 mg/dL (2.3-4.7); Potassium 3.9 mmol/L (3.5-5.1); Protein, Total 5.3 g/dL (6.0-8.3); Sodium 137 mmol/L (136-145)
[2018-05-17] MEDS: Lisinopril 2.5 MG TAB PO SCH (08:38)
[2018-05-17] MEDS: Atorvastatin Calcium 40 MG TAB PO SCH (08:38)
[2018-05-17] MEDS: Famotidine/PF 20 mg/2ml Vial SLOW IVP SCH ×2 (08:39→20:31)
[2018-05-17] MEDS: Enoxaparin Sodium 40 MG/0.4 ML SYRINGE SC SCH (20:23)
--- NOTE | 2018-05-17 21:39 | PDOC.PN ---
- Subjective Encounter Start Date: 05/17/18 Encounter Start Time: 13:10 Doing better today. Nausea has not completely resolved and appetite is not normal, but better overall. No pain. - Objective Vital Signs & Weight: Vital Signs (12 hours) Temp Pulse Resp BP Pulse Ox 05/17/18 15:00 97.7 F 78 18 104/70 97 05/17/18 11:46 97.6 F 79 18 107/71 97 Weight Admit Weight 97 lb Weight 97 lb 0.054 oz Most Recent Monitor Data Heart Rate from ECG 72 NIBP 116/74 I&O: 05/16/18 05/17/18 05/18/18 06:59 06:59 06:59 Intake Total 1400 1020 1240 Output Total 75 250 245 Balance 1325 770 995 Result Diagrams: 05/17/18 05:34 05/17/18 05:34 Additional Labs: Accuchecks 05/17/18 05/17/18 05/17/18 15:11 11:46 05:30 POC Glucose 92 108 90 Phys Exam - Physical Examination Constitutional: NAD Respiratory: no wheezing, no rales, no rhonchi, clear to auscultation bilateral Cardiovascular: RRR, no significant murmur Gastrointestinal: soft, non-tender, no distention, positive bowel sounds Ostomy. Musculoskeletal: no edema Neurological: non-focal Psychiatric: normal affect, A&O x 3 Dx/Plan (1) Diverticulitis of intestine with perforation and abscess Code(s): K57.80 - DVTRCLI OF INTEST, PART UNSP, W PERF AND ABSCESS W/O BLEED Status: Acute (2) S/P colostomy Code(s): Z93.3 - COLOSTOMY STATUS Status: Acute (3) S/P left colectomy Code(s): Z90.49 - ACQUIRED ABSENCE OF OTHER SPECIFIED PARTS OF DIGESTIVE TRACT Status: Acute (4) Protein-calorie malnutrition, moderate Code(s): E44.0 - MODERATE PROTEIN-CALORIE MALNUTRITION Status: Acute (5) CAD (coronary artery disease) Code(s): I25.10 - ATHSCL HEART DISEASE OF [place] CORONARY ARTERY W/O ANG PCTRS Status: Chronic Qualifiers: Comment: (6) Hypoalbuminemia due to protein-calorie malnutrition Code(s): E46 - UNSPECIFIED PROTEIN-CALORIE MALNUTRITION Status: Chronic (7) Dyslipidemia Code(s): E78.5 - HYPERLIPIDEMIA, UNSPECIFIED Status: Chronic Comment: Statin (8) Nausea & vomiting Code(s): R11.2 - NAUSEA WITH VOMITING, UNSPECIFIED Status: Acute (9) Anemia Code(s): D64.9 - ANEMIA, UNSPECIFIED Status: Acute (10) Hyperglycemia Code(s): R73.9 - HYPERGLYCEMIA, UNSPECIFIED Status: Acute Comment: secondary to the TPN. SSI. - Plan * Off TPN. Tolerating some po's, but still modest. * Continue abx. * Ambulate. * Discussed disposition. Still recommend jail.
[2018-05-18] MEDS: MEROPENEM 1 GM/50 ML 1 GM in Premix Bag 1 BAG IVPB SCH ×2 (05:45→14:25)
[2018-05-18 06:16] LABS: #Eosinphils 0.1 thou/uL (0.0-0.7); #Lymphocytes 1.7 thou/uL (1.20-3.40); #Monocytes 0.4 thou/uL (0.11-0.59); #Neutrophils 3.2 thou/uL (1.40-6.50); %Basophils 0.2 % (0.0-1.0); %Lymphocytes 30.9 % (21.0-51.0); %Monocytes 7.8 % (0.0-10.0); %Neutrophils 59.1 % (42.0-75.0); Hemoglobin 11.8 g/dL (12.0-16.0); Mean Corpuscular HGB CONC 32.9 g/dL (32.0-36.0); Mean Corpuscular Hemoglobin 28.9 pg (27.0-31.0); Mean Corpuscular Volume 87.8 fL (78.0-98.0); Mean Platelet Volume 6.3 fL (7.4-10.4); Platelet Count 377 thou/uL (130-400); RBC Distribution Width 15.3 % (11.5-14.5); Red Blood Cell (RBC) Count 4.09 mill/uL (4.20-5.40); White Blood Cell (WBC) Count 5.4 thou/uL (4.8-10.8)
[2018-05-18 06:29] LABS: ALT (SGPT) 12 U/L (8-55); AST (SGOT) 25 U/L (5-34); Albumin 2.1 g/dL (3.4-4.8); Alkaline Phosphatase 66 U/L (40-150); Anion Gap 8 mmol/L (10-20); BUN (Urea Nitrogen) 9 mg/dL (9.8-20.1); Bilirubin, Total 0.7 mg/dL (0.2-1.2); Calc. Creatinine Clearance 78 mL/min (70-130); Calcium 7.4 mg/dL (7.8-10.44); Carbon Dioxide 26 mmol/L (23-31); Chloride 106 mmol/L (98-107); Estimated GFR-MDRD Greater than 90; Globulin 2.9 g/dL (2.4-3.5); Glucose 69 mg/dL (83-110); Potassium 3.6 mmol/L (3.5-5.1); Sodium 136 mmol/L (136-145)
[2018-05-18] MEDS: Lisinopril 2.5 MG TAB PO SCH (09:16)
[2018-05-18] MEDS: Famotidine/PF 20 mg/2ml Vial SLOW IVP SCH (09:17)
[2018-05-18] MEDS: Atorvastatin Calcium 40 MG TAB PO SCH (09:17)
[2018-05-18 12:34] VITALS: BP 115/75; TEMP 98.7
--- NOTE | 2018-05-18 15:05 | PDOC.PN ---
- Subjective Encounter Start Date: 05/18/18 Encounter Start Time: 11:40 Doing much better. She is able to tolerate po's and nausea is resolved. No pain. - Objective Vital Signs & Weight: Vital Signs (12 hours) Temp Pulse Resp BP BP Pulse Ox 05/18/18 11:40 98.7 F 74 18 115/75 97 05/18/18 09:16 78 125/81 05/18/18 07:41 97.8 F 78 20 125/81 99 Weight Admit Weight 97 lb Weight 97 lb 0.054 oz Most Recent Monitor Data Heart Rate from ECG 72 NIBP 116/74 I&O: 05/17/18 05/18/18 05/19/18 06:59 06:59 06:59 Intake Total 1020 1240 360 Output Total 250 245 650 Balance 770 995 -290 Result Diagrams: 05/18/18 05:45 05/18/18 05:45 Additional Labs: Accuchecks 05/18/18 05/18/18 05/18/18 11:41 06:35 05:54 POC Glucose 133 H 85 69 L 05/17/18 05/17/18 20:37 15:11 POC Glucose 121 H 92 Phys Exam - Physical Examination Constitutional: NAD Respiratory: no wheezing, no rales, no rhonchi Cardiovascular: RRR, no significant murmur, no rub Gastrointestinal: soft, non-tender, no distention, positive bowel sounds Left-sided ostomy. Good output. Incision clean and dry. Musculoskeletal: no edema Neurological: non-focal Dx/Plan (1) Diverticulitis of intestine with perforation and abscess Code(s): K57.80 - DVTRCLI OF INTEST, PART UNSP, W PERF AND ABSCESS W/O BLEED Status: Acute (2) S/P colostomy Code(s): Z93.3 - COLOSTOMY STATUS Status: Acute (3) S/P left colectomy Code(s): Z90.49 - ACQUIRED ABSENCE OF OTHER SPECIFIED PARTS OF DIGESTIVE TRACT Status: Acute (4) Protein-calorie malnutrition, moderate Code(s): E44.0 - MODERATE PROTEIN-CALORIE MALNUTRITION Status: Acute (5) CAD (coronary artery disease) Code(s): I25.10 - ATHSCL HEART DISEASE OF [place] CORONARY ARTERY W/O ANG PCTRS Status: Chronic Qualifiers: Comment: (6) Hypoalbuminemia due to protein-calorie malnutrition Code(s): E46 - UNSPECIFIED PROTEIN-CALORIE MALNUTRITION Status: Chronic (7) Dyslipidemia Code(s): E78.5 - HYPERLIPIDEMIA, UNSPECIFIED Status: Chronic Comment: Statin (8) Nausea & vomiting Code(s): R11.2 - NAUSEA WITH VOMITING, UNSPECIFIED Status: Acute (9) Anemia Code(s): D64.9 - ANEMIA, UNSPECIFIED Status: Acute (10) Hyperglycemia Code(s): R73.9 - HYPERGLYCEMIA, UNSPECIFIED Status: Resolved Comment: secondary to the TPN. SSI. - Plan * Much improved. Discussed with Dr. Quevedo. No need for ongoing abx. * OK to discharge to [facility].
--- NOTE | 2018-05-18 15:33 | PRG ---
DATE OF SERVICE: 05/18/2018 SUBJECTIVE: Ms. Santos feels much better today. She is tolerating GI soft diet. OBJECTIVE: VITAL SIGNS: She is afebrile. Vital signs are stable. ABDOMEN: Her abdomen wound is healing well. There is no evidence of infection. She has stool in her bag. Her ostomy sites viable. ASSESSMENT: Postop left colectomy, colostomy for chronic diverticulitis with benign path. PLAN: To [facility] soon. Job ID: [id number]
== END 2018-05-18 15:26 | DRG 330 ==
LOC: ERS 11:24 → SURG A 13:49
PROVIDERS: ADMIT Student in an Organized Health Care Education/Training Program; ATTEND Student in an Organized Health Care Education/Training Program
PROC: 0DTG0ZZ Resection of Left Large Intestine, Open Approach (ICD-10-PCS; principal; 2018-05-10)
PROC: 0D1L0Z4 Bypass Transverse Colon to Cutaneous, Open Approach (ICD-10-PCS; 2018-05-10)
PROC: 0DTJ0ZZ Resection of Appendix, Open Approach (ICD-10-PCS; 2018-05-10)
PROC: 30233N1 Transfusion of Nonautologous Red Blood Cells into Peripheral Vein, Percutaneous Approach (ICD-10-PCS; 2018-05-12)
PROC: 3E0336Z Introduction of Nutritional Substance into Peripheral Vein, Percutaneous Approach (ICD-10-PCS; 2018-05-15)
DX: K57.20 Diverticulitis of large intestine with perforation and abscess without bleeding (principal); E44.0 Moderate protein-calorie malnutrition; Z68.1 Body mass index [BMI] 19.9 or less, adult; N39.0 Urinary tract infection, site not specified; K56.7 Ileus, unspecified; D62 Acute posthemorrhagic anemia; I25.10 Atherosclerotic heart disease of native coronary artery without angina pectoris; D63.8 Anemia in other chronic diseases classified elsewhere; I10 Essential (primary) hypertension; E78.5 Hyperlipidemia, unspecified; I25.2 Old myocardial infarction; Z87.891 Personal history of nicotine dependence; Z79.02 Long term (current) use of antithrombotics/antiplatelets
CPT/HCPCS: 36415; 36416; 36430; 51701; 51798; 80048; 80053; 81001; 81003; 81015; 82553; 83605; 83690; 83735; 84100; 84484; 85014; 85018; 85025; 86850; 86900; 86901; 87040; 87086; 88304; 88305; 88307; 93005; 96361; 96365; 96375; 99213; 99214; G0463; G8978-GP-CM; G8979-GP-CK; J0131; J1100; J1170; J1650; J2001; J2185; J2270; J2405; J2550; J2704; J3010; J3475; J3480; J7050; P9016; S0028

== ENCOUNTER 2018-07-01 06:01 | Day surgery (SDC) | payer MEDICARE ==
[2018-06-30 08:41] VITALS: BMI 18.0
[2018-07-01] MEDS ORDERED: cefTRIAXone\\ROCEPHIN 2 GM in Sodium Chloride 0.9% 100 ML IVPB SCH (06:45)
[2018-07-01] MEDS ORDERED: Fentanyl 100 MCG/2 ML VIAL ONE (06:57)
[2018-07-01 06:59] LABS: Hemoglobin 10.9 g/dL (12.0-16.0); Mean Corpuscular HGB CONC 31.7 g/dL (32.0-36.0); Mean Corpuscular Hemoglobin 29.6 pg (27.0-31.0); Mean Corpuscular Volume 93.2 fL (78.0-98.0); Mean Platelet Volume 7.1 fL (7.4-10.4); Platelet Count 233 thou/uL (130-400); Red Blood Cell (RBC) Count 3.69 mill/uL (4.20-5.40); White Blood Cell (WBC) Count 5.6 thou/uL (4.8-10.8)
[2018-07-01 07:05] LABS: PTT 30.1 SEC (22.9-36.1)
[2018-07-01 07:07] LABS: Anion Gap 12 mmol/L (10-20); BUN (Urea Nitrogen) 14 mg/dL (9.8-20.1); Calc. Creatinine Clearance 58 mL/min (70-130); Calcium 8.5 mg/dL (7.8-10.44); Carbon Dioxide 23 mmol/L (23-31); Chloride 112 mmol/L (98-107); Estimated GFR-MDRD 87; Glucose 80 mg/dL (83-110); Potassium 4.1 mmol/L (3.5-5.1); Sodium 143 mmol/L (136-145)
[2018-07-01] MEDS ORDERED: Iothalamate Meglumine 60% 50 ML VIAL FS ONE (07:17)
[2018-07-01] MEDS ORDERED: Oxybutynin 5 MG TAB ONE (08:33)
[2018-07-01] MEDS ORDERED: Phenazopyridine HCl 97.5 MG TABLET ONE (08:33)
--- NOTE | 2018-07-01 08:56 | RAD ---
RETROGRADE URETEROGRAM: History: Ureteral stricture. FINDINGS: Intraoperative fluoroscopy was provided for retrograde study as performed by Dr. Monreal. Spot fl uoroscopic images show contrast opacification of a dilated left renal collecting system. Final image shows double pigtail left ureteral stent in good radiographic position. POS: LILLY
--- NOTE | 2018-07-01 12:04 | OP ---
DATE OF PROCEDURE: 07/01/2018 PREOPERATIVE DIAGNOSES: 1. 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 2. Status post cysto, left retrograde, 4.8 double-J ureteral stent. POSTOPERATIVE DIAGNOSES: 1. 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 2. Status post cysto, left retrograde 4.8 double-J ureteral stent. PROCEDURES PERFORMED: Cystoscopy, left retrograde pyelogram, dilation of midureteral stricture, and 6 x 26 double-J ureteral stent replacement. ANESTHESIA: LMA. COMPLICATIONS: None apparent. DISPOSITION: To recovery room in stable condition. SPECIMEN: None. INDICATIONS FOR PROCEDURE AND HISTORY: Ms. Santos is a pleasant 72-year-old female, whom I had seen as an inpatient consultation back on April 21, 2018. She presented with pelvic abscess, perforated diverticulitis, and pelvic phlegmon. She subsequently underwent diverting colostomy on May 08, 2018, by General Surgery, Dr. Quevedo, and continues to have a diverting colostomy. She presents today for restaging retrograde pyelogram and dilation of ureteral stricture. Indications reviewed, risks and complications including, but not limited to bleeding, pain, infection, injury to adjacent organs, urosepsis, and recurrent stricture formation was reviewed with her in detail and all questions were answered to her satisfaction and she desired to proceed. DESCRIPTION OF PROCEDURE: After an informed consent was signed, the patient was taken to the operating room, placed in a dorsal lithotomy position with the genital area prepped and draped in the usual surgical sterile fashion. A 21-[place] cystoscope was utilized for cystoscopy. Bilateral SHAMA hose SCDs and broad- spectrum antibiotics were provided. Upon entering the bladder, clear urine was noted. The pre-existing ureteral stent had some redundant coil in the bladder. There was mild/minimal incrustation of the ureteral stent and this was removed to the level of the meatus with graspers. A 0.35 Sensor wire was then able to be passed without any issues to the level of the left upper pole renal pelvis through the existing stent, stent was then subsequently completely removed. At this time, we passed a 10- [place] dual-lumen access sheath to the level of the mid ureteral stricture just below the level of the SI joint. Previous retrograde pyelogram demonstrated a stricture high-grade approximately 1.5 cm in length. Retrograde pyelogram demonstrated resolution of proximal tortuosity. She does have some chronic dilated calices. We passed a 4 cm 12-[place] [employer] balloon dilator to the level of the pre-existing stricture. Retrograde pyelogram did demonstrate significant improvement of her ureteral stricture. However, given the dense and high-degree nature of the ureteral stricture in the past, I did make the decision to dilate for optimal treatment. We held the pressure at maximum atmospheric pressure at 20 for approximately 3 to 5 minutes. Subsequently, the balloon was completely deflated. The area of dilatation was well traversing the pre-existing ureteral stent, ureteral stricture. The balloon was then subsequently deflated and a 6 x 26 double-J ureteral stent passed without significant issues. The bladder was completely emptied. She tolerated the procedure well and transported to the recovery room in stable condition. She will be discharged to continue with Ditropan 1 p.o. q.8 hours p.r.n. for bladder spasms, Colace, she was provided Omnicef 300 mg 1 p.o. b.i.d. for 5 days and also provided a prescription to start Omnicef 1 p.o. b.i.d. morning of the stent pull. She will follow up with me on July 16 for 2-week interval stent exchange. My plan is to perform an IVP a few week interval to re-stage her ureteral stricture. Job ID: [id number] MTDD
[2018-07-01] MEDS ORDERED: Glycopyrrolate 0.2 MG/ML 5 ML SYRINGE ONE (15:30)
[2018-07-01] MEDS ORDERED: Lidocaine 1% PF 5 ML VIAL ONE (15:30)
[2018-07-01] MEDS ORDERED: PHENYLEPHRINE-NS 100 MCG/ML 10 ML SYRINGE ONE (15:30)
[2018-07-01] MEDS ORDERED: Ondansetron PF 4 MG/2 ML Vial ONE (15:30)
[2018-07-01] MEDS ORDERED: PROPOFOL 200 MG/20 ML VIAL ONE (15:30)
[2018-07-01] MEDS ORDERED: ePHEDrine/0.9% NaCl/PF SYRINGE 50 mg/10 ml ONE (15:30)
--- NOTE | 2018-07-03 20:47 | EKG ---
Test Reason : PREOP Blood Pressure : / mmHG Vent. Rate : 058 BPM Atrial Rate : 058 BPM P-R Int : 128 ms QRS Dur : 084 ms QT Int : 472 ms P-R-T Axes : 019 013 -24 degrees QTc Int : 463 ms Sinus bradycardia Low voltage QRS T wave abnormality, consider inferior ischemia Abnormal ECG When compared with ECG of 08-MAY-2018 11:48, Minimal criteria for Anterior infarct are no longer Present Criteria for Inferior infarct are no longer Present T wave inversion no longer evident in Anterior leads Confirmed by Shawn HYATT ([id number]) on 07/03/2018 8:47:00 PM Referred By: KRISTI Confirmed By:Shawn HYATT
== END 2018-07-01 10:24 | disposition home or self-care (01) ==
LOC: SDC 06:01
PROVIDERS: ATTEND Urology
PROC: 0T778DZ Dilation of Left Ureter with Intraluminal Device, Via Natural or Artificial Opening Endoscopic (ICD-10-PCS; principal; 2018-07-01)
PROC: 0TP98DZ Removal of Intraluminal Device from Ureter, Via Natural or Artificial Opening Endoscopic (ICD-10-PCS; 2018-07-01)
PROC: 0T778DZ Dilation of Left Ureter with Intraluminal Device, Via Natural or Artificial Opening Endoscopic (ICD-10-PCS; 2018-07-01)
DX: K57.20 Diverticulitis of large intestine with perforation and abscess without bleeding (principal); N73.9 Female pelvic inflammatory disease, unspecified; N13.5 Crossing vessel and stricture of ureter without hydronephrosis; I25.10 Atherosclerotic heart disease of native coronary artery without angina pectoris; I25.2 Old myocardial infarction; E78.5 Hyperlipidemia, unspecified; I10 Essential (primary) hypertension; K59.00 Constipation, unspecified; Z79.82 Long term (current) use of aspirin; Z79.899 Other long term (current) drug therapy; Z90.49 Acquired absence of other specified parts of digestive tract; Z93.3 Colostomy status
CPT/HCPCS: 52332; 52344; 74420; 80048; 85027; 85610; 85730; 93005; C1758; C1769; 36415; 93010; J0696; J2001; J2405; J2704; J3010; J7050; Q9961

== ENCOUNTER 2020-11-03 11:47 | Inpatient (IN) | payer MEDICARE, MEDICAID ==
[2020-11-03 13:27] LABS: #Basophils 0.1 thou/uL (0.0-0.2); #Eosinphils 0.1 thou/uL (0.0-0.7); #Lymphocytes 3.2 thou/uL (1.20-3.40); #Monocytes 0.7 thou/uL (0.11-0.59); #Neutrophils 4.9 thou/uL (1.40-6.50); %Basophils 1.6 % (0.0-1.0); %Eosinophils 0.7 % (0.0-10.0); %Lymphocytes 35.5 % (21.0-51.0); %Monocytes 7.6 % (0.0-10.0); %Neutrophils 54.7 % (42.0-75.0); Hemoglobin 15.6 g/dL (12.0-16.0); Mean Corpuscular HGB CONC 32.1 g/dL (32.0-36.0); Mean Corpuscular Hemoglobin 29.4 pg (27.0-31.0); Mean Corpuscular Volume 91.6 fL (78.0-98.0); Mean Platelet Volume 6.8 fL (7.4-10.4); Platelet Count 357 thou/uL (130-400); RBC Distribution Width 12.4 % (11.5-14.5); Red Blood Cell (RBC) Count 5.31 mill/uL (4.20-5.40); White Blood Cell (WBC) Count 8.9 thou/uL (4.8-10.8)
[2020-11-03 13:37] LABS: ALT (SGPT) 23 U/L (8-55); AST (SGOT) 24 U/L (5-34); Albumin 4.4 g/dL (3.4-4.8); Alkaline Phosphatase 88 U/L (40-110); Anion Gap 19 mmol/L (10-20); BUN (Urea Nitrogen) 15 mg/dL (9.8-20.1); Bilirubin, Total 0.7 mg/dL (0.2-1.2); CK (CPK) 81 U/L (29-168); Calc. Creatinine Clearance 0 mL/min (70-130); Calcium 9.5 mg/dL (7.8-10.44); Carbon Dioxide 21 mmol/L (23-31); Chloride 105 mmol/L (98-107); Globulin 3.3 g/dL (2.4-3.5); Glucose 85 mg/dL (83-110); Potassium 4.7 mmol/L (3.5-5.1); Protein, Total 7.7 g/dL (5.8-8.1); Sodium 140 mmol/L (136-145)
[2020-11-03 14:02] LABS: PTT 32.6 sec (22.9-36.1); Prothrombin Time 12.8 sec (12.0-14.7)
[2020-11-03] MEDS ORDERED: Aspirin Chewable 81 MG TAB ONE (14:17)
[2020-11-03] MEDS ORDERED: hydrALAZINE 20 MG/ML VIAL SLOW IVP PRN (15:42)
[2020-11-03 17:54] VITALS: BMI 25.5
[2020-11-03] MEDS ORDERED: Rosuvastatin 20 MG TAB PO SCH (21:00)
[2020-11-04 03:26] LABS: SARS-CoV-2 NAA Rapid Test Not Detected (NotDetected)
[2020-11-04 06:12] LABS: Cardiac Risk 4.7 (Less than 4.5)
[2020-11-04] MEDS: Aspirin 81 mg Enteric Coated Tablet PO SCH (08:50)
[2020-11-04] MEDS: Clopidogrel Bisulfate 75 MG TAB PO SCH (08:51)
[2020-11-04] MEDS: Atorvastatin Calcium 40 MG TAB PO SCH (21:21)
[2020-11-05] MEDS: Aspirin 81 mg Enteric Coated Tablet PO SCH (10:20)
[2020-11-05] MEDS: Clopidogrel Bisulfate 75 MG TAB PO SCH (10:20)
[2020-11-05] MEDS: Atorvastatin Calcium 40 MG TAB PO SCH (20:32)
[2020-11-06] MEDS: Clopidogrel Bisulfate 75 MG TAB PO SCH (08:46)
[2020-11-06] MEDS: Aspirin 81 mg Enteric Coated Tablet PO SCH (08:47)
[2020-11-06] MEDS ORDERED: Bisacodyl 10 MG SUPP PR PRN (18:52)
[2020-11-06] MEDS ORDERED: Polyethylene Glycol 3350 17 GM Packet PO SCH (19:00)
[2020-11-06] MEDS ORDERED: Docusate 100 MG CAP PO SCH (19:00)
[2020-11-06] MEDS: Docusate 100 MG CAP PO SCH (21:05)
[2020-11-06] MEDS: Atorvastatin Calcium 40 MG TAB PO SCH (21:05)
[2020-11-07] MEDS: Aspirin 81 mg Enteric Coated Tablet PO SCH (08:32)
[2020-11-07] MEDS: Docusate 100 MG CAP PO SCH ×2 (08:32→21:49)
[2020-11-07] MEDS: Polyethylene Glycol 3350 17 GM Packet PO SCH (08:32)
[2020-11-07] MEDS: Clopidogrel Bisulfate 75 MG TAB PO SCH (08:32)
[2020-11-07] MEDS: Atorvastatin Calcium 40 MG TAB PO SCH (21:48)
[2020-11-08] MEDS: Polyethylene Glycol 3350 17 GM Packet PO SCH (08:29)
[2020-11-08] MEDS: Clopidogrel Bisulfate 75 MG TAB PO SCH (08:29)
[2020-11-08] MEDS: Aspirin 81 mg Enteric Coated Tablet PO SCH (08:29)
[2020-11-08] MEDS: Docusate 100 MG CAP PO SCH ×2 (08:29→20:55)
[2020-11-08] MEDS: Atorvastatin Calcium 40 MG TAB PO SCH (20:55)
[2020-11-09] MEDS: Polyethylene Glycol 3350 17 GM Packet PO SCH (09:40)
[2020-11-09] MEDS: Aspirin 81 mg Enteric Coated Tablet PO SCH (09:40)
[2020-11-09] MEDS: Clopidogrel Bisulfate 75 MG TAB PO SCH (09:40)
[2020-11-09] MEDS: Docusate 100 MG CAP PO SCH ×2 (09:40→20:45)
[2020-11-09 11:24] VITALS: BP 118/89; TEMP 98.5
[2020-11-09] MEDS: Atorvastatin Calcium 40 MG TAB PO SCH (20:45)
== END 2020-11-09 21:03 | DRG 65 ==
LOC: ERS 11:47 → 2SE 14:17
PROVIDERS: ADMIT Internal Medicine; ATTEND Emergency Medicine
DX: I63.9 Cerebral infarction, unspecified (principal); G81.91 Hemiplegia, unspecified affecting right dominant side; K57.80 Diverticulitis of intestine, part unspecified, with perforation and abscess without bleeding; I10 Essential (primary) hypertension; E78.5 Hyperlipidemia, unspecified; I25.10 Atherosclerotic heart disease of native coronary artery without angina pectoris; I73.9 Peripheral vascular disease, unspecified; R73.9 Hyperglycemia, unspecified; D63.8 Anemia in other chronic diseases classified elsewhere; Z20.822 Contact with and (suspected) exposure to COVID-19; F17.210 Nicotine dependence, cigarettes, uncomplicated; I25.2 Old myocardial infarction; Z95.5 Presence of coronary angioplasty implant and graft; Z79.82 Long term (current) use of aspirin; Z79.02 Long term (current) use of antithrombotics/antiplatelets; Z91.14 Patient's other noncompliance with medication regimen
CPT/HCPCS: 36415; 70450; 70551; 80053; 80061; 82550; 84484; 85025; 85610; 85730; 87635; 93005; 93306; 93880; 95712; 95819; 95957; U0002; U0003; U0005

== ENCOUNTER 2020-12-01 19:07 | Observation (INO) | payer MEDICARE, MEDICAID ==
[2020-12-01 19:55] LABS: #Basophils 0.1 thou/uL (0.0-0.2); #Eosinphils 0.2 thou/uL (0.0-0.7); #Monocytes 0.8 thou/uL (0.11-0.59); #Neutrophils 4.6 thou/uL (1.40-6.50); %Basophils 0.6 % (0.0-1.0); %Eosinophils 2.6 % (0.0-10.0); %Lymphocytes 41.1 % (21.0-51.0); %Monocytes 7.9 % (0.0-10.0); %Neutrophils 47.8 % (42.0-75.0); Hemoglobin 12.4 g/dL (12.0-16.0); Mean Corpuscular HGB CONC 32.7 g/dL (32.0-36.0); Mean Corpuscular Hemoglobin 30.6 pg (27.0-31.0); Mean Corpuscular Volume 93.6 fL (78.0-98.0); Mean Platelet Volume 6.2 fL (7.4-10.4); Platelet Count 337 thou/uL (130-400); RBC Distribution Width 12.2 % (11.5-14.5); Red Blood Cell (RBC) Count 4.04 mill/uL (4.20-5.40); White Blood Cell (WBC) Count 9.7 thou/uL (4.8-10.8)
[2020-12-01 20:15] LABS: ALT (SGPT) 51 U/L (8-55); AST (SGOT) 26 U/L (5-34); Albumin 3.4 g/dL (3.4-4.8); Alkaline Phosphatase 89 U/L (40-110); Anion Gap 12 mmol/L (10-20); BUN (Urea Nitrogen) 13 mg/dL (9.8-20.1); Bilirubin, Total 0.3 mg/dL (0.2-1.2); Calc. Creatinine Clearance 0 mL/min (70-130); Calcium 8.4 mg/dL (7.8-10.44); Carbon Dioxide 22 mmol/L (23-31); Chloride 109 mmol/L (98-107); Globulin 3.1 g/dL (2.4-3.5); Glucose 98 mg/dL (83-110); Potassium 4.4 mmol/L (3.5-5.1); Protein, Total 6.5 g/dL (5.8-8.1); Sodium 139 mmol/L (136-145)
[2020-12-01 20:22] LABS: Bilirubin Negative (Negative); Blood, Urine Negative (Negative); Glucose, Urine (Dipstick) Normal (Negative); Ketone, Urine Negative (Negative); Leukocyte Negative Leu/uL (Negative); Nitrite Negative (Negative); Protein, Urine (Dipstick) Negative (Neg-Trace); Specific Gravity, Urine 1.025 (1.002-1.036); Urobilinogen Normal mg/dL (Less than 2); pH, Urine 7.5 (5.0-9.0)
[2020-12-01 20:27] LABS: Clarity Hazy (Clear)
[2020-12-01] MEDS ORDERED: Ondansetron PF 4 MG/2 ML Vial IVP PRN (22:45)
[2020-12-01] MEDS ORDERED: Acetaminophen 325 MG TAB PO PRN (22:45)
[2020-12-02 00:46] VITALS: BMI 25.0
[2020-12-02 06:48] LABS: #Basophils 0.1 thou/uL (0.0-0.2); #Eosinphils 0.2 thou/uL (0.0-0.7); #Lymphocytes 2.8 thou/uL (1.20-3.40); #Monocytes 0.8 thou/uL (0.11-0.59); #Neutrophils 4.2 thou/uL (1.40-6.50); %Eosinophils 2.9 % (0.0-10.0); %Lymphocytes 34.3 % (21.0-51.0); %Monocytes 10.2 % (0.0-10.0); %Neutrophils 51.6 % (42.0-75.0); Hemoglobin 12.3 g/dL (12.0-16.0); Mean Corpuscular HGB CONC 33.3 g/dL (32.0-36.0); Mean Corpuscular Hemoglobin 31.2 pg (27.0-31.0); Mean Corpuscular Volume 93.9 fL (78.0-98.0); Mean Platelet Volume 6.4 fL (7.4-10.4); Platelet Count 308 thou/uL (130-400); RBC Distribution Width 12.1 % (11.5-14.5); Red Blood Cell (RBC) Count 3.95 mill/uL (4.20-5.40); White Blood Cell (WBC) Count 8.2 thou/uL (4.8-10.8)
[2020-12-02 07:04] LABS: Anion Gap 12 mmol/L (10-20); BUN (Urea Nitrogen) 11 mg/dL (9.8-20.1); Calc. Creatinine Clearance 72 mL/min (70-130); Calcium 8.6 mg/dL (7.8-10.44); Carbon Dioxide 23 mmol/L (23-31); Chloride 108 mmol/L (98-107); Glucose 97 mg/dL (83-110); Potassium 4.5 mmol/L (3.5-5.1); Sodium 138 mmol/L (136-145)
[2020-12-02] MEDS: Famotidine 20 MG TAB PO SCH ×2 (08:27→20:35)
[2020-12-02 15:58] LABS: SARS-CoV-2 PCR by NAA Not Detected (NotDetected)
[2020-12-02] MEDS: Atorvastatin Calcium 40 MG TAB PO SCH (20:36)
[2020-12-03 06:01] LABS: #Eosinphils 0.2 thou/uL (0.0-0.7); #Monocytes 0.7 thou/uL (0.11-0.59); %Basophils 0.5 % (0.0-1.0); %Eosinophils 2.5 % (0.0-10.0); %Lymphocytes 33.4 % (21.0-51.0); %Neutrophils 55.7 % (42.0-75.0); Hemoglobin 12.4 g/dL (12.0-16.0); Mean Corpuscular HGB CONC 33.7 g/dL (32.0-36.0); Mean Corpuscular Hemoglobin 31.5 pg (27.0-31.0); Mean Corpuscular Volume 93.4 fL (78.0-98.0); Mean Platelet Volume 6.3 fL (7.4-10.4); Platelet Count 292 thou/uL (130-400); RBC Distribution Width 12.1 % (11.5-14.5); Red Blood Cell (RBC) Count 3.94 mill/uL (4.20-5.40)
[2020-12-03 06:23] LABS: Anion Gap 13 mmol/L (10-20); BUN (Urea Nitrogen) 14 mg/dL (9.8-20.1); Calc. Creatinine Clearance 66 mL/min (70-130); Calcium 8.7 mg/dL (7.8-10.44); Carbon Dioxide 23 mmol/L (23-31); Chloride 108 mmol/L (98-107); Glucose 99 mg/dL (83-110); Potassium 4.4 mmol/L (3.5-5.1); Sodium 140 mmol/L (136-145)
[2020-12-03] MEDS: Aspirin Chewable 81 MG TAB PO SCH (08:40)
[2020-12-03] MEDS: Clopidogrel Bisulfate 75 MG TAB PO SCH (08:40)
[2020-12-03] MEDS: Famotidine 20 MG TAB PO SCH ×2 (08:40→21:15)
[2020-12-03] MEDS: Atorvastatin Calcium 40 MG TAB PO SCH (21:15)
[2020-12-04] MEDS: Famotidine 20 MG TAB PO SCH ×2 (08:16→21:10)
[2020-12-04] MEDS: Clopidogrel Bisulfate 75 MG TAB PO SCH (08:16)
[2020-12-04] MEDS: Aspirin Chewable 81 MG TAB PO SCH (08:16)
[2020-12-04] MEDS: Atorvastatin Calcium 40 MG TAB PO SCH (21:10)
[2020-12-05] MEDS: Aspirin Chewable 81 MG TAB PO SCH (09:01)
[2020-12-05] MEDS: Clopidogrel Bisulfate 75 MG TAB PO SCH (09:01)
[2020-12-05] MEDS: Famotidine 20 MG TAB PO SCH ×2 (09:01→21:58)
[2020-12-05] MEDS: Atorvastatin Calcium 40 MG TAB PO SCH (21:57)
[2020-12-06] MEDS: Famotidine 20 MG TAB PO SCH (08:40)
[2020-12-06] MEDS: Aspirin Chewable 81 MG TAB PO SCH (08:40)
[2020-12-06] MEDS: Clopidogrel Bisulfate 75 MG TAB PO SCH (08:40)
[2020-12-06 16:31] VITALS: BP 108/69; TEMP 98.2
== END 2020-12-06 16:42 ==
LOC: ERS 19:07 → T4-B 22:29
PROVIDERS: ADMIT Internal Medicine; ATTEND Internal Medicine
DX: I69.351 Hemiplegia and hemiparesis following cerebral infarction affecting right dominant side (principal); I69.322 Dysarthria following cerebral infarction; I10 Essential (primary) hypertension; I25.10 Atherosclerotic heart disease of native coronary artery without angina pectoris; I73.9 Peripheral vascular disease, unspecified; D53.9 Nutritional anemia, unspecified; Z87.891 Personal history of nicotine dependence; Z79.02 Long term (current) use of antithrombotics/antiplatelets; Z79.82 Long term (current) use of aspirin; Z79.899 Other long term (current) drug therapy; Z20.822 Contact with and (suspected) exposure to COVID-19
CPT/HCPCS: 51701; 71045; 80048 ×2; 80053; 81003; 83605; 85025 ×3; 87086; 93005; 94760; 97110 ×4; 97116 ×3; 97139 ×4; 97530 ×3; 99285; G0378 ×6; U0003; U0005; 36415

== ENCOUNTER 2022-10-09 12:42 | Inpatient (IN) | payer OTHER ==
[~2022-10-09 12:42] MED LIST: Iopamidol-370 76% 500 ML MDV (1 ML CHARGE) ONE
[2022-10-09 13:52] LABS: Bilirubin Negative (Negative); Blood, Urine Negative (Negative); Clarity Clear (Clear); Glucose, Urine (Dipstick) Normal (Negative); Ketone, Urine Negative (Negative); Leukocyte Negative Leu/uL (Negative); Nitrite Negative (Negative); Protein, Urine (Dipstick) 10 mg/dL (Neg-Trace); Specific Gravity, Urine 1.029 (1.002-1.036); Urobilinogen Normal mg/dL (Less than 2)
[2022-10-09 13:58] LABS: #Basophils 0.1 thou/uL (0.0-0.2); #Eosinphils 0.1 thou/uL (0.0-0.7); #Lymphocytes 3.8 thou/uL (1.20-3.40); #Monocytes 1.3 thou/uL (0.11-0.59); #Neutrophils 8.7 thou/uL (1.40-6.50); %Basophils 0.4 % (0.0-1.0); %Eosinophils 0.7 % (0.0-10.0); %Monocytes 9.2 % (0.0-10.0); %Neutrophils 62.6 % (42.0-75.0); Hemoglobin 15.9 g/dL (12.0-16.0); Mean Corpuscular Hemoglobin 29.9 pg (27.0-31.0); Mean Corpuscular Volume 93.4 fl (78.0-98.0); Mean Platelet Volume 6.9 fL (7.4-10.4); Platelet Count 379 10x3/uL (130-400); Red Blood Cell (RBC) Count 5.33 mill/uL (4.20-5.40); White Blood Cell (WBC) Count 13.9 10x3/uL (4.8-10.8)
[2022-10-09 14:22] LABS: ALT (SGPT) 37 U/L (8-55); AST (SGOT) 30 U/L (5-34); Alkaline Phosphatase 101 U/L (40-110); Anion Gap 17 mmol/L (10-20); BUN (Urea Nitrogen) 18 mg/dL (9.8-20.1); Bilirubin, Total 0.4 mg/dL (0.2-1.2); Calc. Creatinine Clearance 0 mL/min (70-130); Calcium 9.3 mg/dL (7.8-10.44); Carbon Dioxide 22 mmol/L (23-31); Chloride 107 mmol/L (98-107); Estimated GFR 76; Globulin 3.7 g/dL (2.4-3.5); Glucose 117 mg/dL (83-110); Potassium 4.2 mmol/L (3.5-5.1); Protein, Total 7.7 g/dL (5.8-8.1); Sodium 142 mmol/L (136-145)
[2022-10-09] MEDS ORDERED: Magnesium 2 GM/50 ML BAG (IN WATER) ONE (15:36)
[2022-10-09] MEDS ORDERED: Ipratropium/Albuterol 3 ML NEB ONE (15:36)
[2022-10-09] MEDS ORDERED: predniSONE 20 MG TAB ONE (15:36)
[2022-10-09] MEDS ORDERED: cefTRIAXone (ROCEPHIN) 2 GM VIAL ONE (16:42)
[2022-10-09] MEDS ORDERED: Azithromycin 500 MG VIAL ONE (16:42)
[2022-10-09] MEDS ORDERED: Ondansetron PF 4 MG/2 ML Vial IVP PRN (16:56)
[2022-10-09] MEDS ORDERED: Acetaminophen 325 MG TAB PO PRN (16:56)
[2022-10-09] MEDS: Ipratropium/Albuterol 3 ML NEB NEB SCH ×2 (22:55→23:01)
[2022-10-09] MEDS: Metoprolol Tartrate 25 MG TAB PO SCH (23:42)
[2022-10-09] MEDS: Docusate 100 MG CAP PO SCH (23:42)
[2022-10-09] MEDS: Atorvastatin Calcium 40 MG TAB PO SCH (23:42)
[2022-10-09] MEDS: methylPREDNISolone Sod Succ 40 MG VIAL IVP SCH (23:43)
[2022-10-10 02:16] VITALS: BMI 27.3
[2022-10-10] MEDS: Ipratropium/Albuterol 3 ML NEB NEB SCH ×6 (03:15→23:51)
[2022-10-10] MEDS: methylPREDNISolone Sod Succ 40 MG VIAL IVP SCH ×4 (06:28→23:47)
[2022-10-10 07:34] LABS: #Lymphocytes 1.6 thou/uL (1.20-3.40); #Monocytes 0.2 thou/uL (0.11-0.59); #Neutrophils 10.3 thou/uL (1.40-6.50); %Basophils 0.3 % (0.0-1.0); %Eosinophils 0.2 % (0.0-10.0); %Lymphocytes 12.7 % (21.0-51.0); %Monocytes 1.7 % (0.0-10.0); %Neutrophils 85.2 % (42.0-75.0); Hemoglobin 14.2 g/dL (12.0-16.0); Mean Corpuscular HGB CONC 31.6 g/dL (32.0-36.0); Mean Corpuscular Hemoglobin 29.5 pg (27.0-31.0); Mean Corpuscular Volume 93.5 fl (78.0-98.0); Mean Platelet Volume 6.9 fL (7.4-10.4); Platelet Count 366 10x3/uL (130-400); RBC Distribution Width 11.9 % (11.5-14.5); Red Blood Cell (RBC) Count 4.82 mill/uL (4.20-5.40); White Blood Cell (WBC) Count 12.1 10x3/uL (4.8-10.8)
[2022-10-10 08:00] LABS: Anion Gap 16 mmol/L (10-20); BUN (Urea Nitrogen) 11 mg/dL (9.8-20.1); Calc. Creatinine Clearance 66 mL/min (70-130); Calcium 9.1 mg/dL (7.8-10.44); Carbon Dioxide 20 mmol/L (23-31); Chloride 108 mmol/L (98-107); Estimated GFR 78; Glucose 185 mg/dL (83-110); Potassium 4.1 mmol/L (3.5-5.1); Sodium 140 mmol/L (136-145)
[2022-10-10] MEDS: Docusate 100 MG CAP PO SCH ×2 (08:44→20:09)
[2022-10-10] MEDS: Clopidogrel Bisulfate 75 MG TAB PO SCH (08:44)
[2022-10-10] MEDS: Aspirin Chewable 81 MG TAB PO SCH (08:44)
[2022-10-10] MEDS: Metoprolol Tartrate 25 MG TAB PO SCH ×2 (08:44→20:09)
[2022-10-10] MEDS: cefTRIAXone\\ROCEPHIN 1 GM in Sodium Chloride 0.9% 100 ML IVPB SCH (16:24)
[2022-10-10] MEDS: Azithromycin 500 MG in Sodium Chloride 0.9% 250 ML 250 ML IVPB SCH (17:00)
[2022-10-10] MEDS: Atorvastatin Calcium 40 MG TAB PO SCH (20:09)
[2022-10-11] MEDS: Ipratropium/Albuterol 3 ML NEB NEB SCH ×6 (03:43→23:31)
[2022-10-11] MEDS: methylPREDNISolone Sod Succ 40 MG VIAL IVP SCH ×2 (05:48→11:50)
[2022-10-11 07:18] LABS: Anion Gap 12 mmol/L (10-20); BUN (Urea Nitrogen) 16 mg/dL (9.8-20.1); Calc. Creatinine Clearance 66 mL/min (70-130); Calcium 8.7 mg/dL (7.8-10.44); Carbon Dioxide 21 mmol/L (23-31); Chloride 110 mmol/L (98-107); Estimated GFR 79; Glucose 209 mg/dL (83-110); Hemoglobin 13.1 g/dL (12.0-16.0); Mean Corpuscular HGB CONC 31.7 g/dL (32.0-36.0); Mean Corpuscular Hemoglobin 29.9 pg (27.0-31.0); Mean Corpuscular Volume 94.1 fl (78.0-98.0); Platelet Count 365 10x3/uL (130-400); Potassium 4.2 mmol/L (3.5-5.1); RBC Distribution Width 11.9 % (11.5-14.5); Red Blood Cell (RBC) Count 4.38 mill/uL (4.20-5.40); Sodium 139 mmol/L (136-145); White Blood Cell (WBC) Count 21.2 10x3/uL (4.8-10.8)
[2022-10-11] MEDS: Docusate 100 MG CAP PO SCH ×2 (08:29→20:24)
[2022-10-11] MEDS: Aspirin Chewable 81 MG TAB PO SCH (08:29)
[2022-10-11] MEDS: Clopidogrel Bisulfate 75 MG TAB PO SCH (08:29)
[2022-10-11] MEDS: Metoprolol Tartrate 25 MG TAB PO SCH ×2 (08:30→20:24)
[2022-10-11 09:44] LABS: Band 22 % (5-11); Lymphocytes 7 % (21-51); MDiff Complete? YES; Monocytes 3 % (0-10); Neutrophil 68 % (42-75); Platelet Morphology Comment Appears Adequate; RBC Morphology Normal
[2022-10-11 10:40] LABS: SARS-CoV-2 NAA Rapid Test Not Detected (NotDetected)
[2022-10-11] MEDS: Azithromycin 500 MG in Sodium Chloride 0.9% 250 ML 250 ML IVPB SCH (17:18)
[2022-10-11] MEDS: cefTRIAXone\\ROCEPHIN 1 GM in Sodium Chloride 0.9% 100 ML IVPB SCH (17:18)
[2022-10-11] MEDS: Mometasone/Formoterol 200/5 60 PUFF INH SCH (18:25)
[2022-10-11] MEDS: Atorvastatin Calcium 40 MG TAB PO SCH (20:24)
[2022-10-12] MEDS: Ipratropium/Albuterol 3 ML NEB NEB SCH ×2 (02:00→08:49)
[2022-10-12 07:38] LABS: #Eosinphils 0.1 thou/uL (0.0-0.7); #Lymphocytes 2.4 thou/uL (1.20-3.40); #Monocytes 1.4 thou/uL (0.11-0.59); #Neutrophils 12.8 thou/uL (1.40-6.50); %Eosinophils 0.3 % (0.0-10.0); %Lymphocytes 14.3 % (21.0-51.0); %Monocytes 8.3 % (0.0-10.0); %Neutrophils 77.1 % (42.0-75.0); Hemoglobin 12.3 g/dL (12.0-16.0); Mean Corpuscular HGB CONC 31.5 g/dL (32.0-36.0); Mean Corpuscular Hemoglobin 29.8 pg (27.0-31.0); Mean Corpuscular Volume 94.4 fl (78.0-98.0); Mean Platelet Volume 6.8 fL (7.4-10.4); Platelet Count 336 10x3/uL (130-400); RBC Distribution Width 12.1 % (11.5-14.5); Red Blood Cell (RBC) Count 4.13 mill/uL (4.20-5.40); White Blood Cell (WBC) Count 16.5 10x3/uL (4.8-10.8)
[2022-10-12 07:57] LABS: Hemoglobin A1c 6.5 % (4.0-6.0)
[2022-10-12 07:59] LABS: ALT (SGPT) 23 U/L (8-55); AST (SGOT) 15 U/L (5-34); Albumin 3.1 g/dL (3.4-4.8); Alkaline Phosphatase 107 U/L (40-110); Anion Gap 12 mmol/L (10-20); BUN (Urea Nitrogen) 13 mg/dL (9.8-20.1); Bilirubin, Direct 0.1 mg/dL (0.1-0.3); Bilirubin, Total 0.2 mg/dL (0.2-1.2); Calc. Creatinine Clearance 73 mL/min (70-130); Calcium 8.3 mg/dL (7.8-10.44); Carbon Dioxide 22 mmol/L (23-31); Cardiac Risk 2.8 (Less than 4.5); Chloride 111 mmol/L (98-107); Cholesterol 96 mg/dl (< 200 Desired); Estimated GFR 90; Glucose 223 mg/dL (83-110); HDL Cholesterol 34 mg/dL (>60 Neg Risk); LDL Cholesterol, Calculated 45 mg/dL; Potassium 3.7 mmol/L (3.5-5.1); Protein, Total 6.1 g/dL (5.8-8.1); Sodium 141 mmol/L (136-145); Triglycerides 86 mg/dL (Less than 150)
[2022-10-12] MEDS: Clopidogrel Bisulfate 75 MG TAB PO SCH (08:46)
[2022-10-12] MEDS: Docusate 100 MG CAP PO SCH ×2 (08:47→21:40)
[2022-10-12] MEDS: Aspirin Chewable 81 MG TAB PO SCH (08:47)
[2022-10-12] MEDS: predniSONE 50 MG TAB PO SCH (08:47)
[2022-10-12] MEDS: Metoprolol Tartrate 25 MG TAB PO SCH ×2 (08:47→21:40)
[2022-10-12] MEDS: Mometasone/Formoterol 200/5 60 PUFF INH SCH ×2 (08:50→18:35)
[2022-10-12] MEDS ORDERED: Dextrose 5% in Water 1,000 ML IV PRN (09:22)
[2022-10-12] MEDS ORDERED: HumaLOG 300 UNITS/3 ML VIAL SC PRN (09:22)
[2022-10-12] MEDS ORDERED: Dextrose 50% Abboject 50 ML SYRINGE SLOW IVP PRN (09:22)
[2022-10-12] MEDS: Ipratropium 200 Puff Oral Inhaler INH SCH ×4 (10:59→22:46)
[2022-10-12] MEDS: Albuterol 200 PUFF (6.7GM INHALER) INH SCH ×4 (10:59→22:45)
[2022-10-12] MEDS: cefTRIAXone\\ROCEPHIN 1 GM in Sodium Chloride 0.9% 100 ML IVPB SCH (16:26)
[2022-10-12] MEDS: Azithromycin 500 MG in Sodium Chloride 0.9% 250 ML 250 ML IVPB SCH (17:57)
[2022-10-12 18:21] LABS: Troponin I 0.014 ng/mL (< 0.028)
[2022-10-12] MEDS: Atorvastatin Calcium 40 MG TAB PO SCH (21:40)
[2022-10-13] MEDS: Albuterol 200 PUFF (6.7GM INHALER) INH SCH ×6 (02:26→22:29)
[2022-10-13] MEDS: Ipratropium 200 Puff Oral Inhaler INH SCH ×6 (02:26→22:32)
[2022-10-13 05:54] LABS: Band 3 % (5-11); Eosinophils 1 % (0-10); Hemoglobin 13.8 g/dL (12.0-16.0); Lymphocytes 44 % (21-51); MDiff Complete? YES; Mean Corpuscular HGB CONC 32.3 g/dL (32.0-36.0); Mean Corpuscular Hemoglobin 31.4 pg (27.0-31.0); Mean Corpuscular Volume 97.1 fl (78.0-98.0); Mean Platelet Volume 7.1 fL (7.4-10.4); Monocytes 5 % (0-10); Neutrophil 47 % (42-75); Platelet Count 277 10x3/uL (130-400); Platelet Morphology Comment Appears Adequate; RBC Distribution Width 12.4 % (11.5-14.5); RBC Morphology Normal; White Blood Cell (WBC) Count 13.9 10x3/uL (4.8-10.8)
[2022-10-13] MEDS: Mometasone/Formoterol 200/5 60 PUFF INH SCH ×2 (07:28→19:52)
[2022-10-13] MEDS: Metoprolol Tartrate 25 MG TAB PO SCH ×2 (10:02→20:43)
[2022-10-13] MEDS: Docusate 100 MG CAP PO SCH ×2 (10:02→20:43)
[2022-10-13] MEDS: Clopidogrel Bisulfate 75 MG TAB PO SCH (10:02)
[2022-10-13] MEDS: Aspirin Chewable 81 MG TAB PO SCH (10:03)
[2022-10-13] MEDS: predniSONE 50 MG TAB PO SCH (10:03)
[2022-10-13 10:49] LABS: Anion Gap 15 mmol/L (10-20); BUN (Urea Nitrogen) 15 mg/dL (9.8-20.1); Calc. Creatinine Clearance 73 mL/min (70-130); Calcium 8.5 mg/dL (7.8-10.44); Carbon Dioxide 23 mmol/L (23-31); Chloride 107 mmol/L (98-107); Estimated GFR 90; Glucose 89 mg/dL (83-110); Potassium 3.8 mmol/L (3.5-5.1); Sodium 141 mmol/L (136-145)
[2022-10-13 10:51] LABS: Troponin I Less than 0.010 ng/mL (< 0.028)
[2022-10-13] MEDS: cefTRIAXone\\ROCEPHIN 1 GM in Sodium Chloride 0.9% 100 ML IVPB SCH (19:30)
[2022-10-13] MEDS: Azithromycin 500 MG in Sodium Chloride 0.9% 250 ML 250 ML IVPB SCH (20:37)
[2022-10-13] MEDS: Atorvastatin Calcium 40 MG TAB PO SCH (20:43)
[2022-10-14] MEDS: Albuterol 200 PUFF (6.7GM INHALER) INH SCH ×5 (02:46→18:50)
[2022-10-14] MEDS: Ipratropium 200 Puff Oral Inhaler INH SCH ×4 (02:48→14:02)
[2022-10-14 05:21] LABS: #Eosinphils 0.1 thou/uL (0.0-0.7); #Lymphocytes 2.8 thou/uL (1.20-3.40); #Neutrophils 12.1 thou/uL (1.40-6.50); %Eosinophils 0.4 % (0.0-10.0); %Lymphocytes 17.5 % (21.0-51.0); %Monocytes 6.2 % (0.0-10.0); %Neutrophils 75.9 % (42.0-75.0); Hemoglobin 15.3 g/dL (12.0-16.0); Mean Corpuscular HGB CONC 34.1 g/dL (32.0-36.0); Mean Corpuscular Hemoglobin 31.7 pg (27.0-31.0); Mean Platelet Volume 6.7 fL (7.4-10.4); Platelet Count 323 10x3/uL (130-400); RBC Distribution Width 12.2 % (11.5-14.5); Red Blood Cell (RBC) Count 4.83 mill/uL (4.20-5.40)
[2022-10-14] MEDS: Mometasone/Formoterol 200/5 60 PUFF INH SCH ×2 (07:23→18:51)
[2022-10-14 07:37] LABS: Anion Gap 14 mmol/L (10-20); BUN (Urea Nitrogen) 19 mg/dL (9.8-20.1); Calc. Creatinine Clearance 73 mL/min (70-130); Calcium 8.1 mg/dL (7.8-10.44); Carbon Dioxide 23 mmol/L (23-31); Chloride 105 mmol/L (98-107); Estimated GFR 90; Glucose 122 mg/dL (83-110); Magnesium 2.1 mg/dL (1.6-2.6); Potassium 4.1 mmol/L (3.5-5.1); Sodium 138 mmol/L (136-145)
[2022-10-14] MEDS ORDERED: Regadenoson 0.4 MG/5 ML SYRINGE ONE (08:42)
[2022-10-14] MEDS: Aspirin Chewable 81 MG TAB PO SCH (12:01)
[2022-10-14] MEDS: predniSONE 50 MG TAB PO SCH (12:01)
[2022-10-14] MEDS: Clopidogrel Bisulfate 75 MG TAB PO SCH (12:02)
[2022-10-14] MEDS: Metoprolol Tartrate 25 MG TAB PO SCH ×2 (12:02→22:08)
[2022-10-14] MEDS: Docusate 100 MG CAP PO SCH ×2 (12:02→22:08)
[2022-10-14] MEDS ORDERED: Ipratropium 200 Puff Oral Inhaler INH PRN (13:56)
[2022-10-14] MEDS: Azithromycin 500 MG in Sodium Chloride 0.9% 250 ML 250 ML IVPB SCH (17:02)
[2022-10-14] MEDS: cefTRIAXone\\ROCEPHIN 1 GM in Sodium Chloride 0.9% 100 ML IVPB SCH (17:02)
[2022-10-14] MEDS: Atorvastatin Calcium 40 MG TAB PO SCH (22:08)
[2022-10-15 04:56] LABS: #Basophils 0.1 thou/uL (0.0-0.2); #Eosinphils 0.1 thou/uL (0.0-0.7); #Lymphocytes 2.6 thou/uL (1.20-3.40); %Basophils 0.5 % (0.0-1.0); %Eosinophils 0.5 % (0.0-10.0); %Lymphocytes 16.6 % (21.0-51.0); %Monocytes 6.1 % (0.0-10.0); %Neutrophils 76.4 % (42.0-75.0); Hemoglobin 13.9 g/dL (12.0-16.0); Mean Corpuscular Hemoglobin 30.5 pg (27.0-31.0); Mean Corpuscular Volume 92.4 fl (78.0-98.0); Platelet Count 311 10x3/uL (130-400); RBC Distribution Width 12.2 % (11.5-14.5); Red Blood Cell (RBC) Count 4.55 mill/uL (4.20-5.40); White Blood Cell (WBC) Count 15.7 10x3/uL (4.8-10.8)
[2022-10-15 05:11] LABS: Anion Gap 15 mmol/L (10-20); BUN (Urea Nitrogen) 20 mg/dL (9.8-20.1); Calc. Creatinine Clearance 74 mL/min (70-130); Calcium 8.3 mg/dL (7.8-10.44); Carbon Dioxide 21 mmol/L (23-31); Chloride 108 mmol/L (98-107); Estimated GFR 90; Glucose 136 mg/dL (83-110); Potassium 4.1 mmol/L (3.5-5.1); Sodium 140 mmol/L (136-145)
[2022-10-15] MEDS: Mometasone/Formoterol 200/5 60 PUFF INH SCH ×2 (07:35→19:12)
[2022-10-15] MEDS: Ipratropium 200 Puff Oral Inhaler INH SCH ×3 (07:35→19:12)
[2022-10-15] MEDS: Albuterol 200 PUFF (6.7GM INHALER) INH SCH ×3 (07:36→19:11)
[2022-10-15] MEDS: Docusate 100 MG CAP PO SCH ×2 (10:07→21:38)
[2022-10-15] MEDS: Aspirin Chewable 81 MG TAB PO SCH (10:07)
[2022-10-15] MEDS: Clopidogrel Bisulfate 75 MG TAB PO SCH (10:07)
[2022-10-15] MEDS: predniSONE 50 MG TAB PO SCH (10:22)
[2022-10-15] MEDS: Metoprolol Tartrate 25 MG TAB PO SCH ×2 (10:23→21:38)
[2022-10-15] MEDS: Atorvastatin Calcium 40 MG TAB PO SCH (21:38)
[2022-10-15] MEDS: Cefdinir 300 MG CAP PO SCH (21:38)
[2022-10-16 06:26] LABS: #Eosinphils 0.1 thou/uL (0.0-0.7); #Lymphocytes 3.7 thou/uL (1.20-3.40); #Monocytes 0.9 thou/uL (0.11-0.59); #Neutrophils 9.1 thou/uL (1.40-6.50); %Basophils 0.1 % (0.0-1.0); %Eosinophils 0.5 % (0.0-10.0); %Lymphocytes 27.1 % (21.0-51.0); %Monocytes 6.3 % (0.0-10.0); Hemoglobin 14.1 g/dL (12.0-16.0); Mean Corpuscular HGB CONC 32.9 g/dL (32.0-36.0); Mean Corpuscular Hemoglobin 30.5 pg (27.0-31.0); Mean Corpuscular Volume 92.6 fl (78.0-98.0); Mean Platelet Volume 6.9 fL (7.4-10.4); Platelet Count 292 10x3/uL (130-400); RBC Distribution Width 12.4 % (11.5-14.5); Red Blood Cell (RBC) Count 4.63 mill/uL (4.20-5.40); White Blood Cell (WBC) Count 13.8 10x3/uL (4.8-10.8)
[2022-10-16 06:43] LABS: Anion Gap 12 mmol/L (10-20); BUN (Urea Nitrogen) 16 mg/dL (9.8-20.1); Calc. Creatinine Clearance 79 mL/min (70-130); Calcium 8.3 mg/dL (7.8-10.44); Carbon Dioxide 23 mmol/L (23-31); Chloride 109 mmol/L (98-107); Estimated GFR 91; Glucose 98 mg/dL (83-110); Magnesium 2.2 mg/dL (1.6-2.6); Potassium 3.9 mmol/L (3.5-5.1); Sodium 140 mmol/L (136-145)
[2022-10-16] MEDS: Mometasone/Formoterol 200/5 60 PUFF INH SCH ×2 (07:16→19:00)
[2022-10-16] MEDS: Albuterol 200 PUFF (6.7GM INHALER) INH SCH ×3 (07:16→18:59)
[2022-10-16] MEDS: Ipratropium 200 Puff Oral Inhaler INH SCH ×3 (07:16→18:59)
[2022-10-16] MEDS: predniSONE 20 MG TAB PO SCH (09:50)
[2022-10-16] MEDS: Metoprolol Tartrate 25 MG TAB PO SCH ×2 (09:51→21:17)
[2022-10-16] MEDS: Docusate 100 MG CAP PO SCH ×2 (09:51→21:17)
[2022-10-16] MEDS: Cefdinir 300 MG CAP PO SCH ×2 (09:51→21:17)
[2022-10-16] MEDS: Clopidogrel Bisulfate 75 MG TAB PO SCH (09:51)
[2022-10-16] MEDS: Aspirin Chewable 81 MG TAB PO SCH (09:51)
[2022-10-16] MEDS: HumaLOG 300 UNITS/3 ML VIAL SC PRN (17:18)
[2022-10-16] MEDS: Atorvastatin Calcium 40 MG TAB PO SCH (21:17)
[2022-10-17 04:33] LABS: #Eosinphils 0.1 thou/uL (0.0-0.7); #Lymphocytes 3.5 thou/uL (1.20-3.40); #Neutrophils 10.9 thou/uL (1.40-6.50); %Eosinophils 0.6 % (0.0-10.0); %Lymphocytes 22.6 % (21.0-51.0); %Monocytes 6.3 % (0.0-10.0); %Neutrophils 70.5 % (42.0-75.0); Mean Corpuscular Hemoglobin 30.4 pg (27.0-31.0); Mean Corpuscular Volume 91.9 fl (78.0-98.0); Mean Platelet Volume 6.7 fL (7.4-10.4); Platelet Count 289 10x3/uL (130-400); RBC Distribution Width 12.4 % (11.5-14.5); Red Blood Cell (RBC) Count 4.61 mill/uL (4.20-5.40); White Blood Cell (WBC) Count 15.5 10x3/uL (4.8-10.8)
[2022-10-17 04:53] LABS: Anion Gap 15 mmol/L (10-20); BUN (Urea Nitrogen) 20 mg/dL (9.8-20.1); Calc. Creatinine Clearance 70 mL/min (70-130); Calcium 8.3 mg/dL (7.8-10.44); Carbon Dioxide 19 mmol/L (23-31); Chloride 109 mmol/L (98-107); Estimated GFR 85; Glucose 179 mg/dL (83-110); Magnesium 1.9 mg/dL (1.6-2.6); Potassium 3.9 mmol/L (3.5-5.1); Sodium 139 mmol/L (136-145)
[2022-10-17] MEDS: HumaLOG 300 UNITS/3 ML VIAL SC PRN (06:14)
[2022-10-17] MEDS: Albuterol 200 PUFF (6.7GM INHALER) INH SCH ×3 (06:59→18:32)
[2022-10-17] MEDS: Ipratropium 200 Puff Oral Inhaler INH SCH ×3 (06:59→18:34)
[2022-10-17] MEDS: Mometasone/Formoterol 200/5 60 PUFF INH SCH ×2 (07:00→18:35)
[2022-10-17] MEDS: predniSONE 20 MG TAB PO SCH (09:01)
[2022-10-17] MEDS: Aspirin Chewable 81 MG TAB PO SCH (09:02)
[2022-10-17] MEDS: Cefdinir 300 MG CAP PO SCH ×2 (09:02→20:44)
[2022-10-17] MEDS: Metoprolol Tartrate 25 MG TAB PO SCH ×2 (09:02→20:45)
[2022-10-17] MEDS: Docusate 100 MG CAP PO SCH ×2 (09:02→20:45)
[2022-10-17] MEDS: Clopidogrel Bisulfate 75 MG TAB PO SCH (09:02)
[2022-10-17] MEDS: Atorvastatin Calcium 40 MG TAB PO SCH (20:44)
[2022-10-18 05:19] LABS: Anion Gap 16 mmol/L (10-20); BUN (Urea Nitrogen) 19 mg/dL (9.8-20.1); Calc. Creatinine Clearance 71 mL/min (70-130); Calcium 8.3 mg/dL (7.8-10.44); Carbon Dioxide 18 mmol/L (23-31); Chloride 108 mmol/L (98-107); Estimated GFR 87; Glucose 110 mg/dL (83-110); Potassium 4.5 mmol/L (3.5-5.1); Sodium 137 mmol/L (136-145)
[2022-10-18] MEDS: Ipratropium 200 Puff Oral Inhaler INH SCH ×3 (07:30→18:49)
[2022-10-18] MEDS: Mometasone/Formoterol 200/5 60 PUFF INH SCH ×2 (07:32→18:49)
[2022-10-18] MEDS: Albuterol 200 PUFF (6.7GM INHALER) INH SCH ×3 (07:32→18:46)
[2022-10-18] MEDS: Clopidogrel Bisulfate 75 MG TAB PO SCH (08:13)
[2022-10-18] MEDS: Aspirin Chewable 81 MG TAB PO SCH (08:13)
[2022-10-18] MEDS: predniSONE 20 MG TAB PO SCH (08:13)
[2022-10-18] MEDS: Docusate 100 MG CAP PO SCH ×2 (08:13→21:11)
[2022-10-18] MEDS: Cefdinir 300 MG CAP PO SCH ×2 (08:13→21:11)
[2022-10-18] MEDS: Metoprolol Tartrate 25 MG TAB PO SCH ×2 (08:26→21:12)
[2022-10-18] MEDS ORDERED: Sodium Chloride 0.9% 500 ML IV SCH (08:30)
[2022-10-18] MEDS ORDERED: Morphine 2 MG/ML VIAL SLOW IVP SCH (09:00)
[2022-10-18 09:25] LABS: Eosinophils 1 % (0-10); Hemoglobin 12.8 g/dL (12.0-16.0); Lymphocytes 45 % (21-51); MDiff Complete? YES; Mean Corpuscular HGB CONC 27.8 g/dL (32.0-36.0); Mean Corpuscular Hemoglobin 26.5 pg (27.0-31.0); Mean Corpuscular Volume 95.4 fl (78.0-98.0); Monocytes 4 % (0-10); Neutrophil 50 % (42-75); Platelet Count 288 10x3/uL (130-400); Platelet Morphology Comment Appears Adequate; RBC Distribution Width 12.8 % (11.5-14.5); RBC Morphology Normal; Red Blood Cell (RBC) Count 4.82 mill/uL (4.20-5.40); White Blood Cell (WBC) Count 16.9 10x3/uL (4.8-10.8)
[2022-10-18] MEDS: Atorvastatin Calcium 40 MG TAB PO SCH (21:11)
[2022-10-19] MEDS: Ipratropium 200 Puff Oral Inhaler INH SCH (07:45)
[2022-10-19] MEDS: Albuterol 200 PUFF (6.7GM INHALER) INH SCH (07:45)
[2022-10-19] MEDS: Mometasone/Formoterol 200/5 60 PUFF INH SCH (07:46)
[2022-10-19] MEDS: predniSONE 20 MG TAB PO SCH (08:41)
[2022-10-19] MEDS: Clopidogrel Bisulfate 75 MG TAB PO SCH (08:41)
[2022-10-19] MEDS: Docusate 100 MG CAP PO SCH (08:41)
[2022-10-19] MEDS: Metoprolol Tartrate 25 MG TAB PO SCH (08:41)
[2022-10-19] MEDS: Aspirin Chewable 81 MG TAB PO SCH (08:41)
[2022-10-19 09:11] VITALS: TEMP 97.5
[2022-10-19 11:38] VITALS: BP 104/58
== END 2022-10-19 13:15 | DRG 189 ==
LOC: ERS 12:42 → T4-A 17:10 → 2NO 10-12 19:50
PROVIDERS: ADMIT Internal Medicine; ATTEND Internal Medicine
DX: J96.01 Acute respiratory failure with hypoxia (principal); J44.1 Chronic obstructive pulmonary disease with (acute) exacerbation; I69.351 Hemiplegia and hemiparesis following cerebral infarction affecting right dominant side; I47.29 Other ventricular tachycardia; Z51.5 Encounter for palliative care; Z20.822 Contact with and (suspected) exposure to COVID-19; J20.9 Acute bronchitis, unspecified; I25.10 Atherosclerotic heart disease of native coronary artery without angina pectoris; I10 Essential (primary) hypertension; E78.5 Hyperlipidemia, unspecified; E11.51 Type 2 diabetes mellitus with diabetic peripheral angiopathy without gangrene; D64.9 Anemia, unspecified; I25.2 Old myocardial infarction; Z79.82 Long term (current) use of aspirin; Z79.01 Long term (current) use of anticoagulants; Z79.899 Other long term (current) drug therapy; Z87.891 Personal history of nicotine dependence; Z95.5 Presence of coronary angioplasty implant and graft
CPT/HCPCS: 36415; 36416; 70450; 71045; 71275; 78452; 80048; 80053; 80061; 80076; 81003; 83036; 83735; 83880; 84484; 85025; 87081; 87086; 87633; 93005; 93017; 93306; 93970; 94640; 96365; 96367; 96375; A9500; J0456; J0696; J1650; J1815; J2785; J2920; J3475; J3490; J7030; J7050; J7512; J7620; Q9967

== ENCOUNTER 2023-04-10 21:20 | Inpatient (IN) | payer OTHER ==
[2023-04-10 23:27] LABS: #Monocytes 1.1 thou/uL (0.11-0.59); #Neutrophils 7.4 thou/uL (1.40-6.50); %Basophils 0.4 % (0.0-1.0); %Eosinophils 0.4 % (0.0-10.0); %Lymphocytes 13.8 % (21.0-51.0); %Monocytes 10.8 % (0.0-10.0); Hematocrit 54.8 % (36.0-47.0); Hemoglobin 17.1 g/dL (12.0-16.0); Mean Corpuscular HGB CONC 31.2 g/dL (32.0-36.0); Mean Corpuscular Hemoglobin 27.6 pg (27.0-31.0); Mean Corpuscular Volume 88.4 fl (78.0-98.0); Mean Platelet Volume 9.2 fL (7.4-10.4); Platelet Count 265 10x3/uL (130-400); RBC Distribution Width 13.7 % (11.5-14.5)
[2023-04-10 23:56] LABS: ALT (SGPT) 28 U/L (8-55); AST (SGOT) 34 U/L (5-34); Albumin 3.6 g/dL (3.4-4.8); Alkaline Phosphatase 74 U/L (40-110); Anion Gap 22 mmol/L (10-20); BUN (Urea Nitrogen) 12 mg/dL (9.8-20.1); Bilirubin, Total 0.9 mg/dL (0.2-1.2); Calc. Creatinine Clearance 0 mL/min (70-130); Calcium 8.8 mg/dL (7.8-10.44); Carbon Dioxide 17 mmol/L (23-31); Chloride 104 mmol/L (98-107); Estimated GFR 79; Globulin 4.1 g/dL (2.4-3.5); Glucose 129 mg/dL (83-110); Potassium 4.5 mmol/L (3.5-5.1); Protein, Total 7.7 g/dL (5.8-8.1); Sodium 138 mmol/L (136-145)
[2023-04-11 00:07] LABS: Troponin I Less than 0.010 ng/mL (< 0.028)
[2023-04-11 00:11] LABS: Bacteria/HPF 4+ HPF (None Seen); Bilirubin Negative (Negative); Blood, Urine Negative (Negative); CAUTI Indications for Culture Alt mental st,lethar; Clarity Turbid (Clear); Glucose, Urine (Dipstick) Normal (Negative); Ketone, Urine 40 mg/dL (Negative); Leukocyte 250 Leu/uL (Negative); Nitrite Negative (Negative); Protein, Urine (Dipstick) 30 mg/dL (Neg-Trace); RBC/HPF 0-3 HPF (0-3); Specific Gravity, Urine 1.023 (1.002-1.036); Squamous Epithelial 0-3 HPF (0-3)
[2023-04-11 00:16] LABS: Urine Culture Reflex Yes Yes
[2023-04-11] MEDS ORDERED: fentaNYL 50 mcg/mL 1 mL Vial ONE (00:20)
[2023-04-11] MEDS ORDERED: cefTRIAXone (ROCEPHIN) 1 GM VIAL ONE (00:29)
[2023-04-11] MEDS ORDERED: Ipratropium Bromide 2.5 ml Neb ONE (01:32)
[2023-04-11] MEDS ORDERED: Albuterol 2.5 MG/0.5 ML NEB ONE (01:32)
[2023-04-11] MEDS ORDERED: Ondansetron PF 4 MG/2 ML Vial IVP PRN (01:56)
[2023-04-11] MEDS ORDERED: Senokot S 8.6-50 MG TAB PO PRN (01:56)
[2023-04-11] MEDS ORDERED: Acetaminophen 325 MG TAB PO PRN (01:56)
[2023-04-11] MEDS ORDERED: Acetaminophen 650 MG Suppository PR PRN (01:56)
[2023-04-11] MEDS ORDERED: Ondansetron ODT 4 MG TAB PO PRN (01:56)
[2023-04-11] MEDS ORDERED: Bisacodyl 5 MG TAB PO PRN (01:56)
[2023-04-11] MEDS ORDERED: Phenazopyridine HCl 100 MG TAB PO SCH (02:30)
[2023-04-11] MEDS ORDERED: methylPREDNISolone Sod Succ 40 MG VIAL IVP SCH (02:30)
[2023-04-11] MEDS ORDERED: Nystatin Powder 15 GM BOT TOP PRN ×2 (02:40→13:23)
[2023-04-11] MEDS ORDERED: Sodium Chloride 0.9% 1,000 ML IV SCH (03:30)
[2023-04-11 03:45] VITALS: BMI 27.4
[2023-04-11] MEDS: methylPREDNISolone Sod Succ 40 MG VIAL IVP SCH ×3 (03:49→17:12)
[2023-04-11] MEDS: Azithromycin 500 MG in Sodium Chloride 0.9% 250 ML 250 ML IVPB SCH (04:02)
[2023-04-11 05:47] LABS: #Monocytes 0.7 thou/uL (0.11-0.59); #Neutrophils 5.7 thou/uL (1.40-6.50); %Basophils 0.4 % (0.0-1.0); %Eosinophils 0.1 % (0.0-10.0); %Lymphocytes 16.1 % (21.0-51.0); %Monocytes 8.9 % (0.0-10.0); %Neutrophils 73.9 % (42.0-75.0); Hematocrit 49.7 % (36.0-47.0); Hemoglobin 15.2 g/dL (12.0-16.0); Mean Corpuscular HGB CONC 30.6 g/dL (32.0-36.0); Mean Corpuscular Hemoglobin 27.7 pg (27.0-31.0); Mean Corpuscular Volume 90.5 fl (78.0-98.0); Mean Platelet Volume 9.8 fL (7.4-10.4); Platelet Count 251 10x3/uL (130-400); RBC Distribution Width 13.8 % (11.5-14.5); Red Blood Cell (RBC) Count 5.49 mill/uL (4.20-5.40); White Blood Cell (WBC) Count 7.7 10x3/uL (4.8-10.8)
[2023-04-11 06:20] LABS: Anion Gap 18 mmol/L (10-20); BUN (Urea Nitrogen) 11 mg/dL (9.8-20.1); Calc. Creatinine Clearance 75 mL/min (70-130); Calcium 8.1 mg/dL (7.8-10.44); Carbon Dioxide 16 mmol/L (23-31); Chloride 107 mmol/L (98-107); Estimated GFR 85; Glucose 173 mg/dL (83-110); Sodium 137 mmol/L (136-145)
[2023-04-11] MEDS: guaiFENesin/DM ER PO SCH ×2 (08:14→20:36)
[2023-04-11] MEDS: Famotidine 20 MG TAB PO SCH ×2 (08:14→20:36)
[2023-04-11] MEDS: Phenazopyridine HCl 100 MG TAB PO SCH ×3 (08:14→17:12)
[2023-04-11] MEDS ORDERED: Iopamidol-370 76% 500 ML MDV (1 ML CHARGE) ONE (10:00)
[2023-04-11] MEDS: Metoprolol Tartrate 25 MG TAB PO SCH (20:36)
[2023-04-11] MEDS: Atorvastatin Calcium 40 MG TAB PO SCH (20:36)
[2023-04-11] MEDS: Docusate 100 MG CAP PO SCH (20:36)
[2023-04-12] MEDS: cefTRIAXone\\ROCEPHIN 1 GM in Sodium Chloride 0.9% 100 ML IVPB SCH (01:01)
[2023-04-12] MEDS: methylPREDNISolone Sod Succ 40 MG VIAL IVP SCH ×3 (01:02→20:39)
[2023-04-12] MEDS: Azithromycin 500 MG in Sodium Chloride 0.9% 250 ML 250 ML IVPB SCH (03:00)
[2023-04-12] MEDS: Phenazopyridine HCl 100 MG TAB PO SCH ×3 (08:52→17:11)
[2023-04-12] MEDS: Metoprolol Tartrate 25 MG TAB PO SCH ×2 (08:52→20:40)
[2023-04-12] MEDS: Clopidogrel Bisulfate 75 MG TAB PO SCH (08:52)
[2023-04-12] MEDS: Docusate 100 MG CAP PO SCH ×2 (08:52→20:40)
[2023-04-12] MEDS: Famotidine 20 MG TAB PO SCH ×2 (08:52→20:46)
[2023-04-12] MEDS: Aspirin Chewable 81 MG TAB PO SCH (08:52)
[2023-04-12] MEDS: guaiFENesin/DM ER PO SCH ×2 (08:52→20:46)
[2023-04-12] MEDS ORDERED: Sodium Bicarbonate Tab 325 MG TAB PO SCH ×2 (10:56→11:30)
[2023-04-12] MEDS ORDERED: Bisacodyl 10 MG SUPP PR SCH (11:00)
[2023-04-12] MEDS: Atorvastatin Calcium 40 MG TAB PO SCH (20:40)
[2023-04-12] MEDS: Sodium Bicarbonate Tab 325 MG TAB PO SCH (20:40)
[2023-04-13] MEDS: cefTRIAXone\\ROCEPHIN 1 GM in Sodium Chloride 0.9% 100 ML IVPB SCH (01:33)
[2023-04-13] MEDS: Azithromycin 500 MG in Sodium Chloride 0.9% 250 ML 250 ML IVPB SCH (02:58)
[2023-04-13] MEDS: Clopidogrel Bisulfate 75 MG TAB PO SCH (09:05)
[2023-04-13] MEDS: Docusate 100 MG CAP PO SCH ×2 (09:05→20:11)
[2023-04-13] MEDS: Aspirin Chewable 81 MG TAB PO SCH (09:05)
[2023-04-13] MEDS: Famotidine 20 MG TAB PO SCH ×2 (09:05→20:11)
[2023-04-13] MEDS: Polyethylene Glycol 3350 17 GM Packet PO SCH (09:06)
[2023-04-13] MEDS: Metoprolol Tartrate 25 MG TAB PO SCH ×2 (09:06→20:11)
[2023-04-13] MEDS: Phenazopyridine HCl 100 MG TAB PO SCH ×3 (09:06→17:21)
[2023-04-13] MEDS: guaiFENesin/DM ER PO SCH ×2 (09:06→20:10)
[2023-04-13] MEDS: Sodium Bicarbonate Tab 325 MG TAB PO SCH ×2 (09:07→20:10)
[2023-04-13] MEDS: methylPREDNISolone Sod Succ 40 MG VIAL IVP SCH ×2 (09:07→20:11)
[2023-04-13] MEDS ORDERED: LevoFLOXacin 750 MG TAB PO SCH (10:51)
[2023-04-13] MEDS: Atorvastatin Calcium 40 MG TAB PO SCH (20:11)
[2023-04-14] MEDS: LevoFLOXacin 750 MG TAB PO SCH (05:16)
[2023-04-14] MEDS: predniSONE 20 MG TAB PO SCH (09:05)
[2023-04-14] MEDS: Aspirin Chewable 81 MG TAB PO SCH (09:06)
[2023-04-14] MEDS: Polyethylene Glycol 3350 17 GM Packet PO SCH (09:06)
[2023-04-14] MEDS: Docusate 100 MG CAP PO SCH ×2 (09:06→20:20)
[2023-04-14] MEDS: Clopidogrel Bisulfate 75 MG TAB PO SCH (09:06)
[2023-04-14] MEDS: Famotidine 20 MG TAB PO SCH ×2 (09:06→20:18)
[2023-04-14] MEDS: Sodium Bicarbonate Tab 325 MG TAB PO SCH ×2 (09:06→20:17)
[2023-04-14] MEDS: Phenazopyridine HCl 100 MG TAB PO SCH ×3 (09:06→17:16)
[2023-04-14] MEDS: Metoprolol Tartrate 25 MG TAB PO SCH ×2 (09:06→20:18)
[2023-04-14] MEDS: guaiFENesin/DM ER PO SCH ×2 (09:06→20:19)
[2023-04-14] MEDS: Atorvastatin Calcium 40 MG TAB PO SCH (20:18)
[2023-04-15] MEDS: LevoFLOXacin 750 MG TAB PO SCH (05:28)
[2023-04-15] MEDS: Famotidine 20 MG TAB PO SCH ×2 (08:31→21:21)
[2023-04-15] MEDS: Aspirin Chewable 81 MG TAB PO SCH (08:31)
[2023-04-15] MEDS: predniSONE 20 MG TAB PO SCH (08:31)
[2023-04-15] MEDS: Phenazopyridine HCl 100 MG TAB PO SCH ×3 (08:31→18:16)
[2023-04-15] MEDS: Sodium Bicarbonate Tab 325 MG TAB PO SCH ×2 (08:32→21:23)
[2023-04-15] MEDS: Docusate 100 MG CAP PO SCH ×2 (08:32→21:22)
[2023-04-15] MEDS: Metoprolol Tartrate 25 MG TAB PO SCH ×2 (08:32→21:21)
[2023-04-15] MEDS: Clopidogrel Bisulfate 75 MG TAB PO SCH (08:32)
[2023-04-15] MEDS: guaiFENesin/DM ER PO SCH ×2 (08:32→21:34)
[2023-04-15] MEDS: Polyethylene Glycol 3350 17 GM Packet PO SCH (08:34)
[2023-04-15] MEDS: Atorvastatin Calcium 40 MG TAB PO SCH (21:21)
[2023-04-16] MEDS: LevoFLOXacin 750 MG TAB PO SCH (05:47)
[2023-04-16 06:12] LABS: Anion Gap 13 mmol/L (10-20); BUN (Urea Nitrogen) 15 mg/dL (9.8-20.1); Calc. Creatinine Clearance 74 mL/min (70-130); Calcium 8.8 mg/dL (7.8-10.44); Carbon Dioxide 23 mmol/L (23-31); Chloride 107 mmol/L (98-107); Estimated GFR 84; Glucose 148 mg/dL (83-110); Sodium 139 mmol/L (136-145)
[2023-04-16] MEDS: predniSONE 20 MG TAB PO SCH (09:00)
[2023-04-16] MEDS: Phenazopyridine HCl 100 MG TAB PO SCH ×3 (09:04→17:37)
[2023-04-16] MEDS: Famotidine 20 MG TAB PO SCH ×2 (09:04→20:13)
[2023-04-16] MEDS: Docusate 100 MG CAP PO SCH ×2 (09:05→20:12)
[2023-04-16] MEDS: guaiFENesin/DM ER PO SCH ×2 (09:05→20:13)
[2023-04-16] MEDS: Sodium Bicarbonate Tab 325 MG TAB PO SCH ×2 (09:05→20:13)
[2023-04-16] MEDS: Clopidogrel Bisulfate 75 MG TAB PO SCH (09:05)
[2023-04-16] MEDS: Aspirin Chewable 81 MG TAB PO SCH (09:05)
[2023-04-16] MEDS: Polyethylene Glycol 3350 17 GM Packet PO SCH (09:06)
[2023-04-16] MEDS: Atorvastatin Calcium 40 MG TAB PO SCH (20:12)
[2023-04-17] MEDS: LevoFLOXacin 750 MG TAB PO SCH (05:33)
[2023-04-17] MEDS: Docusate 100 MG CAP PO SCH ×2 (08:36→20:00)
[2023-04-17] MEDS: Famotidine 20 MG TAB PO SCH ×2 (08:36→20:00)
[2023-04-17] MEDS: Phenazopyridine HCl 100 MG TAB PO SCH ×3 (08:36→16:56)
[2023-04-17] MEDS: Sodium Bicarbonate Tab 325 MG TAB PO SCH ×2 (08:36→20:00)
[2023-04-17] MEDS: Clopidogrel Bisulfate 75 MG TAB PO SCH (08:36)
[2023-04-17] MEDS: predniSONE 20 MG TAB PO SCH (08:36)
[2023-04-17] MEDS: guaiFENesin/DM ER PO SCH ×2 (08:36→20:00)
[2023-04-17] MEDS: Aspirin Chewable 81 MG TAB PO SCH (08:36)
[2023-04-17] MEDS: Polyethylene Glycol 3350 17 GM Packet PO SCH (08:39)
[2023-04-17] MEDS: Atorvastatin Calcium 40 MG TAB PO SCH (19:59)
[2023-04-18 07:31] VITALS: TEMP 97.6
[2023-04-18] MEDS: Clopidogrel Bisulfate 75 MG TAB PO SCH (08:31)
[2023-04-18] MEDS: Sodium Bicarbonate Tab 325 MG TAB PO SCH (08:31)
[2023-04-18] MEDS: Aspirin Chewable 81 MG TAB PO SCH (08:31)
[2023-04-18] MEDS: Famotidine 20 MG TAB PO SCH (08:31)
[2023-04-18] MEDS: Docusate 100 MG CAP PO SCH (08:31)
[2023-04-18] MEDS: predniSONE 20 MG TAB PO SCH (08:31)
[2023-04-18] MEDS: Phenazopyridine HCl 100 MG TAB PO SCH ×2 (08:31→14:07)
[2023-04-18] MEDS: guaiFENesin/DM ER PO SCH (08:32)
[2023-04-18] MEDS: Polyethylene Glycol 3350 17 GM Packet PO SCH (08:33)
[2023-04-18 11:32] VITALS: BP 110/71
== END 2023-04-18 17:54 | DRG 689 ==
LOC: ERS 21:20 → T4-A 04-11 01:33 → OBSVTOIN 04-12 08:06
PROVIDERS: ADMIT Internal Medicine; ATTEND Family Medicine
DX: N30.00 Acute cystitis without hematuria (principal); J96.01 Acute respiratory failure with hypoxia; J44.1 Chronic obstructive pulmonary disease with (acute) exacerbation; I69.351 Hemiplegia and hemiparesis following cerebral infarction affecting right dominant side; I25.10 Atherosclerotic heart disease of native coronary artery without angina pectoris; I73.9 Peripheral vascular disease, unspecified; I10 Essential (primary) hypertension; E78.5 Hyperlipidemia, unspecified; Z66 Do not resuscitate; B96.1 Klebsiella pneumoniae [K. pneumoniae] as the cause of diseases classified elsewhere; K59.00 Constipation, unspecified; Z79.82 Long term (current) use of aspirin; Z79.899 Other long term (current) drug therapy; Z95.5 Presence of coronary angioplasty implant and graft; Z98.890 Other specified postprocedural states; I25.2 Old myocardial infarction
CPT/HCPCS: 36415; 51701; 71045; 71275; 80048; 80053; 81001; 83605; 83880; 84484; 85025; 87077; 87086; 87186; 93005; 96365; 96375; 97139; J0456; J0696; J1650; J2920; J3010; J3490; J7050; J7512; J7611; Q9967